=== PATIENT | female | born 1935 | race Caucasian/White ===

== ENCOUNTER 2021-07-26 14:15 | Outpatient (CLI) | payer MEDICARE, SELFPAY ==
--- NOTE | ~2021-07-26 | XR_ITS ---
XR chest 2V DATE: 07/26/2021 15:16 INDICATION: Dyspnea on exertion. History of atrial fibrillation. TECHNIQUE: AP and lateral views COMPARISON: 11/04/2019 AP and lateral chest FINDINGS: There is a moderately large right pneumothorax, the right lung apex down 4.6 cm. Bilateral hyperinflation suggests COPD. There is not obvious tension pneumothorax, but the examinatio n is limited due to some rotation of the patient. Chronic mild blunting of the costophrenic angles. Cardiomegaly. Aortic calcification and tortuosity. No apparent hilar or mediastinal enlargement. There is diffuse osteopenia. There is prominent anterior wedge fracture deformity of a thoracolumbar vertebra. Is a new finding since 11/04/2019. There is scoliosis and degenerative change of the thoracic spine. IMPRESSION: Moderately large right pneumothorax; right chest tube placement is recommended. I telephoned the patient's phone number provided by the registration desk in the late hours of 021 and and spoke with her daughter Sergo Bermudez at 2342 hours; I explained the presence of the critica l right pneumothorax and the need for urgent chest tube placement. I strongly advised her to have her mother brought to emergency room immediately. I assured her that I would notified the emergency room physician that her mother would be coming. I then called ER physician Dr. Berry at 2347 hours and appraised him of the situation; he stated that the emergency room would be expecting the patient. Reviewed, dictated and finalized at location A. IMPRESSION: Moderately large right pneumothorax; right chest tube placement is recommended. I telephoned the patient's phone number provided by the registration desk in e late hours of 07/26/2021 and and spoke with her daughter Sergo Bermudez at 2342 ho urs; I explained the presence of the critical right pneumothorax and the need f or urgent chest tube placement. I strongly advised her to have her mother broug ht to emergency room immediately. I assured her that I would notified the emerg ency room physician that her mother would be coming. I then called ER physician Dr. Berry at 2347 hours and appraised him of the situ ation; he stated that the emergency room would be expecting the patient.
[2021-07-26 15:48] LABS: Basophils Absolute Auto 0.1 K/mm3 (0.0-0.1); Basophils Percent Auto 0.7 % (0.2-1.2); Eosinophils Absolute Auto 0.2 K/mm3 (0-0.3); Eosinophils Percent Auto 1.7 % (0-4.4); Hematocrit 43.7 % (37.0-47.0); Immature Granulocyte Absolute 0.02 K/mm3 (0.00-0.031); Immature Granulocyte Percent A 0.2 % (0-0.5); Lymphocytes Absolute Auto 1.43 K/mm3 (0.9-3.2); Lymphocytes Percent Auto 15.9 % (18.3-44.2); Mean Corpuscular Hemoglobin 30.8 pg (26-34); Mean Platelet Volume 10.5 fl (7.4-10.4); Monocytes Percent Auto 11.1 % (2.6-8.5); Neutrophils Absolute Auto 6.4 K/mm3 (1.3-6.7); Neutrophils Percent Auto 70.4 % (45.5-73.1); Platelet Count Result 297 k/mm3 (150-375); Red Blood Count 4.55 M/mm3 (4.2-5.4); Red Cell Distribution Width 14.9 % (11.5-14.5)
[2021-07-26 16:19] LABS: Alanine Aminotransferase 19 U/L (4-35); Albumin Level 3.9 g/dL (3.5-5.1); Alkaline Phosphatase 121 U/L (38-126); Anion Gap 9 mmol/L (8-16); Aspartate Amino Transferase 41 U/L (14-36); Bilirubin,Total 0.5 mg/dL (0.2-1.3); Blood Urea Nitrogen 16 mg/dL (7-17); Calcium 9.8 mg/dL (8.4-10.2); Carbon Dioxide 25 mmol/L (22-30); Chloride 105 mmol/L (98-107); Estimated Glomerular Filt Rate > 60; Glucose 150 mg/dL (65-110); Magnesium 2.1 mg/dL (1.6-2.3); Potassium 4.2 mmol/L (3.4-5.0); Sodium 139 mmol/L (137-145)
[2021-07-26 16:25] LABS: NT Pro B Type Natriuretic Pept 2910 pg/mL (5-100)
== END 2021-07-26 14:16 | disposition home or self-care (01) ==
PROVIDERS: PCP Family Medicine Adolescent Medicine; Visit Provider Nurse Practitioner Adult Health
DX: R06.02 Shortness of breath (principal); J93.9 Pneumothorax, unspecified
CPT/HCPCS: 36415; 71046; 80053; 83735; 83880; 85025

== ENCOUNTER 2021-07-27 00:32 | Inpatient (IN) | payer MEDICARE, SELFPAY ==
[2021-07-27] VITALS (21 sets, daily range): BP systolic 101–124; BP diastolic 45–84; PULSE 89–127; RESP 12–29; TEMP 36.2–37.1; O2SAT 89–100; BMI 23.3
--- NOTE | ~2021-07-27 | XR_ITS ---
EXAMINATION: XR chest 1V portable INDICATION: Crepitus, right-sided chest tube TECHNIQUE: Portable AP chest at 1151 hours COMPARISON: 0536 hours FINDINGS: A right-sided chest tube is again seen which is not significantly changed in position accou nting for differences in technique. There is a small persistent right apical pneumothorax. Diffuse keys bcutaneous emphysema is again noted throughout the right chest wall which tracks into the right neck. There is an unchanged opacity of the right lower lobe. Mild atelectasis is noted in the left lung ba se. The heart size is normal. IMPRESSION: 1. Small right pneumothorax. No definite change in position of the right-sided chest tube. 2. Widespread subcutaneous emphysema of the right hemithorax tracking into the right neck. 3. Right lower lobe opacities, consistent with atelectasis versus pneumonia. Reviewed, dictated and finalized at location A.
--- NOTE | ~2021-07-27 | XR_ITS ---
EXAMINATION: XR chest 2V DATE: 07/29/2021 15:07 INDICATION: Chest tube removal TECHNIQUE: AP and lateral views of the chest are obtained. COMPARISON: 1151 hours FINDINGS: The right-sided chest tube has been removed. A small right apical pneumothorax persists wit hout significant change. There are stable airspace opacities of the right lung base. Subcutaneous emp hysema of the right chest wall extending into right neck, back, right breast, and right upper extremi ty is again noted. The cardiomediastinal silhouette is stable. There are small pleural effusions. The re is moderate thoracic spondylosis. IMPRESSION: 1. Small, stable right pneumothorax status post right chest tube removal. 2. Widespread emphysema of the right hemithorax. 3. Stable right lower lobe opacities, consistent with atelectasis versus pneumonia. Reviewed, dictated and finalized at location A. IMPRESSION: 1. Small, stable right pneumothorax status post right chest tube removal. 2. Widespread emphysema of the right hemithorax. 3. Stable right lower lobe opacities, consistent with atelectasis versus pneumo sherrell.
--- NOTE | ~2021-07-27 | XR_ITS ---
EXAMINATION: XR chest-chest tube insert/pos DATE: 07/30/2021 06:49 INDICATION: Shortness of breath and tachycardia TECHNIQUE: frontal view of the chest was obtained. COMPARISON: Chest radiograph dated 07/30/2021 at 5:12 AM FINDINGS: Interval placement of a apically directed right chest tube with significant decrease in size of a now small pneumothorax at the right apex where there is up to 1 cm separation of the pleural margins. Pe rsistent airspace opacity and architectural distortion at the right lower lung zone. Left lung remain s clear. No pleural effusion or left-sided pneumothorax. The cardiomediastinal silhouette is normal. Extensive subcutaneous emphysema at the right chest wall, neck and upper arm. IMPRESSION: 1. Decrease in size of a now small right apical pneumothorax post right chest tube placement. 2. Opacities and architectural distortion at the right lower lung zone which could represent atelecta sis and/or pneumonia. Reviewed, dictated and finalized at location A. IMPRESSION: 1. Decrease in size of a now small right apical pneumothorax post right chest t ube placement. 2. Opacities and architectural distortion at the right lower lung zone which co uld represent atelectasis and/or pneumonia.
--- NOTE | ~2021-07-27 | XR_ITS ---
EXAMINATION: XR chest 1V portable DATE: 07/28/2021 06:10 INDICATION: Right pneumothorax TECHNIQUE: frontal view of the chest was obtained. COMPARISON: Chest radiograph and CT dated 07/27/2021 FINDINGS: Again seen is a right sided chest tube which appears to been advanced slightly with the proximal side -port now projecting within the pleural margins. Small residual right pneumothorax at the apex. Again seen is extensive subcutaneous edema throughout the right hemithorax extending to the right neck and upper arm. The focal airspace opacity in the right lower lobe has decreased and appears new since th e radiograph performed prior to chest tube placement on 07/26/2021 which strongly argues against petra holland. Mild streaky atelectasis at the left lung base. Emphysema better appreciated on prior CT. No p leural effusion or left-sided pneumothorax. The cardiomediastinal silhouette is normal. Mild S-shaped thoracolumbar scoliosis. IMPRESSION: 1. Slight advancement of the right-sided chest tube with residual small right apical pneumothorax. Pe rsistent extensive body wall emphysema. 2. Improvement in prior right lower lobe opacity which could represent atelectasis, pneumonia or pulm onary hemorrhage related to chest tube placement. 3. Emphysema. Reviewed, dictated and finalized at location A. IMPRESSION: 1. Slight advancement of the right-sided chest tube with residual small right a pical pneumothorax. Persistent extensive body wall emphysema. 2. Improvement in prior right lower lobe opacity which could represent atelecta sis, pneumonia or pulmonary hemorrhage related to chest tube placement. 3. Emphysema.
--- NOTE | ~2021-07-27 | CT_ITS ---
EXAMINATION: CT chest high resolution wo ms EXAM DATE: 07/27/2021 10:38 INDICATION: mass vs pna . Pneumothorax, chest tube. TECHNIQUE: Spiral CT of the chest without contrast. HRCT. Axial, coronal and sagittal images of the c hest were reviewed. Coronal maximum intensity pixel images of chest reviewed. The dose-length produ ct (DLP) for this examination was 198.70 mGy-cm. The exposure was tailored according to patient size (auto mA exposure control), and iterative reconstruction (ASIR) was used as additional dose reductio n technique. Correlation is made to recent chest x-rays. FINDINGS: There is a right-sided chest tube. There is small right-sided pneumothorax. There is exten sive emphysema within the right thoracic, axillary sarcoma, supraclavicular soft tissues. Trace leonard cardial effusion. Tracheobronchial tree is patent. There is no mediastinal, hilar or axillary lymp hadenopathy. There is right lower lobe airspace disease, appearance is most consistent with pneumonia and atelectasis but follow-up to resolution is indicated to exclude any chronic underlying mass. The re is moderate to severe emphysema. Heart normal in size. No evidence of coronary arterial calcific ation. Upper abdomen is unremarkable. Chronic L1 burst fracture with about 5 mm retropulsion at th e superior endplate. Moderate loss of this vertebral body height anteriorly and mid aspect. IMPRESSION: 1. Small right pneumothorax. Chest tube in position. Extensive subcutaneous emphysema. 2. Patchy right lower lobe atelectasis and pneumonia. Underlying cancer not excludable. Follow-up CT in 3 months recommended. 3. Moderate to severe emphysema. Reviewed, dictated and finalized at location B. IMPRESSION: 1. Small right pneumothorax. Chest tube in position. Extensive subcutaneous em physema. 2. Patchy right lower lobe atelectasis and pneumonia. Underlying cancer not ex cludable. Follow-up CT in 3 months recommended. 3. Moderate to severe emphysema.
--- NOTE | ~2021-07-27 | XR_ITS ---
EXAMINATION: XR chest 1V portable INDICATION: Shortness of breath TECHNIQUE: Portable AP chest at 0512 hours COMPARISON: 07/29/2021 FINDINGS: There has been interval increase in size of the right-sided pneumothorax with near complete collapse of the right lung. The midline structures appear central. The cardiomediastinal silhouette is normal. Extensive subcutaneous emphysema is again seen on the right side. IMPRESSION: 1. Reaccumulation of right-sided pneumothorax with near complete collapse of the right lung. Chest tu be has been inserted at the time of interpretation. Reviewed, dictated and finalized at location A. IMPRESSION: 1. Reaccumulation of right-sided pneumothorax with near complete collapse of th e right lung. Chest tube has been inserted at the time of interpretation.
--- NOTE | ~2021-07-27 | XR_ITS ---
EXAMINATION: XR chest-chest tube insert/pos DATE: 07/27/2021 at 1:14 AM INDICATION: Chest tube placement for pneumothorax TECHNIQUE: frontal view of the chest was obtained. COMPARISON: Chest radiograph dated 07/26/2021 FINDINGS: Interval placement of a right-sided chest tube which projects over the lower lung zone. Slight decrea se in size of a still small to moderate right pneumothorax. Partial collapse of the right lung. This involves primarily the right middle and lower lobes with areas of focal increased opacity greater flaquito n expected for degree of collapse and cannot exclude underlying malignancy or pneumonia. Left lung re afshin clear but hyperexpanded consistent with possible underlying COPD. No pleural effusion or left p neumothorax. The cardiomediastinal silhouette is within normal limits conifer slight leftward rotatio n of the patient. Prominent subcutaneous emphysema at the lateral right chest wall. IMPRESSION: 1. Slight decrease in size with still small to moderate right pneumothorax post right chest tube plac ement. 2. Increased opacity in the partial collapse right middle or lower lobes which raises concern for und erlying pneumonia or malignancy. 3. Appearance suggestive but not diagnostic of underlying COPD. Reviewed, dictated and finalized at location A. IMPRESSION: 1. Slight decrease in size with still small to moderate right pneumothorax post right chest tube placement. 2. Increased opacity in the partial collapse right middle or lower lobes which raises concern for underlying pneumonia or malignancy. 3. Appearance suggestive but not diagnostic of underlying COPD.
--- NOTE | ~2021-07-27 | XR_ITS ---
XR chest 1V portable DATE: 07/27/2021 20:58 INDICATION: Check chest tube placement TECHNIQUE: Portable upright AP chest on 07/27/2021 at 2050 hours COMPARISON: 07/27/2021 portable AP chest at 0 to 48 hours FINDINGS: The chest tube has changed in position since 07/27/2021 at 0248 hours, partially dislodged, port situated at the lateral ribs, apparently within the chest wall, chest tube extending approximate ly 3 cm or less into the thorax. The right pneumothorax is difficult to optimally assess because of the extensive subcutaneous emphyse ma. There is patchy infiltrate in the right mid to upper and right basilar lung mendoza. There is suggesti on of COPD. No left pneumothorax. No pleural effusion is evident. Cardiomegaly. Aortic calcification, ectasia and tortuosity. Diffuse osteopenia. Levoscoliosis and degenerative change of the thoracic spine. IMPRESSION: Partially dislodged right chest tube with extensive right thoracic, abdominal, right uppe r extremity and right cervical subcutaneous emphysema, increased substantially since 0248 hours Right pneumothorax is difficult to assess due to the extensive subcutaneous emphysema. Reviewed, dictated and finalized at location A. IMPRESSION: Partially dislodged right chest tube with extensive right thoracic, abdominal, right upper extremity and right cervical subcutaneous emphysema, in creased substantially since 0248 hours Right pneumothorax is difficult to assess due to the extensive subcutaneous emp hysema.
--- NOTE | ~2021-07-27 | XR_ITS ---
EXAMINATION: XR chest 1V portable DATE: 07/27/2021 at 2:48 AM INDICATION: Pneumothorax TECHNIQUE: frontal view of the chest was obtained. COMPARISON: Chest radiograph dated 07/27/2021 at 2:23 AM FINDINGS: Unchanged right chest tube which projects over the mid lung zone. The small to moderate right pneumot horax appears to be increased in size now relatively equally distributed between the right upper and lower lung zones. Persistent focal airspace opacity in the partially collapsed right middle or lower lobe. Mild streaky atelectasis at the left lower lung zone. No pleural effusion or left-sided pneumot horax. The cardiomediastinal silhouette is normal. Unchanged subcutaneous emphysema at the lateral ri ght chest wall. IMPRESSION: 1. Mild interval increase in size of a small to moderate right pneumothorax with unchanged right ches t tube. 2. Focal masslike opacity in the partially collapsed right middle or lower lobe which could be due to atelectasis but raises concern for pneumonia or malignancy. Reviewed, dictated and finalized at location A. IMPRESSION: 1. Mild interval increase in size of a small to moderate right pneumothorax wit h unchanged right chest tube. 2. Focal masslike opacity in the partially collapsed right middle or lower lobe which could be due to atelectasis but raises concern for pneumonia or malignan cy.
--- NOTE | ~2021-07-27 | XR_ITS ---
EXAMINATION: XR chest-chest tube insert/pos DATE: 07/27/2021 at 2:23 AM INDICATION: Chest tube insertion for right pneumothorax TECHNIQUE: frontal view of the chest was obtained. COMPARISON: Chest radiograph dated 07/27/2021 at 1:34 AM FINDINGS: Interval exchange of a right chest tube with the new tube projecting over the mid right lung zone. Co ntinued decrease in size of a now small residual right pneumothorax accumulating primarily at the low er lung zone. Persistent opacity in the partially collapsed right lower lung which could be due to at electasis but which raises concern for underlying pneumonia or malignancy. Visualized left lung remai ns clear with no pleural effusion or pneumothorax. The lateral most left lung is excluded from the fi eld-of-view. The cardiomediastinal silhouette is normal. Persistent subcutaneous emphysema at the lat eral right chest wall. IMPRESSION: 1. Continued decrease in size of a now small right pneumothorax post right chest tube replacement. 2. Opacity in the partially collapsed right lower lung which could be due to atelectasis but raises c oncern for underlying pneumonia or malignancy. Reviewed, dictated and finalized at location A. IMPRESSION: 1. Continued decrease in size of a now small right pneumothorax post right ches t tube replacement. 2. Opacity in the partially collapsed right lower lung which could be due to at electasis but raises concern for underlying pneumonia or malignancy.
--- NOTE | ~2021-07-27 | XR_ITS ---
EXAMINATION: XR chest 1V portable INDICATION: Right pneumothorax TECHNIQUE: Portable AP chest at 0904 hours COMPARISON: 07/30/2021 FINDINGS: A right-sided chest tube is again seen. There is a small right pneumothorax with slight int erval increase in size. Airspace opacity of the right lung base is stable. The left lung is clear. Th ere is no pleural effusion. The cardiomediastinal silhouette is normal. Extensive right sided subcuta neous gas persists but is slightly improved. IMPRESSION: 1. Small right pneumothorax with slight worsening. Reviewed, dictated and finalized at location A.
--- NOTE | ~2021-07-27 | XR_ITS ---
EXAMINATION: XR chest 1V portable DATE: 07/27/2021 at 1:34 AM INDICATION: Pneumothorax post chest tube placement with residual shortness of breath. TECHNIQUE: frontal view of the chest was obtained. COMPARISON: Chest radiograph dated 07/27/2021 at 1:14 AM FINDINGS: Continued gradual decrease in size of a residual small to moderate-sized right pneumothorax. Right ch est tube projecting over the lower lung zone remains unchanged. Persistent focal opacity in the parti ally collapsed right middle or lower lobe suspicious for pneumonia or malignancy. Left lung remains c lear. No pleural effusion or left pneumothorax. The cardiomediastinal silhouette is normal. Prominent subcutaneous edema at the lateral right chest wall. IMPRESSION: 1. Unchanged right chest tube with gradual decrease in a small to moderate-sized residual right pneum othorax. 2. Opacities in the partially collapsed right middle or lower lobe raising concern for pneumonia or m alignancy. Reviewed, dictated and finalized at location A. IMPRESSION: 1. Unchanged right chest tube with gradual decrease in a small to moderate-size d residual right pneumothorax. 2. Opacities in the partially collapsed right middle or lower lobe raising conc adelita for pneumonia or malignancy.
--- NOTE | ~2021-07-27 | XR_ITS ---
EXAMINATION: XR chest 1V portable DATE: 07/29/2021 05:46 INDICATION: Right pneumothorax TECHNIQUE: frontal view of the chest was obtained. COMPARISON: Chest radiograph dated 07/28/[address] dated 07/27/2021 FINDINGS: Tiny residual right apical pneumothorax with unchanged chest tube projecting over the lateral right m idlung zone. Persistent subtle opacity right lower lung zone. No pleural effusion or left pneumothora x. The cardiomediastinal silhouette is normal. Unchanged extensive soft tissue gas at the right chest wall extending to the right neck and upper arm. IMPRESSION: 1. Residual tiny right apical pneumothorax with unchanged right chest tube. 2. Persistent opacity in the right lower lobe which could represent atelectasis and/or pneumonia. 3. Emphysema better appreciated on prior CT. Reviewed, dictated and finalized at location A.
--- NOTE | 2021-07-27 00:59 | ECG_ITS ---
Measurements Intervals [place] Rate: 101 P: AR: 0 QRS: 73 QRSD: 75 T: 20 QT: 370 QTc: 481 Interpretive Statements ATRIAL FIBRILLATION WITH RAPID VENTRICULAR RESPONSE VENTRICULAR PREMATURE COMPLEX BORDERLINE T WAVE ABNORMALITY- ANTERIOR LEADS BASELINE ARTIFACT- I, II, III, AVR, AVL, AVF, V1-V6 ABNORMAL ECG Electronically Signed On 07-27-2021 6:11:00 CDT by Stanton Mckeon D.O.
--- NOTE | 2021-07-27 01:01 | ED.GENADULT ---
HPI - General Adult General Chief complaint: Shortness of Breath/Dyspnea Stated complaint: sob Time Seen by Provider: 07/27/21 00:35 Source: patient and family History of Present Illness HPI narrative: Patient is a 86 y/o female complaining of mild SOB for last 3 days. She is SOB at rest, but her symptoms get worse with exertion. She has no chest pain. She has some mild cough. She was in Dr. Minaya's office and outpatient Xray was ordered. Xray showed pneumothorax and she was directed to ED for further evaluation. Related Data Allergies Allergy/AdvReac Type Severity Reaction Status Date / Time Penicillins Allergy Unknown Unknown Verified 07/27/21 01:18 Review of Systems Constitutional: Constitutional: Denies chills, Denies fever(s), Denies headache(s) and Denies weakness Eyes: Eyes: Denies blurry vision ENT: Denies headache(s) and Denies neck pain Cardiovascular: Cardiovascular: Denies chest pain and Denies dyspnea Respiratory: Respiratory: Reports cough and Reports dyspnea Gastrointestinal: Gastrointestinal: Denies abdominal pain, Denies diarrhea, Denies nausea and Denies vomiting Genitourinary: Genitourinary: Denies hematuria and Denies dysuria Musculoskeletal: Musculoskeletal: Denies back pain and Denies neck pain Neurologic: Denies headache(s) and Denies weakness [facility] Past Medical History Medical History (Updated 07/27/21 @ 16:15 by Katherine Berry MD) Afib Anemia Back pain Depression Left elbow fracture Leg fracture, right Shingles UTI (urinary tract infection) Surgical History Surgical History (Updated 07/27/21 @ 07:50 by Kayla James DO) History of appendectomy History of tonsillectomy Status post cataract extraction of both eyes with insertion of intraocular lens Family History Family History Father Acute myocardial infarction Mother Alcoholism Sibling Cirrhosis Social History Social History Social History: She is since 2017. Her oldest daughter Rose lives with her. She has had 3 daughters. 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 Lifelong nonsmoker, no alcohol or illicit drugs. Had heavy secondhand smoke exposure as a child and young adult. Code status: DNR/DNI per patient request. She states that she is lift a long full life and is not afraid of . Healthcare power of divorce attorney: Rose (daughter) Smoking status: Never smoker Alcohol intake: never Substance use: never Gender identity (if verbalized by the patient): Female Spiritual care concerns: No Agree to blood products: Yes Exam Const: General: no acute distress and well developed Orientation/consciousness: oriented to person, oriented to place, oriented to time and patient oriented x3 HENMT: Head: normocephalic Ears: external ears normal General nose exam: Normal external nose present Eyes: General: appearance normal, both eyes and all related structures Conjunctivae: conjunctivae normal Neck: Neck: normal visual inspection and full ROM Chest: Chest palpation & inspection: normal inspection of the chest and no tenderness Resp: Effort & Inspection: normal respiratory effort Auscultation: clear to auscultation bilaterally and diminished lung sounds on the right Cardio: Rate: regular rate Rhythm: abnormal rhythm irregularly irregular GI: GI Palp: No abdominal tenderness and Yes Soft to palpation Skin: General skin exam: normal color and turgor normal Neuro: General: oriented to person, oriented to place, oriented to time and patient oriented x3 Cognition (Neuro): normal cognition Extrem: General: normal to inspection, full ROM and no pedal edema Psych: Appearance: grossly normal Mental Status: mental status grossly normal Affect: normal affect Course Consultations Consultation #1: Discussed with Dr. Savage, who agr
[2021-07-27 01:17] LABS: Basophils Absolute Auto 0.1 K/mm3 (0.0-0.1); Basophils Percent Auto 0.8 % (0.2-1.2); Eosinophils Absolute Auto 0.2 K/mm3 (0-0.3); Eosinophils Percent Auto 1.7 % (0-4.4); Hematocrit 46.2 % (37.0-47.0); Hemoglobin 14.7 g/dL (12.0-15.0); Immature Granulocyte Absolute 0.04 K/mm3 (0.00-0.031); Immature Granulocyte Percent A 0.4 % (0-0.5); Lymphocytes Absolute Auto 2.01 K/mm3 (0.9-3.2); Lymphocytes Percent Auto 19.5 % (18.3-44.2); Mean Corpuscular HGB Conc 31.8 g/dl (32-36); Mean Corpuscular Hemoglobin 30.8 pg (26-34); Mean Corpuscular Volume 96.7 fl (80-100); Monocytes Absolute Auto 0.8 K/mm3 (0.1-0.6); Monocytes Percent Auto 7.3 % (2.6-8.5); Neutrophils Absolute Auto 7.2 K/mm3 (1.3-6.7); Neutrophils Percent Auto 70.3 % (45.5-73.1); Platelet Count Result 310 k/mm3 (150-375); Red Blood Count 4.78 M/mm3 (4.2-5.4); Red Cell Distribution Width 14.8 % (11.5-14.5); White Blood Count 10.3 K/mm3 (4.5-10.0)
[2021-07-27 01:29] LABS: Partial Thromboplastin Time 31.4 SECONDS (22.3-36.8); Prothrombin Time 12.6 Seconds (11.1-14.7)
[2021-07-27 01:31] LABS: Alanine Aminotransferase 20 U/L (4-35); Albumin Level 4.2 g/dL (3.5-5.1); Alkaline Phosphatase 131 U/L (38-126); Anion Gap 10 mmol/L (8-16); Aspartate Amino Transferase 34 U/L (14-36); Bilirubin,Total 0.8 mg/dL (0.2-1.3); Blood Urea Nitrogen 16 mg/dL (7-17); Calcium 9.6 mg/dL (8.4-10.2); Carbon Dioxide 23 mmol/L (22-30); Chloride 105 mmol/L (98-107); Estimated Glomerular Filt Rate 60; Glucose 152 mg/dL (65-110); Potassium 4.1 mmol/L (3.4-5.0); Sodium 138 mmol/L (137-145)
--- NOTE | 2021-07-27 05:26 | ADMGEN ---
This patient, Mónica Blum, was admitted to IMU Room 212-01 at 0520. Patient/family oriented to hospital policies and general routines including ID bracelet, bed and alarms, visiting hours, pain management, procedures, bathroom and other care routines, personal items, smoking policy, room service/diet, and visiting hours. Information on how to activate the Rapid Response Team has been discussed. Patient/Family are encouraged to report perceived risks to care and to ask questions if they do not understand what they are told or what they should do.
[2021-07-27] MEDS: MORPHINE SULFATE (*CRX) 2 MG/ML INJ IV PUSH (06:20)
--- NOTE | 2021-07-27 06:24 | PC.NURSE ---
chest tube to rt chest. dressing dry and intact. noted bubbling in box with any movement, deep breath, cough or blowing of her nose. patient is in extreme pain and called dr meza for pain medication. had shar housekeeper child care, coleen stiles and myself try to minimize the leak. decreased it but is not gone. when patient is relaxed and not moving no leak noted. no crepitus noted. bloody drainage in chamber and secured to patients leg and to the chest tube box secured to bed. surgeon will be in a few hours to see patient.
--- NOTE | 2021-07-27 06:30 | PM.IMHP ---
H&P: HPI History of Present Illness Date/Time: 07/27/21 06:30 Chief Complaint: Pneumothorax on outpatient imaging Narrative: 86-year-old female with a past medical history of chronic atrial fibrillation and x-ray evidence of emphysema who presented to the ER from home via private vehicle due to shortness of breath and pneumothorax noted on outpatient imaging. The patient had some mild shortness of breath for 3 days. Her symptoms were worse with exertion. She went for outpatient evaluation by Dr. Kevin Minaya and had an x-ray performed which demonstrated a large right-sided pneumothorax. She was directed to come to the ER. She states that Dr. Kevin Minaya did the chest x-ray because he was going down his check list and she must of set enough thinks that made him suspicious to check an x-ray. She was not having any chest pain. She denies lower extremity swelling or orthopnea. She has not had any recent trauma. She had prior x-rays in the past demonstrated emphysematous changes. The patient reports that she never smoked and does not have a known history of COPD. Review of Systems Review of Systems: 12 systems were reviewed with pertinent positives and negatives per HPI. Except as documented in the HPI, all other systems were reviewed and are negative. [facility] Past Medical History Medical History (Updated 07/27/21 @ 06:35 by Kayla James DO) Afib Anemia Back pain Depression Left elbow fracture Leg fracture, right Shingles UTI (urinary tract infection) Surgical History Surgical History (Updated 07/27/21 @ 07:50 by Kayla James DO) History of appendectomy History of tonsillectomy Status post cataract extraction of both eyes with insertion of intraocular lens Family History Family History (Updated 07/27/21 @ 07:48 by Kayla James DO) Father Acute myocardial infarction Mother Alcoholism Sibling Cirrhosis Social History Social History (Updated 07/27/21 @ 07:47 by Kayla James DO) Social History: She is since 2017. Her oldest daughter Rose lives with her. She has had 3 daughters. 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 Lifelong nonsmoker, no alcohol or illicit drugs. Had heavy secondhand smoke exposure as a child and young adult. Code status: DNR/DNI per patient request. She states that she is lift a long full life and is not afraid of . Healthcare power of claims attorney: Rose (daughter) Smoking status: Never smoker Alcohol intake: never Substance use: never Gender identity (if verbalized by the patient): Female Spiritual care concerns: No Agree to blood products: Yes Comments She has 1 brother in [place]. Her neck sister of cirrhosis. She has 3 much younger younger siblings at her still living and in good health. Meds Home Medications and Allergies Home Medications Medication Instructions Recorded Confirmed Type aspirin 325 mg PO DAILY #30 tablet 11/08/19 07/27/21 Rx metoprolol tartrate 37.5 mg PO Q12HR #60 tablet 11/08/19 07/27/21 Rx Allergies Allergy/AdvReac Type Severity Reaction Status Date / Time Penicillins Allergy Unknown Unknown Verified 07/27/21 01:18 Vital Signs Vital Signs - 24 hr 07/27/21 00:34 07/27/21 00:52 07/27/21 01:15 Temperature 97.8 F Pulse Rate 99 100 Respiratory Rate 16 16 Blood Pressure 119/84 124/48 L Pulse Oximetry 92 92 94 07/27/21 01:17 07/27/21 02:09 07/27/21 02:13 Temperature Pulse Rate 92 108 H Respiratory Rate 29 H 23 H Blood Pressure 114/81 111/67 Pulse Oximetry 93 95 93 07/27/21 03:03 07/27/21 03:24 07/27/21 04:22 Temperature Pulse Rate 107 H 102 H 104 H Respiratory Rate 18 20 26 H Blood Pressure 110/69 112/72 117/66 Pulse Oximetry 99 100 99 07/27/21 05:22 07/27/21 05:34 07/27/21 05:46 Temperature 98.4 F Pulse Rate 103 H 104 H 104 H Respiratory Rate 24 H 22 H 22 H Blood Pressure 117/69 111/82 Pulse O
[2021-07-27] MEDS: HYDROcodone/acetaminophen (*CRX) 5-325 MG TABLET 1 TAB PO ×3 (07:05→21:10)
[2021-07-27] MEDS: ASPIRIN 325 MG TABLET PO (08:27)
[2021-07-27] MEDS: METOPROLOL TARTRATE 12.5 MG TABLET PO ×2 (08:27→19:53)
[2021-07-27] MEDS: METOPROLOL TARTRATE 25 MG TABLET PO ×2 (08:27→19:52)
[2021-07-27] MEDS: MORPHINE SULFATE (*CRX) 4 MG/ML INJ IV PUSH (08:39)
[2021-07-27 08:43] LABS: Hemoglobin A1C 5.8 % (<5.7)
--- NOTE | 2021-07-27 12:05 | PM.CNGS ---
Assessment and Plan Assessment and plan (1) Spontaneous pneumothorax: Code(s): J93.83 - Other pneumothorax Status: Acute Assessment and Plan: Large right pneumothorax with chest tube placed in the ER and in good position. There is an air leak on exam. Keep chest tube to -20 cm wall suction and reassess chest x-ray tomorrow morning. Chest CT ordered by Hospitalist today due to opacity noted on x-ray in the partially collapsed right lower lung. Will add incentive spirometry. (2) Atrial fibrillation with rapid ventricular response: Code(s): I48.91 - Unspecified atrial fibrillation Status: Acute Assessment and Plan: Rate controlled on my exam. On telemetry in IMU with heart rate in 90-100's. Okay to transfer her out to a medical floor from our standpoint. Additional Plan I have discussed the patient's case and plan of care with Dr. Savage. History of Present Illness Consult details Consult date: 07/27/21 Reason for consult: chest tube (Right pneumothorax) Requesting physician: Katherine Berry MD Narrative: This is an 86-year-old female who was directed to the ER for evaluation after having findings of a large right pneumothorax on an outpatient chest x-ray. She is a poor historian when questioning her about recent history, therefore her history was obtained from her electronic medical record and after speaking with her daughter on the phone with the patient's permission. She reports the patient and herself had a cough with congestion about 2-3 weeks ago, which has since improved after receiving oral antibiotics. Over the past few days, she noticed worsening shortness of breath with exertion, and yesterday her mother was short of breath at rest with audible wheezing. Therefore, she scheduled an appointment with her Cardiology out of concern that it was related to her heart. She saw Cardiology yesterday as an outpatient and they ordered a chest x-ray. The patient was called through the night with the results and directed to go to the ER. Chest x-ray showed large right pneumothorax. No recent trauma. A chest tube was placed in the ER with only slight improvement of the pneumothorax, therefore a larger chest tube was placed. This resulted in more expansion of the lung, but still not full expansion. She was admitted to the Hospitalist. Our service was consulted for the chest tube. The patient denies any specific complaints when seen on the floor. Her chest tube is to -20 cm wall suction on my exam. Also, when speaking to her daughter on the phone, she does report that her confusion and memory loss is the patient's baseline. Review of Systems Review of Systems: ROS unobtainable: Yes other (limited d/t pt being a poor historian, likely dementia) [facility] Past Medical History Medical History (Updated 07/27/21 @ 06:35 by Kayla James DO) Afib Anemia Back pain Depression Left elbow fracture Leg fracture, right Shingles UTI (urinary tract infection) Surgical History Surgical History (Updated 07/27/21 @ 07:50 by Kayla James DO) History of appendectomy History of tonsillectomy Status post cataract extraction of both eyes with insertion of intraocular lens Family History Family History Father Acute myocardial infarction Mother Alcoholism Sibling Cirrhosis Social History Social History Social History: She is since 2017. Her oldest daughter Rose lives with her. She has had 3 daughters. 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 Lifelong nonsmoker, no alcohol or illicit drugs. Had heavy secondhand smoke exposure as a child and young adult. Code status: DNR/DNI per patient request. She states that she is lift a long full life and is not afraid of . Healthcare power of corporate associate attorney: Rose (daughter) Smoking status: Never smok
--- NOTE | 2021-07-27 14:33 | PM.IMPN ---
Progress Note: A&P Assessment and Plan (1) Spontaneous pneumothorax: Code(s): J93.83 - Other pneumothorax Status: Acute Assessment and Plan: Pneumothorax improved after chest tube placement ER. -currently on room air -chest CT shows atelectasis and pneumonia, start ceftriaxone and doxycycline (QTC slightly prolonged) -no signs of COVID at this time -Management per Surgical Service -Consider PT and OT when pt is more stable. (2) Atrial fibrillation with rapid ventricular response: Code(s): I48.91 - Unspecified atrial fibrillation Status: Acute Assessment and Plan: Patient has chronic atrial fibrillation and her heart rate waxes and wanes -continue home metoprolol -on daily aspirin (3) Pneumonia: Code(s): J18.9 - Pneumonia, unspecified organism Status: Acute Assessment and Plan: Patient CT shows right lower lobe pneumonia and atelectasis -plan to treat with ceftriaxone and doxycycline (QTC slightly elevated) -patient is currently off oxygen -no signs of sepsis (4) Impaired cognition: Code(s): R41.89 - Other symptoms and signs involving cognitive functions and awareness Status: Acute Assessment and Plan: Family states pt has a hx of repeating herself and some confusion -She is at [facility] -no official diagnosis of dementia per family but it is suspected -alert and oriented x 4 but is confused at times -monitor Time Spent With Patient Time with patient: 25 - 35 minutes Subjective Date/time seen: 07/27/21 14:33 Interval history: Pt is a 86-year-old female here for pneumothorax. Patient was seen today with no complaints. Although she is confused, she is able to answer questions appropriately. Pt denies nausea, vomiting, fevers, chills, constipation, diarrhea, chest pain, sob, or abdominal pain. Review of Systems Review of Systems: All systems reviewed & are unremarkable except as noted in HPI and below Exam Narrative: General: Well developed well nourished patient in NAD HEENT: normocephalic Neck: supple Neuro: Alert and oriented x4 technically but does have evidence confusion/dementia. She moves all her limbs spontaneously and does not appear to have any neurological deficits CV: Irregularly irregular Resp: Chest tube in place. Bilateral clear breath sounds throughout Abd: Soft, non distended. No pain to palpation. Positive bowel sounds Extremities: No swelling, erythema, or pain to palpation. Objective Data Vital Signs Vital Signs: Vital Signs - 24 hr 07/27/21 00:34 07/27/21 00:52 07/27/21 01:15 Temperature 97.8 F Pulse Rate 99 100 Respiratory Rate 16 16 Blood Pressure 119/84 124/48 L Pulse Oximetry 92 92 94 07/27/21 01:17 07/27/21 02:09 07/27/21 02:13 Temperature Pulse Rate 92 108 H Respiratory Rate 29 H 23 H Blood Pressure 114/81 111/67 Pulse Oximetry 93 95 93 07/27/21 03:03 07/27/21 03:24 07/27/21 04:22 Temperature Pulse Rate 107 H 102 H 104 H Respiratory Rate 18 20 26 H Blood Pressure 110/69 112/72 117/66 Pulse Oximetry 99 100 99 07/27/21 05:22 07/27/21 05:34 07/27/21 05:46 Temperature 98.4 F Pulse Rate 103 H 104 H 104 H Respiratory Rate 24 H 22 H 22 H Blood Pressure 117/69 111/82 Pulse Oximetry 98 89 L 89 L 07/27/21 06:00 07/27/21 08:00 07/27/21 08:27 Temperature 98.7 F Pulse Rate 108 H 108 H 89 Respiratory Rate 16 Blood Pressure 113/59 L Pulse Oximetry 100 07/27/21 10:00 07/27/21 12:00 Temperature 97.1 F L Pulse Rate 104 H 105 H Respiratory Rate 16 Blood Pressure 101/45 L Pulse Oximetry 99 Intake/Output Intake/Output: Intake & Output 07/24/21 07/25/21 07/26/21 07/27/21 23:59 23:59 23:59 23:59 Intake Total 240 Balance 240 Meds/Results Medications: Active Medications Generic Name Dose Route Start Last Admin Trade Name Freq PRN Reason Stop Dose Admin Hydrocodone Bitart/Acetaminophen 1 tab
[2021-07-27] MEDS: DOXYCYCLINE HYCLATE 100 MG TABLET PO (19:52)
[2021-07-27] MEDS: LORazepam INJ (*CRX) 2 MG/ML VIAL 1 MG IV PUSH (21:12)
[2021-07-28] VITALS (11 sets, daily range): BP systolic 98–121; BP diastolic 46–70; PULSE 64–109; RESP 17–21; TEMP 35.9–37.1; O2SAT 92–96
[2021-07-28] MEDS: ALBUTEROL SULFATE (*SP) AEROSOL 1 PUFF 2 PUFF INHALATION ×4 (00:15→20:33)
[2021-07-28] MEDS: MORPHINE SULFATE (*CRX) 4 MG/ML INJ IV PUSH ×3 (00:59→23:07)
[2021-07-28 05:36] LABS: Hematocrit 40.3 % (37.0-47.0); Hemoglobin 12.4 g/dL (12.0-15.0); Mean Corpuscular HGB Conc 30.8 g/dl (32-36); Mean Corpuscular Hemoglobin 30.9 pg (26-34); Mean Corpuscular Volume 100.5 fl (80-100); Mean Platelet Volume 10.3 fl (7.4-10.4); Platelet Count Result 257 k/mm3 (150-375); Red Blood Count 4.01 M/mm3 (4.2-5.4); Red Cell Distribution Width 14.7 % (11.5-14.5); White Blood Count 10.4 K/mm3 (4.5-10.0)
[2021-07-28] MEDS: ASPIRIN 325 MG TABLET PO (08:23)
[2021-07-28] MEDS: METOPROLOL TARTRATE 12.5 MG TABLET PO ×2 (08:23→20:51)
[2021-07-28] MEDS: DOXYCYCLINE HYCLATE 100 MG TABLET PO ×2 (08:24→20:51)
[2021-07-28] MEDS: METOPROLOL TARTRATE 25 MG TABLET PO ×2 (08:24→20:53)
[2021-07-28 10:18] LABS: Anion Gap 6 mmol/L (8-16); Blood Urea Nitrogen 17 mg/dL (7-17); Calcium 8.4 mg/dL (8.4-10.2); Carbon Dioxide 24 mmol/L (22-30); Chloride 104 mmol/L (98-107); Estimated CRCL calculation 47 ml/min; Estimated Glomerular Filt Rate > 60; Glucose 86 mg/dL (65-110); Potassium 4.2 mmol/L (3.4-5.0); Sodium 134 mmol/L (137-145)
[2021-07-28] MEDS: HYDROcodone/acetaminophen (*CRX) 5-325 MG TABLET 1 TAB PO (10:34)
--- NOTE | 2021-07-28 11:23 | PM.PNGS ---
Progress Note: A&P Assessment and Plan (1) Pneumothorax on right: Code(s): J93.9 - Pneumothorax, unspecified Status: Acute Assessment and Plan: stable, will place CT to H2O seal, recheck CXR in am Subjective Subjective Date/Time Seen: 07/28/21 11:23 pt seen and examined, events overnight noted, now c sitter Review of Systems Review of Systems: ROS unobtainable: Yes unobtainable due to medical condition and unobtainable due to mental status Exam Const: General: ill appearing Nutritional Appearance: average body habitus Orientation/consciousness: confusion, patient obtunded and lethargic Limitations: altered mental status Chest: Chest palpation & inspection: normal inspection of the chest Resp: Effort & Inspection: normal respiratory effort Auscultation: diminished lung sounds Other: R CT - C/D/I, no air leak Cardio: Rate: tachycardic Rhythm: regular rhythm GI: Inspection: normal to inspection and non-distended GI Palp: Yes Soft to palpation and No Tenderness to palpation present (GI) Objective Data Vital Signs Vital Signs: Vital Signs - 24 hr 07/27/21 12:00 07/27/21 16:00 07/27/21 19:52 Temperature 36.2 C L 37.1 C Pulse Rate 105 H 116 H 126 H Respiratory Rate 16 12 Blood Pressure 101/45 L 111/54 L Pulse Oximetry 99 93 07/27/21 19:53 07/27/21 21:59 07/28/21 00:00 Temperature 36.5 C Pulse Rate 127 H 100 Respiratory Rate 18 20 Blood Pressure 108/70 Pulse Oximetry 91 92 07/28/21 05:00 07/28/21 08:52 Temperature 36.6 C 36.1 C L Pulse Rate 106 H 103 H Respiratory Rate 20 21 H Blood Pressure 109/61 109/54 L Pulse Oximetry 96 95 Intake/Output Intake/Output: Intake & Output 07/25/21 07/26/21 07/27/21 07/28/21 23:59 23:59 23:59 23:59 Intake Total 530 0 Output Total 160 150 Balance 370 -150 Meds/Results Medications: Active Medications Generic Name Dose Route Start Last Admin Trade Name Freq PRN Reason Stop Dose Admin Hydrocodone Bitart/Acetaminophen 1 tab 07/27/21 06:05 07/28/21 10:34 Hydrocodone/Acetaminophen (*Crx) 5-325 Mg Tablet PO 1 tab Q6H PRN Administration Pain Rated 4-6 Albuterol 2 puff 07/27/21 21:15 07/28/21 06:15 Albuterol Sulfate (*Sp) Aerosol 1 Puff INHALATION Not Given Q4HRT [facility] Aspirin 325 mg 07/27/21 08:00 07/28/21 08:23 Aspirin 325 Mg Tablet PO 325 mg DAILY@0800 DAYANARA Administration Doxycycline Hyclate 100 mg 07/27/21 21:00 07/28/21 08:24 Doxycycline Hyclate 100 Mg Tablet PO 100 mg Q12HR DAYANARA Administration Ceftriaxone Sodium/Dextrose 1 gm in 50 mls @ 100 mls/hr 07/27/21 14:40 07/28/21 08:23 Rocephin 1 Gm/D5w 50 Ml IVPB 100 mls/hr QAM DAYANARA Administration Metoprolol Tartrate 25 mg 07/27/21 09:00 07/28/21 08:24 Metoprolol Tartrate 25 Mg Tablet PO 25 mg Q12HR DAYANARA Administration Metoprolol Tartrate 12.5 mg 07/27/21 09:00 07/28/21 08:23 Metoprolol Tartrate 12.5 Mg Tablet PO 12.5 mg Q12HR DAYANARA Administration Morphine Sulfate 4 mg 07/27/21 07:00 07/28/21 00:59 Morphine Sulfate (*Crx) 4 Mg/Ml Inj IV PUSH 4 mg Q3H PRN Administration Pain Rated 7-10 Radiology Results: ITS Impressions High Resolution CT 07/27/21 12:12 IMPRESSION: 1. Small right pneumothorax. Chest tube in position. Extensive subcutaneous emphysema. 2. Patchy right lower lobe atelectasis and pneumonia. Underlying cancer not excludable. Follow-up CT in 3 months recommended. 3. Moderate to severe emphysema. Chest X-Ray 07/28/21 08:01 IMPRESSION: 1. Slight advancement of the right-sided chest tube with residual small right apical pneumothorax. Persistent extensive body wall emphysema. 2. Improvement in prior right lower lobe opacity which could represent atelectasis, pneumonia or pulmonary hemorrhage related to chest tube placement. 3. Emphysema. Labs Labs: Laboratory Results - last 24 hr 07/28/21 07/28/21 04:26 08:22 WBC 10.4 H RBC 4.0
--- NOTE | 2021-07-28 14:29 | PM.IMPN ---
Progress Note: A&P Assessment and Plan (1) Spontaneous pneumothorax: Code(s): J93.83 - Other pneumothorax Status: Acute Assessment and Plan: Pneumothorax improved after chest tube placement ER. -currently on room air - patient apparently tried to pull out her chest tube while she was confused last night. Chest x-ray this morning shows that it is in place and there is a slight residual small apical pneumothorax. - repeat chest x-ray tomorrow morning -chest CT earlier in the stay shows atelectasis and pneumonia, continue ceftriaxone and doxycycline (QTC slightly prolonged). differential could be pulmonary hemorrhage -no signs of COVID at this time -Management per Surgical Service -Consider PT and OT when pt is more stable. (2) Atrial fibrillation with rapid ventricular response: Code(s): I48.91 - Unspecified atrial fibrillation Status: Acute Assessment and Plan: Patient has chronic atrial fibrillation and her heart rate waxes and wanes -continue home metoprolol -on daily aspirin (3) Pneumonia: Code(s): J18.9 - Pneumonia, unspecified organism Status: Acute Assessment and Plan: Patient CT shows right lower lobe pneumonia and atelectasis. differential could be pulmonary hemorrhage - continue ceftriaxone and doxycycline (QTC slightly elevated) -patient is currently off oxygen -no signs of sepsis (4) Impaired cognition: Code(s): R41.89 - Other symptoms and signs involving cognitive functions and awareness Status: Acute Assessment and Plan: Family states pt has a hx of repeating herself and some confusion - she had some confusion overnight, likely sundowning and hospital delirium -no official diagnosis of dementia per family but it is suspected -monitor Subjective Date/time seen: 07/28/21 14:29 Interval history: Pt is a 86-year-old female here for pneumothorax. Patient was seen today And stated her pain was a 6/10 to her right chest. She would not like any pain medications but I let her know if she changes her mind to let us now. Although she is confused, she is able to answer questions appropriately. Pt denies nausea, vomiting, fevers, chills, constipation, diarrhea, chest pain, sob, or abdominal pain. She does not usually have a Leger catheter at home. Exam Narrative: General: Well developed well nourished patient in NAD HEENT: normocephalic Neck: supple Neuro: Alert and oriented to herself coming year and president but did not know where she was. evidence of confusion/dementia. She moves all her limbs spontaneously and does not appear to have any neurological deficits CV: regular rate and rhythm on exam today. subcutaneous emphysema noted on her chest and arms Resp: Chest tube in place. Bilateral clear breath sounds throughout with crackles Abd: Soft, non distended. No pain to palpation. Positive bowel sounds Extremities: No swelling, erythema, or pain to palpation. crepitus to the right arm Objective Data Vital Signs Vital Signs: Vital Signs - 24 hr 07/27/21 16:00 07/27/21 19:52 07/27/21 19:53 Temperature 98.8 F Pulse Rate 116 H 126 H 127 H Respiratory Rate 12 Blood Pressure 111/54 L Pulse Oximetry 93 07/27/21 21:59 07/28/21 00:00 07/28/21 05:00 Temperature 97.7 F 97.8 F Pulse Rate 100 106 H Respiratory Rate 18 20 20 Blood Pressure 108/70 109/61 Pulse Oximetry 91 92 96 07/28/21 08:52 Temperature 96.9 F L Pulse Rate 103 H Respiratory Rate 21 H Blood Pressure 109/54 L Pulse Oximetry 95 Intake/Output Intake/Output: Intake & Output 07/25/21 07/26/21 07/27/21 07/28/21 23:59 23:59 23:59 23:59 Intake Total 530 0 Output Total 160 150 Balance 370 -150 Meds/Results Medications: Active Medications Generic Name Dose Route Start Last Admin Trade Name Freq PRN Reason Stop Dose Admin Hydrocodone Bitart/Acetaminophen 1 tab 07/27/21 06:05 07/28/21 10:34 [place]
--- NOTE | 2021-07-28 14:56 | PC.NURSE ---
On 07/28/21, the student, Martha Hampton [facility] student, provided care and completed [facility] documentation on this patient. I have reviewed the student's documentation and agree with the findings.
--- NOTE | 2021-07-28 21:17 | PC.NURSE ---
This patient, Mónica Blum, was transferred to [ [facility]] on 07/28/21 at 2105. Personal belongings sent with patient. Chest tube to water seal. Report given to [ Afia]. Appropriate documentation and medications sent with patient.
[2021-07-29] VITALS (9 sets, daily range): BP systolic 101–118; BP diastolic 55–67; PULSE 71–118; RESP 16–17; TEMP 36.6–36.7; O2SAT 90–95
[2021-07-29] MEDS: ALBUTEROL SULFATE (*SP) AEROSOL 1 PUFF 2 PUFF INHALATION ×5 (00:47→20:13)
[2021-07-29 05:51] LABS: Hematocrit 40.5 % (37.0-47.0); Hemoglobin 13.1 g/dL (12.0-15.0); Mean Corpuscular HGB Conc 32.3 g/dl (32-36); Mean Corpuscular Hemoglobin 31.1 pg (26-34); Mean Corpuscular Volume 96.2 fl (80-100); Mean Platelet Volume 10.4 fl (7.4-10.4); Platelet Count Result 290 k/mm3 (150-375); Red Blood Count 4.21 M/mm3 (4.2-5.4); Red Cell Distribution Width 14.6 % (11.5-14.5)
[2021-07-29 06:09] LABS: Anion Gap 9 mmol/L (8-16); Blood Urea Nitrogen 20 mg/dL (7-17); Calcium 8.4 mg/dL (8.4-10.2); Carbon Dioxide 22 mmol/L (22-30); Chloride 103 mmol/L (98-107); Estimated CRCL calculation 42 ml/min; Estimated Glomerular Filt Rate > 60; Glucose 111 mg/dL (65-110); Potassium 4.1 mmol/L (3.4-5.0); Sodium 134 mmol/L (137-145)
[2021-07-29] MEDS: ASPIRIN 325 MG TABLET PO (08:12)
[2021-07-29] MEDS: DOXYCYCLINE HYCLATE 100 MG TABLET PO ×2 (08:13→20:06)
--- NOTE | 2021-07-29 09:44 | ECG_ITS ---
Measurements Intervals [place] Rate: 125 P: IN: 0 QRS: 75 QRSD: 76 T: -43 QT: 302 QTc: 436 Interpretive Statements ATRIAL FIBRILLATION WITH RAPID VENTRICULAR RESPONSE LOW QRS VOLTAGE IN PRECORDIAL LEADS BORDERLINE ST-T WAVE ABNORMALITY- ANTEROLAT/INF LEADS BASELINE ARTIFACT- III, V1-V2, V4-V6 ABNORMAL ECG Electronically Signed On 07-29-2021 10:15:01 CDT by Stanton Mckeon D.O.
[2021-07-29] MEDS: METOPROLOL TARTRATE TAB 25 MG, METOPROLOL TARTRATE TAB 12.5 MG 37.5 MG PO (11:14)
--- NOTE | 2021-07-29 13:49 | PM.PNGS ---
Progress Note: A&P Assessment and Plan (1) Pneumothorax on right: Code(s): J93.9 - Pneumothorax, unspecified Status: Acute Assessment and Plan: s/p removal of R CT, will recheck CXR in a few hours Subjective Subjective Date/Time Seen: 07/29/21 13:49 pt seen and examined, much more alert today, denies SOB Review of Systems Review of Systems: All systems reviewed & are unremarkable except as noted in HPI and below Exam Const: General: cooperative, comfortable, no acute distress and ill appearing Orientation/consciousness: oriented to person Limitations: altered mental status Neck: Other: R neck c some SQ emphysema Chest: Other: R chest c mod SQ emphysema Resp: Effort & Inspection: normal respiratory effort Auscultation: diminished lung sounds Other: R CT C/D/I - on H2O seal, no leak, removed at bedside Cardio: Rate: tachycardic Rhythm: regular rhythm Objective Data Vital Signs Vital Signs: Vital Signs - 24 hr 07/28/21 17:17 07/28/21 20:09 07/28/21 20:33 Temperature 35.9 C L Pulse Rate 64 Respiratory Rate 20 Blood Pressure 98/46 L Pulse Oximetry 96 94 95 07/28/21 20:44 07/28/21 20:51 07/28/21 20:53 Temperature Pulse Rate 103 H 103 H Respiratory Rate Blood Pressure 121/50 L Pulse Oximetry 94 07/28/21 23:20 07/29/21 03:46 07/29/21 09:27 Temperature 37.1 C 36.7 C Pulse Rate 109 H 110 H 71 Respiratory Rate 17 17 Blood Pressure 98/58 L 110/66 118/55 L Pulse Oximetry 93 95 94 07/29/21 11:14 Temperature Pulse Rate 118 H Respiratory Rate Blood Pressure Pulse Oximetry Intake/Output Intake/Output: Intake & Output 07/26/21 07/27/21 07/28/21 07/29/21 23:59 23:59 23:59 23:59 Intake Total 530 290 150 Output Total 160 615 Balance 370 -325 150 Meds/Results Medications: Active Medications Generic Name Dose Route Start Last Admin Trade Name Freq PRN Reason Stop Dose Admin Acetaminophen 650 mg 07/28/21 14:35 Acetaminophen 325 Mg Tablet PO Q6H PRN Pain 1-3 or Fever Hydrocodone Bitart/Acetaminophen 1 tab 07/27/21 06:05 09/15/21 10:34 Hydrocodone/Acetaminophen (*Crx) 5-325 Mg Tablet PO 1 tab Q6H PRN Administration Pain Rated 4-6 Albuterol 2 puff 07/27/21 21:15 07/29/21 09:55 Albuterol Sulfate (*Sp) Aerosol 1 Puff INHALATION 2 puff Q4HRT DAYANARA Administration Aspirin 325 mg 07/27/21 08:00 07/29/21 08:12 Aspirin 325 Mg Tablet PO 325 mg DAILY@0800 DAYANARA Administration Doxycycline Hyclate 100 mg 07/27/21 21:00 07/29/21 08:13 Doxycycline Hyclate 100 Mg Tablet PO 100 mg Q12HR DAYANARA Administration Ceftriaxone Sodium/Dextrose 1 gm in 50 mls @ 100 mls/hr 07/27/21 14:40 07/29/21 08:46 Rocephin 1 Gm/D5w 50 Ml IVPB Infused QAM DAYANARA Infusion Metoprolol Tartrate 25 mg/ 37.5 mg 07/29/21 10:45 07/29/21 11:14 Metoprolol Tartrate 12.5 mg PO 37.5 mg Q12HR DAYANARA Administration Morphine Sulfate 4 mg 07/27/21 07:00 07/28/21 23:07 Morphine Sulfate (*Crx) 4 Mg/Ml Inj IV PUSH 4 mg Q3H PRN Administration Pain Rated 7-10 Polyethylene Glycol 17 gm 07/28/21 14:35 Polyethylene Glycol 3350 17 Gm Powd.Pack PO QAM PRN Constipation Radiology Results: ITS Impressions High Resolution CT 07/27/21 12:12 IMPRESSION: 1. Small right pneumothorax. Chest tube in position. Extensive subcutaneous emphysema. 2. Patchy right lower lobe atelectasis and pneumonia. Underlying cancer not excludable. Follow-up CT in 3 months recommended. 3. Moderate to severe emphysema. Chest X-Ray 07/29/21 12:03 IMPRESSION: 1. Small right pneumothorax. No definite change in position of the right-sided chest tube. 2. Widespread subcutaneous emphysema of the right hemithorax tracking into the right neck. 3. Right lower lobe opacities, consistent with atelectasis versus pneumonia. Labs Labs: Laboratory Results - last 24 hr 07/29/21 07/29/21 05:13 05:
--- NOTE | 2021-07-29 15:32 | PM.IMPN ---
Progress Note: A&P Assessment and Plan (1) Spontaneous pneumothorax: Code(s): J93.83 - Other pneumothorax Status: Acute Assessment and Plan: Pneumothorax improved after chest tube placement ER and this has been removed -back on o2, wean as tolerated -chest CT earlier in the stay shows atelectasis and pneumonia, continue ceftriaxone and doxycycline (QTC slightly prolonged). differential could be pulmonary hemorrhage -no signs of COVID at this time -Management per Surgical Service -PT and OT ordered (2) Atrial fibrillation with rapid ventricular response: Code(s): I48.91 - Unspecified atrial fibrillation Status: Acute Assessment and Plan: Patient has chronic atrial fibrillation and her heart rate waxes and wanes -She had a reported episode of bradycardia while she was SOB. This went right back up when she sat down and by the time an ekg was done she was back in RVR -spoke to cardiology briefly, recommended to place on tele and continue metoprolol tartrate. -on daily aspirin (3) Pneumonia: Code(s): J18.9 - Pneumonia, unspecified organism Status: Acute Assessment and Plan: Patient CT shows right lower lobe pneumonia and atelectasis. differential could be pulmonary hemorrhage -continue ceftriaxone and doxycycline (QTC slightly elevated) -no signs of sepsis (4) Impaired cognition: Code(s): R41.89 - Other symptoms and signs involving cognitive functions and awareness Status: Acute Assessment and Plan: Family states pt has a hx of repeating herself and some confusion - she had some confusion overnight, likely sundowning and hospital delirium -no official diagnosis of dementia per family but it is suspected -monitor (5) Acute respiratory failure with hypoxia: Code(s): J96.01 - Acute respiratory failure with hypoxia Status: Acute Assessment and Plan: As above -wean o2 Subjective Date/time seen: 07/29/21 15:32 Interval history: Pt is a 86-year-old female here for pneumothorax. patient was seen today and states she is doing well. The nursing staff stated that she was up and walking earlier and her oxygen saturations dropped as well as her heart rate. The patient does not remember this occurrence. A repeat chest x-ray was performed which did not show much change. The patient is now resting comfortably with no complaints. She specifically denies chest pain, heart fluttering, nausea, vomiting, fevers, chills or abdominal pain. Exam Narrative: General: Well developed well nourished patient in NAD HEENT: normocephalic Neck: supple Neuro: Alert and oriented to herself, location and president but not the year. She moves all her limbs spontaneously and does not appear to have any neurological deficits CV: regular rate and rhythm on exam today. subcutaneous crepitus noted on her chest and arms Resp: Chest tube removed. Bilateral clear breath sounds throughout Abd: Soft, non distended. No pain to palpation. Positive bowel sounds Extremities: No swelling, erythema, or pain to palpation. crepitus to the right arm Objective Data Vital Signs Vital Signs: Vital Signs - 24 hr 07/28/21 17:17 07/28/21 20:09 07/28/21 20:33 Temperature 96.7 F L Pulse Rate 64 Respiratory Rate 20 Blood Pressure 98/46 L Pulse Oximetry 96 94 95 07/28/21 20:44 07/28/21 20:51 07/28/21 20:53 Temperature Pulse Rate 103 H 103 H Respiratory Rate Blood Pressure 121/50 L Pulse Oximetry 94 07/28/21 23:20 07/29/21 03:46 07/29/21 09:27 Temperature 98.7 F 98.1 F Pulse Rate 109 H 110 H 71 Respiratory Rate 17 17 Blood Pressure 98/58 L 110/66 118/55 L Pulse Oximetry 93 95 94 07/29/21 11:14 07/29/21 12:00 Temperature Pulse Rate 118 H 108 H Respiratory Rate Blood Pressure Pulse Oximetry Intake/Output Intake/Output: Intake & Output 07/26/21 07/27/21 07/28/21 07/29/21 23:59 23:59 23:5
[2021-07-29] MEDS: polyethylene glycoL 3350 17 GM POWD.PACK PO (16:48)
[2021-07-29] MEDS: SENNOSIDES 8.6 MG TABLET PO (20:06)
[2021-07-29] MEDS: METOPROLOL TARTRATE 50 MG TAB PO (20:07)
[2021-07-30] VITALS (22 sets, daily range): BP systolic 101–118; BP diastolic 60–74; PULSE 51–132; RESP 16–18; TEMP 36.3–36.9; O2SAT 91–100
[2021-07-30] MEDS: ALBUTEROL SULFATE (*SP) AEROSOL 1 PUFF 2 PUFF INHALATION ×2 (01:17→05:17)
--- NOTE | 2021-07-30 01:20 | PC.NURSE ---
0100 INFORMED BY THREAD TWISTER THE PT HAD NOT URINATED ALL NIGHT. WAS INFORMED 07/29 ON TRANSFER THE PT HAS HAD DECREASED URINE OUTPUT SINCE STOLL WAS REMOVED. DAY SHIFT DID NOT MENTION IF THE PT HAD DECREASED URINE OUTPUT DURING THIER SHIFT. BLADDER SCANNED PT AND GOT 460. DR LAWTON DID A TELEPHONE ORDER TO STRAIGHT CATH PT. WHEN I TOLD THE PT I WAS GOING TO STRAIGHT CATH HER SHE SAID SHE WANTED TO TRY TO USE THE RESTROOM BEFORE. PT WAS ABLE TO URINATE BUT MISSED THE HAT SO I WAS UNABLE TO MEASURE. BLADDER SCANNED THE PT AFTER USING THE RESTROOM AND IT SHOWED 0. DID NOT STRAIGHT CATH PT. IT APPEARS THE PT DOES NOT LIKE TO GET UP BECAUSE SHE GETS SOB. WILL CONTINUE TO ENCOURAGE PT TO GET UP TO USE RESTROOM.
[2021-07-30] MEDS: MORPHINE SULFATE (*CRX) 2 MG/ML INJ IV PUSH (05:29)
[2021-07-30] MEDS: MORPHINE SULFATE (*CRX) 4 MG/ML INJ IV PUSH (06:35)
[2021-07-30 07:04] LABS: Basophils Percent Auto 0.3 % (0.2-1.2); Eosinophils Absolute Auto 0.2 K/mm3 (0-0.3); Eosinophils Percent Auto 1.2 % (0-4.4); Hematocrit 42.3 % (37.0-47.0); Hemoglobin 13.9 g/dL (12.0-15.0); Immature Granulocyte Absolute 0.07 K/mm3 (0.00-0.031); Immature Granulocyte Percent A 0.5 % (0-0.5); Lymphocytes Absolute Auto 1.23 K/mm3 (0.9-3.2); Lymphocytes Percent Auto 8.3 % (18.3-44.2); Mean Corpuscular HGB Conc 32.9 g/dl (32-36); Mean Corpuscular Hemoglobin 31.7 pg (26-34); Mean Corpuscular Volume 96.6 fl (80-100); Mean Platelet Volume 9.9 fl (7.4-10.4); Monocytes Absolute Auto 1.3 K/mm3 (0.1-0.6); Monocytes Percent Auto 8.8 % (2.6-8.5); Neutrophils Absolute Auto 12.1 K/mm3 (1.3-6.7); Neutrophils Percent Auto 80.9 % (45.5-73.1); Platelet Count Result 324 k/mm3 (150-375); Red Blood Count 4.38 M/mm3 (4.2-5.4); Red Cell Distribution Width 14.9 % (11.5-14.5); White Blood Count 14.9 K/mm3 (4.5-10.0)
--- NOTE | 2021-07-30 07:26 | PC.NURSE ---
0500 ENTERED PT ROOM AFTER NOTICING HR ON MONITOR JUMP INTO THE 150'S. PT STATED SHE WAS SOB. EARLIER IN THE NIGHT THE SECURITY ALARM TECHNICIAN AND I WALKED THE PT TO THE RESTROOM AFTER SHE WAS SOB AND NEVER RECOVERED. WE OBTAINED A SET OF VITALS AND THE HR WAS JUMPING AROUND AND O2 SAT WAS NOT GETTING ABOVE 88-89 ON 1L. PLACED PT ON 2L NO IMPROVEMENT. THEN 3L NO IMPROVEMENT ON O2 SAT. I CALLED DR LAWTON TO OBTAIN CONSENT FOR STAT CHEST XRAY I ALSO CALLED RESPIRATORY TO DO A PRN TREATMENT FOR THE PT. DR LAWTON AND RESPIRATORY ARRIVED ABOUT 5 MIN LATER. XRAY FOLLOWED SHORTLY AFTER TO DO A CHEST XRAY. THE CHEST XRAY SHOWED A RIGHT PNEUMOTHORAX AND DR LAWTON STATED THE CHEST TUBE NEEDED TO BE PLACED STAT. I CALLED THE EXCHANGE TO NOTIFY DR. TROTTER. HE RETURNED MY CALL SHORTLY AFTER AND SPOKE WITH MYSELF AND DR. LAWTON. HE STATED THAT HE WOULD BE IN TO PLACE THE CHEST TUBE. I ALSO CALLED COIL ASSEM[employer]ER PALMIR[employer] TO INFORM HER OF WHAT WAS GOING ON AND TO REQUEST THE EQUIPMENT FOR CHEST TUBE PLACEMENT. DR LAWTON VERBALLY ORDERED THE PT TO BE PLACED ON A NON REBREATHER MASK ON HIGH FLOW OXYGEN. PT O2 SATS FINALLY INCREASED GETTING UP TO 100. DR TROTTER ARRIVED AND PERFORMED THE PLACEMENT OF THE CHEST TUBE. PROCEDURE WAS COMPLETE AROUND 0700 AND ANOTHER CHEST XRAY WAS TAKEN TO CONFIRM PLACEMENT OF CHEST TUBE. PT COMPLAINS OF PAIN BUT IS NOW RESTING COMFORTABLY. 0740 SPOKE WITH PT FAMILY AND UPDATED THEM ON PT STATUS. ENCOURAGED DAUGHTER TO COME IN AND SIT WITH PT.
--- NOTE | 2021-07-30 08:11 | PM.PNGS ---
Progress Note: A&P Assessment and Plan (1) Pneumothorax on right: Code(s): J93.9 - Pneumothorax, unspecified Status: Acute Assessment and Plan: R chest tube replaced, will likely need transfer to thoracic surgery for thoracoscopy, cont CT to sxn Subjective Subjective Date/Time Seen: 07/30/21 08:11 pt seen and examined, events overnight noted. pt reports she is doing well this am, denies any further CP, SOB. Review of Systems Review of Systems: All systems reviewed & are unremarkable except as noted in HPI and below Exam Const: General: cooperative and no acute distress Orientation/consciousness: oriented to person Chest: Other: still c sq crepitus, R sided CT - small air leak Resp: Effort & Inspection: normal respiratory effort Auscultation: diminished lung sounds Cardio: Rate: tachycardic Rhythm: regular rhythm Objective Data Vital Signs Vital Signs: Vital Signs - 24 hr 07/29/21 09:27 07/29/21 11:14 07/29/21 12:00 Temperature Pulse Rate 71 118 H 108 H Respiratory Rate Blood Pressure 118/55 L Pulse Oximetry 94 07/29/21 16:00 07/29/21 19:47 07/29/21 20:00 Temperature 36.7 C 36.6 C Pulse Rate 113 H 98 109 H Respiratory Rate 16 16 16 Blood Pressure 115/57 L 101/67 Pulse Oximetry 95 90 91 07/29/21 20:07 07/29/21 20:22 07/30/21 00:00 Temperature Pulse Rate 98 108 H Respiratory Rate Blood Pressure Pulse Oximetry 91 07/30/21 01:29 07/30/21 03:30 07/30/21 04:00 Temperature 36.3 C L Pulse Rate 108 H 109 H 118 H Respiratory Rate 16 16 Blood Pressure 101/60 Pulse Oximetry 91 93 Intake/Output Intake/Output: Intake & Output 07/27/21 07/28/21 07/29/21 07/30/21 23:59 23:59 23:59 23:59 Intake Total 657 700 2011 50 Output Total 160 615 460 Balance 370 -325 1030 -410 Meds/Results Medications: Active Medications Generic Name Dose Route Start Last Admin Trade Name Freq PRN Reason Stop Dose Admin Acetaminophen 650 mg 07/28/21 14:35 Acetaminophen 325 Mg Tablet PO Q6H PRN Pain 1-3 or Fever Hydrocodone Bitart/Acetaminophen 1 tab 07/27/21 06:05 07/28/21 10:34 Hydrocodone/Acetaminophen (*Crx) 5-325 Mg Tablet PO 1 tab Q6H PRN Administration Pain Rated 4-6 Albuterol 5 mg 07/30/21 08:00 Albuterol Sulfate Neb 2.5 Mg/0.5 Ml Inh INHALATION Q4HRT DAYANARA Aspirin 325 mg 07/27/21 08:00 07/29/21 08:12 Aspirin 325 Mg Tablet PO 325 mg DAILY@0800 DAYANARA Administration Doxycycline Hyclate 100 mg 07/27/21 21:00 07/29/21 20:06 Doxycycline Hyclate 100 Mg Tablet PO 100 mg Q12HR DAYANARA Administration Ceftriaxone Sodium/Dextrose 1 gm in 50 mls @ 100 mls/hr 07/27/21 14:40 07/29/21 08:46 Rocephin 1 Gm/D5w 50 Ml IVPB Infused QAM DAYANARA Infusion Metoprolol Tartrate 50 mg 07/29/21 21:00 07/29/21 20:07 Metoprolol Tartrate 50 Mg Tab PO 50 mg Q12HR DAYANARA Administration Morphine Sulfate 4 mg 07/27/21 07:00 07/30/21 06:35 Morphine Sulfate (*Crx) 4 Mg/Ml Inj IV PUSH 4 mg Q3H PRN Administration Pain Rated 7-10 Polyethylene Glycol 17 gm 07/28/21 14:35 07/29/21 16:48 Polyethylene Glycol 3350 17 Gm Powd.Pack PO 17 gm QAM PRN Administration Constipation Senna 8.6 mg 07/29/21 21:00 07/29/21 20:06 Sennosides 8.6 Mg Tablet PO 8.6 mg HS DAYANARA Administration Radiology Results: ITS Impressions High Resolution CT 07/27/21 12:12 IMPRESSION: 1. Small right pneumothorax. Chest tube in position. Extensive subcutaneous emphysema. 2. Patchy right lower lobe atelectasis and pneumonia. Underlying cancer not excludable. Follow-up CT in 3 months recommended. 3. Moderate to severe emphysema. Chest X-Ray 07/30/21 06:55 IMPRESSION: 1. Decrease in size of a now small right apical pneumothorax post right chest tube placement. 2. Opacities and architectural distortion at the right lower lung zone which could represent atelectasis and/or pneumonia.
[2021-07-30] MEDS: ALBUTEROL SULFATE NEB 2.5 MG/0.5 ML INH 5 MG INHALATION ×5 (08:32→23:58)
--- NOTE | 2021-07-30 08:54 | P.OP_ITS ---
Procedure Note - Detailed Date of Procedure 07/30/21 Pre-op Diagnosis Recurrent Right Pneumothorax Post-op Diagnosis same Procedure Performed Right Chest tube Placement (tube thoracostomy) Surgeon Carlos Stone MD Animal Science Professor Floor nurses Anesthesia other (Local with % Xylocaine) Indications Patient had a chest tube removed yesterday which had been partially dislodged but last will still in the chest days prior. Apparently patient was helped up to the bathroom early this morning and then began developing shortness of breath and decreased oxygen saturation when checked. The hospitalist was called to check patient because of increase labored breathing and drop in oxygen satura tion. Follow-up chest x-ray revealed a fairly large pneumothorax on the right. Due to the urgency of the situation patient apparently had not signed a permit for placement of the chest tube this help her will be done after the fact. Findings normal chest wall anatomy on the side of tube placement. Description of Procedure Standard full size tube thoracostomy: after instructing the patient of the technique I carefully prepped the entire left chest wall with the patient lying slightly head up and supine. The arm on the side of chest tube placement was up above the head. I also had the patient's nurse stand on her left side and retract her right breast medially as I placed the tube. Following this using sterile technique we carefully prepped the lateral right chest wall in the axillary area and this was draped off sterilely. Time-out was performed with the team helping me. All equipment was available. First I carefully removed all the old dressing from the previous chest tube site. Upon doing this it was noted that the Xeroform gauze was not specifically right on the previous incision and that the tape at the upper end of the completely sealed dressing was loose. The old dressing was carefully completely removed. I then prepped the area with Betadine. Following this local anesthetic was infiltrated over approximately the 6th rib and in the old incision from the previous chest tube was made larger by extending it posteriorly using a 15 blade knife and I then tunneled up over the 5th rib and then using a hemostat penetrated the intercostal space and the parietal pleura. I believe since I could put my finger and I did feel the space between the ribs were the old tube had been in and I simply spread this more. The hemostat was spread and a gush of air was noted. A Peon was then inserted and spread more. Following this the 36 Khmer size chest tube was carefully inserted after placing a finger into the chest cavity and sweeping it around the inside of the nearby chest cavity. The chest tube was inserted posteriorly and cephalad. It was inserted into about the 10 cm kody and then sutured into place with a U shape stitch using 0 silk which was tied with just 1 throw and then wrapped around the tube and then tied with 3 knots. Vaseline gauze was applied around the tube as dressing followed by a 3 x 3 split dressing and then 4 pieces of nylon tape that were cut with 3 arms using the center arm of each piece of tape to wrap around the tube to hold it in place. The tube was then connected to Pleur-Evac and the Pleur-Evac to 20 cm of suction. The patient tolerated the procedure well. Implants A 36 Khmer chest tube Estimated Blood Loss 2 Drains Yes (one size 36 Fr. chest tube) Packing No Pathology none sent Complications No immediate complications Condition stable Disposition floor
[2021-07-30] MEDS: ASPIRIN 325 MG TABLET PO (08:59)
[2021-07-30] MEDS: DOXYCYCLINE HYCLATE 100 MG TABLET PO ×2 (09:00→20:05)
[2021-07-30] MEDS: METOPROLOL TARTRATE 50 MG TAB PO ×2 (09:01→20:06)
[2021-07-30] MEDS: ACETAMINOPHEN 325 MG TABLET 650 MG PO (10:24)
--- NOTE | 2021-07-30 10:30 | PM.IMPN ---
Progress Note: A&P Assessment and Plan (1) Spontaneous pneumothorax: Code(s): J93.83 - Other pneumothorax Status: Acute Assessment and Plan: Spontaneous pneumothorax has reoccurred 1 day after taking the chest tube out. Chest tube is back in -back on o2, wean as tolerated -chest x-ray shows improvement status post tube insertion -surgery may transfer to outside hospital, will defer that decision to them. -chest CT earlier in the stay shows atelectasis and pneumonia, continue ceftriaxone and doxycycline (QTC slightly prolonged). differential could be pulmonary hemorrhage -no signs of COVID at this time -Management per Surgical Service (2) Atrial fibrillation with rapid ventricular response: Code(s): I48.91 - Unspecified atrial fibrillation Status: Acute Assessment and Plan: Patient has chronic atrial fibrillation and her heart rate waxes and wanes -She had a reported episode of bradycardia 07/29/21 while she was SOB. This went right back up when she sat down and by the time an ekg was done she was back in RVR -spoke to cardiology briefly, recommended to place on tele and continue metoprolol tartrate increased from 37.5 to 50mg. -on daily aspirin (3) Pneumonia: Code(s): J18.9 - Pneumonia, unspecified organism Status: Acute Assessment and Plan: Patient CT shows right lower lobe pneumonia and atelectasis. differential could be pulmonary hemorrhage -continue ceftriaxone and doxycycline (QTC slightly elevated) -no signs of sepsis (4) Impaired cognition: Code(s): R41.89 - Other symptoms and signs involving cognitive functions and awareness Status: Acute Assessment and Plan: Family states pt has a hx of repeating herself and some confusion - she had some confusion overnight, likely sundowning and hospital delirium -no official diagnosis of dementia per family but it is suspected -monitor (5) Acute respiratory failure with hypoxia: Code(s): J96.01 - Acute respiratory failure with hypoxia Status: Acute Assessment and Plan: As above -wean o2 Subjective Date/time seen: 07/30/21 10:30 Interval history: Pt is a 86-year-old female here for pneumothorax. Patient was seen today and states she is in a lot of pain. I asked her she wants any pain medication and she states that she does not like taking pain pills. I expressed the importance of pain control if she is miserable she should at least try the Tylenol in that it is safe. She has agreed to the Tylenol at this time. She says she does not feel short of breath but she is on oxygen. She has no chest pain but she does have right rib pain from the chest tube insertion. Exam Narrative: General: Well developed well nourished patient in NAD HEENT: normocephalic Neck: supple Neuro: Alert but was too tired and in pain to answer my orientation questions. She did tell me her name. She moves all her limbs spontaneously and does not appear to have any neurological deficits CV: Irregularly irregular with a normal rate on exam. Subcutaneous crepitus noted on her chest and arms Resp: Chest tube in place. Bilateral breath sounds throughout Abd: Soft, non distended. No pain to palpation. Positive bowel sounds Extremities: No swelling, erythema, or pain to palpation. crepitus to the right arm Objective Data Vital Signs Vital Signs: Vital Signs - 24 hr 07/29/21 11:14 07/29/21 12:00 07/29/21 16:00 Temperature 98.1 F Pulse Rate 118 H 108 H 113 H Respiratory Rate 16 Blood Pressure 115/57 L Pulse Oximetry 95 07/29/21 19:47 07/29/21 20:00 07/29/21 20:07 Temperature 97.9 F Pulse Rate 98 109 H 98 Respiratory Rate 16 16 Blood Pressure 101/67 Pulse Oximetry 90 91 07/29/21 20:22 07/30/21 00:00 07/30/21 01:29 Temperature Pulse Rate 108 H 108 H Respiratory Rate 16 Blood Pressure Pulse Oximetry 91 91 07/30/21 03:30 07/30/21 04:0
--- NOTE | 2021-07-30 16:55 | PCOTNOTE ---
Per [facility] report, Hospitalist mentioned possibly wanting to put pt. on hold for therapy, due to chest tube precautions. Called Dr. Moss's office to follow up on surgeon's orders. Awaiting to here back regarding continuation of therapy.
--- NOTE | 2021-07-30 18:41 | PC.NURSE ---
pt doing well, sitting up in chair knitting, is confused at times, other times is answering appropriately, daughter states that is baseline, pt remains on high flow cannula due to episode overnight
[2021-07-30] MEDS: SENNOSIDES 8.6 MG TABLET PO (20:05)
[2021-07-31] VITALS (11 sets, daily range): BP systolic 108; BP diastolic 62; PULSE 76–119; RESP 16–18; TEMP 37; O2SAT 95–99
[2021-07-31] MEDS: ALBUTEROL SULFATE NEB 2.5 MG/0.5 ML INH 5 MG INHALATION ×3 (05:08→13:01)
[2021-07-31 06:18] LABS: Basophils Absolute Auto 0.1 K/mm3 (0.0-0.1); Basophils Percent Auto 0.5 % (0.2-1.2); Eosinophils Absolute Auto 0.6 K/mm3 (0-0.3); Hemoglobin 12.9 g/dL (12.0-15.0); Immature Granulocyte Absolute 0.06 K/mm3 (0.00-0.031); Immature Granulocyte Percent A 0.5 % (0-0.5); Lymphocytes Absolute Auto 1.43 K/mm3 (0.9-3.2); Lymphocytes Percent Auto 12.1 % (18.3-44.2); Mean Corpuscular HGB Conc 32.3 g/dl (32-36); Mean Corpuscular Hemoglobin 31.3 pg (26-34); Mean Corpuscular Volume 97.1 fl (80-100); Mean Platelet Volume 10.1 fl (7.4-10.4); Monocytes Absolute Auto 1.1 K/mm3 (0.1-0.6); Monocytes Percent Auto 9.5 % (2.6-8.5); Neutrophils Absolute Auto 8.6 K/mm3 (1.3-6.7); Neutrophils Percent Auto 72.4 % (45.5-73.1); Platelet Count Result 326 k/mm3 (150-375); Red Blood Count 4.12 M/mm3 (4.2-5.4); White Blood Count 11.9 K/mm3 (4.5-10.0)
[2021-07-31 06:28] LABS: Alanine Aminotransferase 15 U/L (4-35); Alkaline Phosphatase 96 U/L (38-126); Anion Gap 6 mmol/L (8-16); Aspartate Amino Transferase 30 U/L (14-36); Bilirubin,Total 0.9 mg/dL (0.2-1.3); Blood Urea Nitrogen 24 mg/dL (7-17); Calcium 8.7 mg/dL (8.4-10.2); Carbon Dioxide 26 mmol/L (22-30); Chloride 102 mmol/L (98-107); Estimated CRCL calculation 42 ml/min; Estimated Glomerular Filt Rate > 60; Glucose 112 mg/dL (65-110); Potassium 3.7 mmol/L (3.4-5.0); Sodium 134 mmol/L (137-145)
--- NOTE | 2021-07-31 08:26 | PCOTNOTE ---
Checked in with nurse regarding any pt. order status change per surgeon's office, currently still unknown, will continue follow up until resolved.
[2021-07-31] MEDS: ASPIRIN 325 MG TABLET PO (08:54)
[2021-07-31] MEDS: METOPROLOL TARTRATE 50 MG TAB PO (08:54)
[2021-07-31] MEDS: DOXYCYCLINE HYCLATE 100 MG TABLET PO (08:54)
--- NOTE | 2021-07-31 11:03 | PM.PNGS ---
Progress Note: A&P Assessment and Plan (1) Pneumothorax on right: Code(s): J93.9 - Pneumothorax, unspecified Status: Acute Assessment and Plan: still c persistent air leak and sl worsening of PTX on CXR, clinically stable, d/w hospitalist and will need transfer to thoracic surgery Subjective Subjective Date/Time Seen: 07/31/21 11:03 pt denies any acute issues, reports no further SOB although still requiring oxygen, pt is depressed Review of Systems Review of Systems: All systems reviewed & are unremarkable except as noted in HPI and below Exam Const: General: cooperative, no acute distress and ill appearing Orientation/consciousness: oriented to person and oriented to place Chest: Other: R CT - C/D/I, air leak Resp: Effort & Inspection: normal respiratory effort and able to speak in complete sentences Auscultation: diminished lung sounds Cardio: Rate: tachycardic Rhythm: regular rhythm Objective Data Vital Signs Vital Signs: Vital Signs - 24 hr 07/30/21 11:40 07/30/21 12:00 07/30/21 12:50 Temperature Pulse Rate 111 H 70 Respiratory Rate 18 Blood Pressure Pulse Oximetry 94 07/30/21 12:59 07/30/21 16:00 07/30/21 16:28 Temperature 36.9 C Pulse Rate 75 107 H 100 Respiratory Rate 18 16 18 Blood Pressure 112/70 Pulse Oximetry 100 07/30/21 16:39 07/30/21 19:37 07/30/21 19:50 Temperature Pulse Rate 119 H 91 117 H Respiratory Rate 18 18 18 Blood Pressure Pulse Oximetry 92 92 07/30/21 20:00 07/30/21 20:06 07/30/21 21:28 Temperature 36.4 C L Pulse Rate 125 H 132 H 51 L Respiratory Rate 16 Blood Pressure 118/63 Pulse Oximetry 91 07/31/21 00:00 07/31/21 00:10 07/31/21 04:00 Temperature Pulse Rate 105 H 90 119 H Respiratory Rate 18 18 Blood Pressure Pulse Oximetry 96 96 07/31/21 05:09 07/31/21 06:32 07/31/21 09:57 Temperature 37.0 C Pulse Rate 76 98 82 Respiratory Rate 16 16 16 Blood Pressure 108/62 Pulse Oximetry 99 07/31/21 09:58 Temperature Pulse Rate Respiratory Rate Blood Pressure Pulse Oximetry 95 Intake/Output Intake/Output: Intake & Output 09/15/21 09/16/21 09/17/21 09/18/21 23:59 23:59 23:59 23:59 Intake Total 290 1030 980 250 Output Total 615 460 Balance -325 1030 520 250 Meds/Results Medications: Active Medications Generic Name Dose Route Start Last Admin Trade Name Freq PRN Reason Stop Dose Admin Acetaminophen 650 mg 07/28/21 14:35 07/30/21 10:24 Acetaminophen 325 Mg Tablet PO 650 mg Q6H PRN Administration Pain 1-3 or Fever Hydrocodone Bitart/Acetaminophen 1 tab 07/27/21 06:05 07/28/21 10:34 Hydrocodone/Acetaminophen (*Crx) 5-325 Mg Tablet PO 1 tab Q6H PRN Administration Pain Rated 4-6 Albuterol 5 mg 07/30/21 08:00 07/31/21 09:56 Albuterol Sulfate Neb 2.5 Mg/0.5 Ml Inh INHALATION 5 mg Q4HRT DAYANARA Administration Aspirin 325 mg 07/27/21 08:00 07/31/21 08:54 Aspirin 325 Mg Tablet PO 325 mg DAILY@0800 DAYANARA Administration Doxycycline Hyclate 100 mg 07/27/21 21:00 07/31/21 08:54 Doxycycline Hyclate 100 Mg Tablet PO 100 mg Q12HR DAYANARA Administration Ceftriaxone Sodium/Dextrose 1 gm in 50 mls @ 100 mls/hr 07/27/21 14:40 07/31/21 08:54 Rocephin 1 Gm/D5w 50 Ml IVPB 100 mls/hr QAM DAYANARA Administration Metoprolol Tartrate 50 mg 07/29/21 21:00 07/31/21 08:54 Metoprolol Tartrate 50 Mg Tab PO 50 mg Q12HR DAYANARA Administration Morphine Sulfate 4 mg 07/27/21 07:00 07/30/21 06:35 Morphine Sulfate (*Crx) 4 Mg/Ml Inj IV PUSH 4 mg Q3H PRN Administration Pain Rated 7-10 Polyethylene Glycol 17 gm 07/28/21 14:35 07/29/21 16:48 Polyethylene Glycol 3350 17 Gm Powd.Pack PO 17 gm QAM PRN Administration Constipation Senna 8.6 mg 07/29/21 21:00 07/30/21 20:05 Sennosides 8.6 Mg Tablet PO 8.6 mg HS DAYANARA Administration Radiology Results: ITS Impressions High Resolution C
--- NOTE | 2021-07-31 11:25 | PCPTNOTE ---
Per OT's notes wasn't sure if patient can be seen for therapy today. Checked with nursing, per nursing patient is being transferred and to just hold therapy for now.
--- NOTE | 2021-07-31 11:45 | PM.IMPN ---
Subjective Date/time seen: 07/31/21 11:45 Objective Data Vital Signs Vital Signs: Vital Signs - 24 hr 07/30/21 12:00 07/30/21 12:50 07/30/21 12:59 Temperature Pulse Rate 111 H 70 75 Respiratory Rate 18 18 Blood Pressure Pulse Oximetry 07/30/21 16:00 07/30/21 16:28 07/30/21 16:39 Temperature 98.5 F Pulse Rate 107 H 100 119 H Respiratory Rate 16 18 18 Blood Pressure 112/70 Pulse Oximetry 100 07/30/21 19:37 07/30/21 19:50 07/30/21 20:00 Temperature Pulse Rate 91 117 H 125 H Respiratory Rate 18 18 Blood Pressure Pulse Oximetry 92 92 07/30/21 20:06 07/30/21 21:28 07/31/21 00:00 Temperature 97.5 F L Pulse Rate 132 H 51 L 105 H Respiratory Rate 16 18 Blood Pressure 118/63 Pulse Oximetry 91 96 07/31/21 00:10 07/31/21 04:00 07/31/21 05:09 Temperature Pulse Rate 90 119 H 76 Respiratory Rate 18 16 Blood Pressure Pulse Oximetry 96 07/31/21 06:32 07/31/21 08:00 07/31/21 09:57 Temperature 98.6 F Pulse Rate 98 110 H 82 Respiratory Rate 16 16 Blood Pressure 108/62 Pulse Oximetry 99 07/31/21 09:58 Temperature Pulse Rate Respiratory Rate Blood Pressure Pulse Oximetry 95 Intake/Output Intake/Output: Intake & Output 07/28/21 07/29/21 07/30/21 07/31/21 23:59 23:59 23:59 23:59 Intake Total 290 1030 980 370 Output Total 615 460 Balance -325 1030 520 370 Meds/Results Medications: Active Medications Generic Name Dose Route Start Last Admin Trade Name Freq PRN Reason Stop Dose Admin Acetaminophen 650 mg 07/28/21 14:35 07/30/21 10:24 Acetaminophen 325 Mg Tablet PO 650 mg Q6H PRN Administration Pain 1-3 or Fever Hydrocodone Bitart/Acetaminophen 1 tab 07/27/21 06:05 07/28/21 10:34 Hydrocodone/Acetaminophen (*Crx) 5-325 Mg Tablet PO 1 tab Q6H PRN Administration Pain Rated 4-6 Albuterol 5 mg 07/30/21 08:00 07/31/21 09:56 Albuterol Sulfate Neb 2.5 Mg/0.5 Ml Inh INHALATION 5 mg Q4HRT DAYANARA Administration Aspirin 325 mg 07/27/21 08:00 07/31/21 08:54 Aspirin 325 Mg Tablet PO 325 mg DAILY@0800 DAYANARA Administration Doxycycline Hyclate 100 mg 07/27/21 21:00 07/31/21 08:54 Doxycycline Hyclate 100 Mg Tablet PO 100 mg Q12HR DAYANARA Administration Ceftriaxone Sodium/Dextrose 1 gm in 50 mls @ 100 mls/hr 07/27/21 14:40 07/31/21 08:54 Rocephin 1 Gm/D5w 50 Ml IVPB 100 mls/hr QAM DAYANARA Administration Metoprolol Tartrate 50 mg 07/29/21 21:00 07/31/21 08:54 Metoprolol Tartrate 50 Mg Tab PO 50 mg Q12HR DAYANARA Administration Morphine Sulfate 4 mg 07/27/21 07:00 07/30/21 06:35 Morphine Sulfate (*Crx) 4 Mg/Ml Inj IV PUSH 4 mg Q3H PRN Administration Pain Rated 7-10 Polyethylene Glycol 17 gm 07/28/21 14:35 07/29/21 16:48 Polyethylene Glycol 3350 17 Gm Powd.Pack PO 17 gm QAM PRN Administration Constipation Senna 8.6 mg 07/29/21 21:00 07/30/21 20:05 Sennosides 8.6 Mg Tablet PO 8.6 mg HS DAYANARA Administration Radiology Results: ITS Impressions High Resolution CT 07/27/21 12:12 IMPRESSION: 1. Small right pneumothorax. Chest tube in position. Extensive subcutaneous emphysema. 2. Patchy right lower lobe atelectasis and pneumonia. Underlying cancer not excludable. Follow-up CT in 3 months recommended. 3. Moderate to severe emphysema. Chest X-Ray 07/31/21 09:09 IMPRESSION: 1. Small right pneumothorax with slight worsening. Labs Labs: Laboratory Results - last 24 hr 07/31/21 07/31/21 05:10 05:10 WBC 11.9 H RBC 4.12 L Hgb 12.9 Hct 40.0 MCV 97.1 MCH 31.3 MCHC 32.3 RDW 15.0 H Plt Count 326 MPV 10.1 Immature Gran % (Auto) 0.5 Neut % (Auto) 72.4 Lymph % (Auto) 12.1 L Prentiss % (Auto) 9.5 H Eos % (Auto) 5.0 H Baso % (Auto) 0.5 Lymph # (Auto) 1.43 Prentiss # (Auto) 1.1 H Eos # (Auto) 0.6 H Baso # (Auto) 0.1 Abs Immat Gran (auto) 0.06 H Absolute Neuts (auto) 8.6
--- NOTE | 2021-07-31 12:17 | PM.TDS ---
Transfer Discharge Sum: Prov Provider Date of admission: 07/27/21 03:27 Primary care physician: Florentino Hollins MD Admitting clinician: Denis Savage MD Consults: 07/27/21 03:29 Consult to Physician Routine Comment: Consulting Provider: Kayla James Reason for consultation: medical management Has provider been notified: Yes DS: Admitting Diagnosis Discharge Date July 31, 2021 Admitting Diagnosis Spontaneous pneumothorax DS: Discharge Diagnosis Discharge Diagnosis (1) Spontaneous pneumothorax: Code(s): J93.83 - Other pneumothorax Status: Acute Assessment and Plan: Spontaneous pneumothorax has reoccurred 1 day after taking the chest tube out. Chest tube is back in -back on o2, wean as tolerated -chest x-ray shows improvement status post tube insertion -surgery may transfer to outside hospital, will defer that decision to them. -chest CT earlier in the stay shows atelectasis vs pneumonia, continue ceftriaxone and doxycycline (QTC slightly prolonged) DAY 5 -no signs of COVID at this time -due to spontaneous pneumothorax with continued air leak likely due to underlying chronic obstructive pulmonary disease she was transferred to [facility] for evaluation and management with CT surgery (2) Atrial fibrillation with rapid ventricular response: Code(s): I48.91 - Unspecified atrial fibrillation Status: Acute Assessment and Plan: Patient has chronic atrial fibrillation and her heart rate waxes and wanes -She had a reported episode of bradycardia 07/29/21 while she was SOB. This went right back up when she sat down and by the time an ekg was done she was back in RVR -continued metoprolol tartrate increased from 37.5 to 50mg. -on daily aspirin (3) Impaired cognition: Code(s): R41.89 - Other symptoms and signs involving cognitive functions and awareness Status: Acute Assessment and Plan: Family states pt has a hx of repeating herself and some confusion - she had some confusion overnight, likely sundowning and hospital delirium -no official diagnosis of dementia per family but it is suspected -monitor (4) Acute respiratory failure with hypoxia: Code(s): J96.01 - Acute respiratory failure with hypoxia Status: Acute Assessment and Plan: As above -wean o2 Transfer Discharge Sum: Med Medications Active and Home Medications: Home Medications aspirin 325 mg PO DAILY #30 tablet 11/08/19 [Rx Confirmed 07/27/21] metoprolol tartrate 37.5 mg PO Q12HR #60 tablet 11/08/19 [Rx Confirmed 07/27/21] Active Medications Acetaminophen (Acetaminophen 325 Mg Tablet) 650 mg PO Q6H PRN PRN Reason: Pain 1-3 or Fever Last Admin: 07/30/21 10:24 Dose: 650 mg Documented by: Hydrocodone Bitart/Acetaminophen (Hydrocodone/Acetaminophen (*Crx) 5-325 Mg Tablet) 1 tab PO Q6H PRN PRN Reason: Pain Rated 4-6 Last Admin: 07/28/21 10:34 Dose: 1 tab Documented by: Albuterol (Albuterol Sulfate Neb 2.5 Mg/0.5 Ml Inh) 5 mg INHALATION Q4HRT [facility] Last Admin: 07/31/21 09:56 Dose: 5 mg Documented by: Aspirin (Aspirin 325 Mg Tablet) 325 mg PO DAILY@0800 [facility] Last Admin: 07/31/21 08:54 Dose: 325 mg Documented by: Doxycycline Hyclate (Doxycycline Hyclate 100 Mg Tablet) 100 mg PO Q12HR [facility] Last Admin: 07/31/21 08:54 Dose: 100 mg Documented by: Ceftriaxone Sodium/Dextrose (Rocephin 1 Gm/D5w 50 Ml) 1 gm in 50 mls @ 100 mls/hr IVPB QAM [facility] Last Admin: 07/31/21 08:54 Dose: 100 mls/hr Documented by: Metoprolol Tartrate (Metoprolol Tartrate 50 Mg Tab) 50 mg PO Q12HR [facility] Last Admin: 07/31/21 08:54 Dose: 50 mg Documented by: Morphine Sulfate (Morphine Sulfate (*Crx) 4 Mg/Ml Inj) 4 mg IV PUSH Q3H PRN PRN Reason: Pain Rated 7-10 Last Admin: 07/30/21 06:35 Dose: 4 mg Documented by: Polyethylene Glycol (Polyethylene Glycol 3350 17 Gm Powd.Pack) 17 gm PO QAM PRN PRN Reason: Constipation Last Admin:
== END 2021-07-31 14:46 | disposition short-term general hospital (02) | DRG 199 ==
LOC: ANHED 01:33 → ANHIMU 07:12 → ANH2MED 08-03 16:45 → ANHIMU 08-03 16:45
PROVIDERS: Physician Assistant; Admitting Provider Surgery; Emergency Provider Emergency Medicine; PCP Family Medicine Adolescent Medicine; Visit Provider Internal Medicine
DX: J93.83 Other pneumothorax (principal); J18.9 Pneumonia, unspecified organism; J96.01 Acute respiratory failure with hypoxia; I48.20 Chronic atrial fibrillation, unspecified; J93.82 Other air leak; T81.82XA Emphysema (subcutaneous) resulting from a procedure, initial encounter; R41.89 Other symptoms and signs involving cognitive functions and awareness; J44.9 Chronic obstructive pulmonary disease, unspecified; Z66 Do not resuscitate; Z88.0 Allergy status to penicillin; Z79.82 Long term (current) use of aspirin; Z79.899 Other long term (current) drug therapy; Z98.42 Cataract extraction status, left eye; Z98.41 Cataract extraction status, right eye; Z96.1 Presence of intraocular lens
CPT/HCPCS: 32551; 36415; 71045; 71046; 71250; 80048; 80053; 83036; 85025; 85027; 85610; 85730; 93005; 94640; 97110; 97161; 97165; 97535; 99285; A9270; C1729; J0696; J2060; J2270

== ENCOUNTER → 2021-08-13 14:50 | Outpatient (CLI) | payer MEDICARE, SELFPAY ==
--- NOTE | ~2021-08-13 | XR_ITS ---
XR chest 2V DATE: 08/13/2021 15:17 INDICATION: Right pneumothorax follow-up TECHNIQUE: 2 views COMPARISON: 07/31/2021 portable AP chest FINDINGS: The previous extensive right subcutaneous emphysema of 07/31/2021 is nearly completely resol jose. No residual pneumothorax is evident. There is emphysema. There is chronic right mid to lower lung discoid scarring. There is mild infiltra te or atelectasis at the right lung base and minimal residual infiltrate in the right upper lung. The left lung appears clear. Mild blunting of the costophrenic angles; small pleural effusions are not excluded. There is aortic ectasia and tortuosity. Borderline heart size. Diffuse osteopenia. There is prominent anterior wedge compression fracture deformity of approximately L1, new since 11/04/2019, but present on 07/26/2021. IMPRESSION: Resolution of right pneumothorax; minimal residual right chest wall subcutaneous emphysem a Mild right upper lobe and basilar infiltrate or atelectasis; cannot exclude small pleural effusions Reviewed, dictated and finalized at location B. IMPRESSION: Resolution of right pneumothorax; minimal residual right chest wall subcutaneous emphysema Mild right upper lobe and basilar infiltrate or atelectasis; cannot exclude sma ll pleural effusions
== END ==
PROVIDERS: PCP Family Medicine Adolescent Medicine; Visit Provider Physician Assistant
DX: J93.9 Pneumothorax, unspecified (principal); R91.8 Other nonspecific abnormal finding of lung field
CPT/HCPCS: 71046

== ENCOUNTER 2021-10-29 14:02 | Inpatient (IN) | payer MEDICARE, SELFPAY ==
[2021-10-29] VITALS (7 sets, daily range): BP systolic 107–137; BP diastolic 68–87; PULSE 88–109; RESP 14–21; TEMP 36.8; O2SAT 87–95
--- NOTE | ~2021-10-29 | XR_ITS ---
XR chest 1V portable DATE: 10/29/2021 22:30 INDICATION: Dyspnea. History of atrial fibrillation, COPD TECHNIQUE: Portable upright AP chest on 10/29/2021 at 2219 COMPARISON: 08/13/2021 2 view chest. FINDINGS: Cardiomegaly. There are small pleural effusions, right greater than left. There is pulmonary vascular congestion. There are bilateral pulmonary infiltrates involving particularly the left upper lobe and right lower lobe. Differential diagnosis includes bilateral pneumonia and/or pulmonary edema associated with trell estive heart failure. Diffuse osteopenia. There is dextroscoliosis of the thoracic spine. IMPRESSION: Cardiomegaly, pulmonary vascular congestion, mild bilateral pleural effusions, consistent with congestive heart failure Bilateral infiltrates involving particularly left upper and right lower lobes; differential diagnosis includes bilateral pneumonia and/or pulmonary edema Osteopenia Reviewed, dictated and finalized at location A. DEVELOPER ANALYST
--- NOTE | ~2021-10-29 | CT_ITS ---
EXAMINATION: CTA chest PE protocol DATE: 10/30/2021 00:27 INDICATION: Dyspnea. TECHNIQUE: Computed tomography angiography (CTA) of the chest was performed with 100 mL Omnipaque-350 intravenous contrast timed to evaluate the pulmonary arteries. Coronal maximum intensity projection 3D-reconstructions were created by the technologist. Automated exposure control and iterative reconst ruction technique were employed. The dose-length product was 313.39 mGy-cm. COMPARISON: Chest CT 07/27/2021 FINDINGS: There is severe emphysema with a lower lung predominance. There is smooth septal thickening in the lungs with hazy groundglass opacities, consistent with pulmonary edema. There are airspace op acities and volume loss involving left upper lobe and right lower lobe. There are small pleural effus ions. There is biatrial enlargement of the heart. No pericardial effusion. The central pulmonary davion yessenia are enlarged, consistent with pulmonary arterial hypertension. There is a chronic compression fr acture of T7. There is a chronic burst fracture of L1. There is moderate thoracic spondylosis. IMPRESSION: 1. No pulmonary embolus. 2. Moderate pulmonary edema. 3. Pneumonia involving left upper lobe and atelectasis versus pneumonia involving right lower lobe. 4. Severe emphysema. Reviewed, dictated and finalized at location A. S MGR IMPRESSION: 1. No pulmonary embolus. 2. Moderate pulmonary edema. 3. Pneumonia involving left upper lobe and atelectasis versus pneumonia involvi ng right lower lobe. 4. Severe emphysema.
--- NOTE | 2021-10-29 19:56 | PC.NURSE ---
pt. family called asking for update. RN informed pt. family pt. is stable.
--- NOTE | 2021-10-29 21:13 | PC.NURSE ---
Pt walked back to a room and became very SOB. Pt was labored and 87% on RA> Pt placed on 2L of O2. Pt seems slightly confused. Knows name and where she is but thought it was June and doesn't know the president.
--- NOTE | 2021-10-29 21:19 | ECG_ITS ---
Measurements Intervals [place] Rate: 96 P: MT: 0 QRS: 68 QRSD: 75 T: 0 QT: 373 QTc: 472 Interpretive Statements ATRIAL FIBRILLATION BORDERLINE ST-T WAVE ABNORMALITY- DIFFUSE LEADS BASELINE ARTIFACT- I, II, III, AVR, AVF, V3-V6 ABNORMAL ECG Electronically Signed On 10-30-2021 6:47:07 RESPIRATORY THERAPIST ASSISTANT by Stanton Mckeon D.O.
--- NOTE | 2021-10-29 21:31 | ED.GENADULT ---
HPI - General Adult General Chief complaint: Upper Respiratory Infection Stated complaint: SOB- Since July Time Seen by Provider: 10/29/21 21:02 Limitations: altered mental status History of Present Illness HPI narrative: Patient 86-year-old female that presents the emergency department with chief complaint of I do not know. Patient reports she was dropped off at the hospital and is unsure why she is here per triage report the patient had no complaint but family had reported that she was short of breath. This was reported to been going on since July and the patient was found to have a room air saturation of 87%. The patient is apparently not on home oxygen and per records has history of A. fib and is on an anticoagulant. The patient currently has no complaint but history is limited due to altered mental status. Related Data Home Medications Medication Instructions Recorded Confirmed escitalopram oxalate 10 mg PO DAILY 10/29/21 rivaroxaban [Xarelto] 20 mg PO DAILY 10/29/21 Allergies Allergy/AdvReac Type Severity Reaction Status Date / Time Penicillins Allergy Unknown Unknown Verified 10/29/21 21:10 Review of Systems Review of Systems: A 10 system review of systems was completed on the patient and is negative except for what is stated in the HPI. Nursing and ancillary documentation was reviewed. [facility] Past Medical History Medical History Afib Anemia Back pain Depression Left elbow fracture Leg fracture, right Shingles UTI (urinary tract infection) Surgical History Surgical History History of appendectomy History of tonsillectomy Status post cataract extraction of both eyes with insertion of intraocular lens Family History Family History Father Acute myocardial infarction Mother Alcoholism Sibling Cirrhosis Social History Social History Social History: She is since 2017. Her oldest daughter Rose lives with her. She has had 3 daughters. 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 Lifelong nonsmoker, no alcohol or illicit drugs. Had heavy secondhand smoke exposure as a child and young adult. Code status: DNR/DNI per patient request. She states that she is lift a long full life and is not afraid of . Healthcare power of conciliator: Rose (daughter) Smoking status: Never smoker Alcohol intake: never Substance use: never Gender identity (if verbalized by the patient): Female Spiritual care concerns: No Agree to blood products: Yes Exam Narrative: GENERAL: Well-appearing, well-nourished, and in no acute distress. HEAD: Normocephalic, atraumatic. EYES: PERRLA and EOMI. ENT: Nares clear, no rhinorrhea or epistaxis. Mucous membranes moist. NECK: Supple. CHEST: Clear to auscultation. No respiratory distress. HEART: Regular rate and rhythm. No murmur heard. Normal peripheral pulses. ABDOMEN: Soft, nontender, nondistended, normal active bowel sounds. EXTREMITIES: Normal range of motion. No edema. SKIN: Warm, dry, no rash. NEURO: No focal deficits. Alert and oriented x1. PSYCH: Normal mood and affect. Course Course Emergency Course: EKG: Atrial fibrillation rate of [address] elevation or ST depression Vital Signs Vital signs: Vital Signs Temperature 36.8 C 10/29/21 15:04 Pulse Rate 99 10/29/21 15:04 Respiratory Rate 16 10/29/21 15:04 Blood Pressure 107/68 10/29/21 15:04 Pulse Oximetry 95 10/29/21 15:04 Temperature 36.8 C 10/29/21 15:04 Pulse Rate 109 H 10/29/21 23:14 Respiratory Rate 21 H 10/29/21 23:14 Blood Pressure 126/80 10/29/21 23:14 Pulse Oximetry 94 10/29/21 23:14 Medical Decision Making Vital Signs Vital Signs: V
[2021-10-29] MEDS: ALBUTEROL SULFATE NEB 2.5 MG/0.5 ML INH 5 MG INHALATION (21:40)
[2021-10-29] MEDS: IPRATROPIUM BR 0.02% INH SOLN 0.5 MG/2.5 ML VIAL INHALATION (21:40)
[2021-10-29 21:45] LABS: Basophils Absolute Auto 0.1 K/mm3 (0.0-0.1); Basophils Percent Auto 0.8 % (0.2-1.2); Eosinophils Absolute Auto 0.2 K/mm3 (0-0.3); Eosinophils Percent Auto 2.7 % (0-4.4); Immature Granulocyte Absolute 0.02 K/mm3 (0.00-0.031); Immature Granulocyte Percent A 0.2 % (0-0.5); Lymphocytes Absolute Auto 2.27 K/mm3 (0.9-3.2); Lymphocytes Percent Auto 26.6 % (18.3-44.2); Mean Corpuscular HGB Conc 30.3 g/dl (32-36); Mean Corpuscular Hemoglobin 28.8 pg (26-34); Mean Corpuscular Volume 95.1 fl (80-100); Mean Platelet Volume 9.8 fl (7.4-10.4); Monocytes Absolute Auto 0.9 K/mm3 (0.1-0.6); Neutrophils Absolute Auto 5.1 K/mm3 (1.3-6.7); Neutrophils Percent Auto 59.7 % (45.5-73.1); Platelet Count Result 440 k/mm3 (150-375); Red Blood Count 3.47 M/mm3 (4.2-5.4); Red Cell Distribution Width 15.3 % (11.5-14.5); White Blood Count 8.5 K/mm3 (4.5-10.0)
--- NOTE | 2021-10-29 21:53 | PC.NURSE ---
Pt getting breathing treatment at this time. will attempt to get urine when finished
[2021-10-29 21:54] LABS: INR 1.7; Prothrombin Time 19.8 Seconds (11.1-14.7)
[2021-10-29 21:55] LABS: Alanine Aminotransferase 16 U/L (4-35); Albumin Level 3.7 g/dL (3.5-5.1); Alkaline Phosphatase 143 U/L (38-126); Anion Gap 6 mmol/L (8-16); Aspartate Amino Transferase 26 U/L (14-36); Bilirubin,Total 0.8 mg/dL (0.2-1.3); Blood Urea Nitrogen 16 mg/dL (7-17); Calcium 8.9 mg/dL (8.4-10.2); Carbon Dioxide 25 mmol/L (22-30); Chloride 102 mmol/L (98-107); Estimated CRCL calculation 35 ml/min; Estimated Glomerular Filt Rate 53; Glucose 119 mg/dL (65-110); Magnesium 2.2 mg/dL (1.6-2.3); Potassium 3.8 mmol/L (3.4-5.0); Sodium 133 mmol/L (137-145)
[2021-10-29 21:58] LABS: Base Excess ABG -1.8 mEq/l (+/-2.0); Fractional Inspired Oxygen 28 %; HCO3 ABG 20.6 mEq/l (22.0-26.0); Oxygen Content ABG 14.7 %vol (16.0-22.0); Oxygen Saturation ABG 99.4 % (95.0-100.0); Oxyhemoglobin 97.9 % THb (90.0-100.0); PCO2 ABG 27.4 mmHg (35.0-45.0); PO2 ABG 188.3 mmHg (80.0-100.0); PO2 FiO2 Ratio Arterial Blood 6.72 %; Total Hemoglobin 10.4 g/dL (12.0-18.0); pH ABG 7.494 (7.350-7.450)
[2021-10-29 22:01] LABS: Device NASAL CANNULA; Modified Allen's Test Pass; Site Drawn LEFT RADIAL
[2021-10-29 22:09] LABS: Troponin I < 0.012 ng/mL (0.000-0.034)
[2021-10-29 22:32] LABS: NT Pro B Type Natriuretic Pept 7260 pg/mL (5-100)
--- NOTE | 2021-10-29 23:15 | PC.NURSE ---
Pt walked from room 19 to bathroom next door without oxygen. Pt became very weak and SOB. Pt unable to ambulate back to room. used Anjali steady to get pt back to room
[2021-10-29 23:24] LABS: Add Urine Microscopic? YES; Appearance Urine Cloudy (Clear); Bilirubin Urine Negative (Negative); Blood Urine 1+ (Negative); Color Urine Yellow (Yellow); Glucose Urine UA Negative (Negative); Ketones Urine Negative (Negative); Leukocyte Esterase Ur 2+ LEU/UL (Negative); Mucus Urine Rare /lpf; Nitrate Urine Negative (Negative); Protein Urine Negative (Negative); Squamous Epithelial Cell Urine Few /hpf (Few); Urobilinogen Urine Negative mg/dL (<2.0); WBC Urine 31-50 /hpf
[2021-10-29] MEDS: FUROSEMIDE INJ 40 MG/4 ML VIAL IV PUSH (23:47)
--- NOTE | 2021-10-29 23:53 | PC.NURSE ---
Assumed care of pt at this time. Pt upright on stretcher, A&Ox2, disoriented to time. Family at bedside.
[2021-10-30] VITALS (22 sets, daily range): BP systolic 82–115; BP diastolic 40–77; PULSE 86–120; RESP 16–23; TEMP 36.3–36.6; O2SAT 94–99; BMI 26.6
[2021-10-30] MEDS: IPRATROPIUM BR 0.02% INH SOLN 0.5 MG/2.5 ML VIAL INHALATION ×3 (02:10→20:41)
[2021-10-30] MEDS: ALBUTEROL SULFATE NEB 2.5 MG/0.5 ML INH 5 MG INHALATION ×3 (02:10→20:41)
[2021-10-30 03:12] LABS: Troponin I < 0.012 ng/mL (0.000-0.034)
--- NOTE | 2021-10-30 03:44 | PC.NURSE ---
EDP and hospitalist notified of pt low BP. Pt awake and upright on stretcher, watching TV.
--- NOTE | 2021-10-30 03:55 | PC.NURSE ---
Report given to Radha HART at this time.
--- NOTE | 2021-10-30 04:04 | PM.IMHP ---
H&P: HPI History of Present Illness Date/Time: 10/30/21 04:04 Chief Complaint: Shortness of breath Narrative: Patient is a 86-year-old female who presents to the ED today with shortness of breath. She has been feeling unwell since past week or so. Denies any chest pain. She also has history of atrial fibrillation and COPD/emphysema. Not on home oxygen at home. She had a history of right pneumothorax recurrent last admission. She denies any fever or chills or cough however her daughter does report that she has been coughing for past few days. She has been fully vaccinated for COVID. She also reports swelling in her legs particularly on the left side. She has history of atrial fibrillation and is on anticoagulant. Review of Systems Review of Systems: - CONSTITUTIONAL: Denies weight loss, fever and chills. - HEENT: Denies changes in vision and hearing - RESPIRATORY: Reports SOB and cough. - CV: Denies palpitations and CP. - GI: Denies abdominal pain, nausea, vomiting and diarrhea. - : Denies dysuria and urinary frequency. - MSK: Denies myalgia and joint pain. - SKIN: Denies rash and pruritus. - NEUROLOGICAL: Denies headache and syncope. - PSYCHIATRIC: Denies recent changes in mood. Denies anxiety and depression. All systems reviewed & are unremarkable except as noted in HPI and below Constitutional: Constitutional: Reports fatigue and Reports weakness Neurologic: Reports weakness Endocrine: Endocrine: Reports fatigue PMFSH Past Medical History Medical History Afib Anemia Back pain Depression Left elbow fracture Leg fracture, right Shingles UTI (urinary tract infection) Surgical History Surgical History History of appendectomy History of tonsillectomy Status post cataract extraction of both eyes with insertion of intraocular lens Family History Family History Father Acute myocardial infarction Mother Alcoholism Sibling Cirrhosis Social History Social History Social History: She is since 2017. Her oldest daughter Rose lives with her. She has had 3 daughters. 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 Lifelong nonsmoker, no alcohol or illicit drugs. Had heavy secondhand smoke exposure as a child and young adult. Code status: DNR/DNI per patient request. She states that she is lift a long full life and is not afraid of . Healthcare power of document review attorney: Rose (daughter) Smoking status: Never smoker Alcohol intake: never Substance use: never Gender identity (if verbalized by the patient): Female Spiritual care concerns: No Agree to blood products: Yes Meds Home Medications and Allergies Home Medications Medication Instructions Recorded Confirmed Type metoprolol tartrate 37.5 mg PO Q12HR #60 tablet 11/08/19 07/27/21 Rx escitalopram oxalate 10 mg PO DAILY 10/29/21 History rivaroxaban [Xarelto] 20 mg PO DAILY 10/29/21 History Allergies Allergy/AdvReac Type Severity Reaction Status Date / Time Penicillins Allergy Unknown Unknown Verified 10/29/21 21:10 Vital Signs Vital Signs - 24 hr 10/29/21 15:04 10/29/21 19:00 10/29/21 21:08 Temperature 98.3 F Pulse Rate 99 108 H 99 Respiratory Rate 16 14 15 Blood Pressure 107/68 122/84 137/87 Pulse Oximetry 95 94 87 L 10/29/21 22:28 10/29/21 23:14 10/29/21 23:44 Temperature Pulse Rate 88 109 H 97 Respiratory Rate 21 H 19 Blood Pressure 126/80 113/87 Pulse Oximetry 94 93 10/30/21 01:13 10/30/21 02:14 10/30/21 02:59 Temperature Pulse Rate 115 H 120 H 107 H Respiratory Rate 22 H 22 H 20 Blood Pressure 115/69 109/77 Pulse Oximetry 95 94 94 10/30/21 03:36 10/30/21 03:45 Temperatur
--- NOTE | 2021-10-30 04:20 | PC.NURSE ---
Assuming care of pt.
[2021-10-30 08:41] LABS: EDCOVIDSCREEN Negative (Negative)
[2021-10-30] MEDS: METOPROLOL TARTRATE 12.5 MG TABLET PO ×2 (09:24→20:53)
[2021-10-30] MEDS: FUROSEMIDE INJ 40 MG/4 ML VIAL IV PUSH ×2 (09:24→22:03)
[2021-10-30] MEDS: METOPROLOL TARTRATE 25 MG TABLET PO ×2 (09:25→22:03)
[2021-10-30] MEDS: ESCITALOPRAM OXALATE 10 MG TABLET PO (09:25)
--- NOTE | 2021-10-30 11:41 | PC.NURSE ---
pt has comer cath initiated by table games shift manager staff. patent/intact and draining yellow urine to bag. stat lock in place
--- NOTE | 2021-10-30 14:13 | PC.NURSE ---
This patient, Mónica Blum, was admitted to [facility] Surg Room 322-02. Patient/family oriented to hospital policies and general routines including ID bracelet, bed and alarms, visiting hours, pain management, procedures, bathroom and other care routines, personal items, smoking policy, room service/diet, and visiting hours. Information on how to activate the Rapid Response Team has been discussed. Patient/Family are encouraged to report perceived risks to care and to ask questions if they do not understand what they are told or what they should do.
[2021-10-30 16:46] LABS: SARS-CoV-2 RNA PCR Negative (Negative)
[2021-10-30] MEDS: RIVAROXABAN 20 MG TABLET PO (18:27)
[2021-10-31] VITALS (15 sets, daily range): BP systolic 86–101; BP diastolic 43–58; PULSE 91–108; RESP 16–20; TEMP 36.3–36.7; O2SAT 93–99
[2021-10-31] MEDS: IPRATROPIUM BR 0.02% INH SOLN 0.5 MG/2.5 ML VIAL INHALATION ×2 (02:29→08:09)
[2021-10-31] MEDS: ALBUTEROL SULFATE NEB 2.5 MG/0.5 ML INH 5 MG INHALATION ×2 (02:29→08:09)
[2021-10-31] MEDS: METOPROLOL TARTRATE 12.5 MG TABLET PO ×2 (09:39→20:13)
[2021-10-31] MEDS: METOPROLOL TARTRATE 25 MG TABLET PO ×2 (09:39→20:13)
[2021-10-31] MEDS: FUROSEMIDE INJ 40 MG/4 ML VIAL IV PUSH ×2 (09:41→20:12)
--- NOTE | 2021-10-31 10:36 | PM.IMPN ---
Progress Note: A&P Assessment and Plan (1) Acute dyspnea: Code(s): R06.00 - Dyspnea, unspecified Status: Acute (2) Pneumonia: Qualifiers: Laterality: unspecified laterality Lung location: unspecified part of lung Pneumonia type: due to unspecified organism Qualified Code(s): J18.9 - Pneumonia, unspecified organism Code(s): J18.9 - Pneumonia, unspecified organism Status: Acute (3) Acute respiratory failure with hypoxia: Code(s): J96.01 - Acute respiratory failure with hypoxia Status: Acute (4) CHF (congestive heart failure): Qualifiers: Heart failure chronicity: unspecified Heart failure type: unspecified Qualified Code(s): I50.9 - Heart failure, unspecified Code(s): I50.9 - Heart failure, unspecified Status: Acute (5) Atrial fibrillation: Qualifiers: Atrial fibrillation type: unspecified chronic Qualified Code(s): I48.20 - Chronic atrial fibrillation, unspecified Code(s): I48.91 - Unspecified atrial fibrillation Status: Acute Additional Plan # Acute hypoxic respiratory failure oxygen supplementation CTA negative for PE D-dimer was elevated. Continue treatment for pneumonia and oxygen supplementation. # Bilateral pneumonia: Patient is improving on azithromycin ceftriaxone as ordered bronchodilators, COVID swab negative. Fully vaccinated # Congestive heart failure acute on chronic Lasix IV b.i.d. as ordered echocardiogram in a.m.. Elevated BNP at 7260. Currently patient relatively euvolemic. Continue IV Lasix. Switch to p.o. at the time of discharge. # Atrial fibrillation chronic with mild RVR resume home medication # Severe emphysema/COPD # UTI ring cultures positive for Klebsiella sensitive to Rocephin. # Mild anemia: Mild decrease of hemoglobin from 10-9. Continue to monitor. Send I run B12 folate with morning labs. # respiratory alkalosis CTA negative for PE # Recent history of spontaneous pneumothorax July 2021 # Dementia # DVT prophylaxis on Xarelto which will be resumed # Full code status Subjective Date/time seen: 10/31/21 10:36 Patient is a 86-year-old female who presents to the ED today with shortness of breath. She has been feeling unwell since past week or so. Denies any chest pain. She also has history of atrial fibrillation and COPD/emphysema. Not on home oxygen at home. She had a history of right pneumothorax recurrent last admission. She denies any fever or chills or cough however her daughter does report that she has been coughing for past few days. She has been fully vaccinated for COVID. She also reports swelling in her legs particularly on the left side. She has history of atrial fibrillation and is on anticoagulant. S: Patient examined at the bedside. She is feeling better. No active complaints. Review of Systems Review of Systems: All systems reviewed & are unremarkable except as noted in HPI and below Constitutional: Constitutional: Reports fatigue and Reports weakness Neurologic: Reports weakness Endocrine: Endocrine: Reports fatigue Exam Narrative: GENERAL: Ill-looking, and in no acute distress. Temperature 97.3? F, pulse 1 100-108, pulse ox 94 and on oxygen 1.5 L., respiration 20. HEAD: Normocephalic, atraumatic. EYES: PERRLA and EOMI. ENT: Nares clear, no rhinorrhea or epistaxis. Mucous membranes moist. NECK: Supple. CHEST: Coarse breath sounds bilaterally to auscultation. In mild respiratory distress. HEART: Mildly tachycardic irregular irregular. No murmur heard. Normal peripheral pulses. ABDOMEN: Soft, nontender, nondistended, normal active bowel sounds. EXTREMITIES: Normal range of motion. Left lower extremity edema noted SKIN: Warm, dry, no rash. NEURO: No focal deficits. Alert and oriented x 3 but has underlying dementia PSYCH: Normal mood and affect. Objective Data Vital Signs Vital Signs: Vital Signs - 24 hr 10/30/21 11:37 10/30/21 14:07 10/30/21 14:3
[2021-10-31 11:03] LABS: Hematocrit 29.3 % (37.0-47.0); Hemoglobin 8.9 g/dL (12.0-15.0); Mean Corpuscular HGB Conc 30.4 g/dl (32-36); Mean Corpuscular Hemoglobin 28.2 pg (26-34); Mean Corpuscular Volume 92.7 fl (80-100); Mean Platelet Volume 10.2 fl (7.4-10.4); Platelet Count Result 395 k/mm3 (150-375); Red Blood Count 3.16 M/mm3 (4.2-5.4); Red Cell Distribution Width 15.3 % (11.5-14.5); White Blood Count 7.2 K/mm3 (4.5-10.0)
[2021-10-31 11:10] LABS: Anion Gap 6 mmol/L (8-16); Blood Urea Nitrogen 16 mg/dL (7-17); Calcium 8.4 mg/dL (8.4-10.2); Carbon Dioxide 31 mmol/L (22-30); Chloride 96 mmol/L (98-107); Estimated CRCL calculation 32 ml/min; Estimated Glomerular Filt Rate 47; Glucose 156 mg/dL (65-110); Potassium 3.1 mmol/L (3.4-5.0); Sodium 133 mmol/L (137-145)
[2021-10-31] MEDS: ESCITALOPRAM OXALATE 10 MG TABLET PO (12:42)
[2021-10-31] MEDS: RIVAROXABAN 20 MG TABLET PO (17:27)
--- NOTE | 2021-10-31 22:16 | PCRCNOTE ---
pt stated she did not want to be woken up this evening for treatment. pt stated she would rather keep sleeping.
[2021-11-01] VITALS (20 sets, daily range): BP systolic 93–100; BP diastolic 51–57; PULSE 88–123; RESP 17–20; TEMP 36.2–37; O2SAT 91–96
--- NOTE | 2021-11-01 | ECHO_ITS ---
Patient Info Name: Mónica Blum Age: 86 years : 1935 Gender: Female Ht: 67 in Wt: 169 lbs BSA: 1.92 m2 HR: 123 bpm BP: 100 / 51 mmHg Heart Rhythm: Atrial Fibrillation Technical Quality: Fair Exam Date: 11/01/2021 3:08 PM Exam Location: [facility] Card Pulmonary Patient Status: Inpatient Admit Date: 10/31/2021 Staff Ordering Physician: Kae Trotter MD Cardiovascular Tech: Martha Novoa RDCS Attending Provider: Yinka Bravo MD Exam Type: CA echo doppler color flow Study Info Indications - CHF Complete two-dimensional, color flow and Doppler transthoracic echocardiogram is performed. Summary 1. Complete two-dimensional, color flow and Doppler transthoracic echocardiogram is performed. 2. Normal left ventricular size with mild concentric hypertrophy. There is good systolic function of all segments with ejection fraction 65-70%. No wall motion abnormalities are present. Normal diastolic function. 3. Left atrial chamber dimension is mildly enlarged. 4. There is mild mitral valve regurgitation. 5. There is mild tricuspid valve regurgitation. 6. No pulmonary hypertension, estimated pulmonary arterial systolic pressure is 34 mmHg. 7. The rhythm appears to be atrial fibrillation. Left Ventricle Left ventricular chamber dimension is normal. Left ventricular systolic function is normal, estimated at 60-65%. There is mildly increased left ventricular wall thickness. Left ventricular septal wall motion is normal. The left ventricular diastolic function is normal. Right Ventricle Right ventricular chamber dimension is normal. Right ventricular systolic function is normal. Left Atria Left atrial chamber dimension is mildly enlarged. Right Atria Right atrial chamber dimension is normal. Aortic Valve The aortic valve is trileaflet. There is no aortic valve sclerosis. There is no aortic valve stenosis. There is no aortic valve regurgitation. Pulmonic Valve The pulmonic valve is normal. There is no pulmonic valve stenosis. There is no pulmonic regurgitation. Mitral Valve The mitral valve has normal leaflets. There is no mitral valve stenosis. There is mild mitral valve regurgitation. Tricuspid Valve The tricuspid valve leaflets are normal. There is no significant tricuspid valve stenosis. There is mild tricuspid valve regurgitation. No pulmonary hypertension, estimated pulmonary arterial systolic pressure is 34 mmHg. Pericardium/Pleural The pericardium appears normal. There is no pericardial effusion. Inferior Vena Cava Normal inferior vena cava with >50% collapse upon inspiration consistent with Empty right atrial pressure, 10 mmHg. Aorta The aortic root size at the sinus of Valsalva is normal. The prox ascending aorta size is normal. Left Ventricular Outflow Tract Name Value Normal LVOT 2D LVOT Diameter 2.1 cm LVOT Doppler LVOT Peak Gradient 2 mmHg LVOT Mean Gradient 1 mmHg LVOT VTI 11 cm LVOT VTI/AV VTI Ratio 1.1 LVOT Stroke
[2021-11-01] MEDS: ALBUTEROL SULFATE NEB 2.5 MG/0.5 ML INH 5 MG INHALATION ×3 (03:02→14:40)
[2021-11-01] MEDS: IPRATROPIUM BR 0.02% INH SOLN 0.5 MG/2.5 ML VIAL INHALATION ×3 (03:03→14:40)
[2021-11-01 06:13] LABS: Anion Gap 6 mmol/L (8-16); Blood Urea Nitrogen 17 mg/dL (7-17); Calcium 8.3 mg/dL (8.4-10.2); Carbon Dioxide 30 mmol/L (22-30); Chloride 96 mmol/L (98-107); Estimated CRCL calculation 32 ml/min; Estimated Glomerular Filt Rate 47; Glucose 105 mg/dL (65-110); Potassium 3.2 mmol/L (3.4-5.0); Sodium 132 mmol/L (137-145)
[2021-11-01 06:19] LABS: Hematocrit 28.3 % (37.0-47.0); Hemoglobin 8.8 g/dL (12.0-15.0); Mean Corpuscular HGB Conc 31.1 g/dl (32-36); Mean Corpuscular Volume 93.4 fl (80-100); Mean Platelet Volume 10.3 fl (7.4-10.4); Platelet Count Result 365 k/mm3 (150-375); Red Blood Count 3.03 M/mm3 (4.2-5.4); Red Cell Distribution Width 15.1 % (11.5-14.5); White Blood Count 6.8 K/mm3 (4.5-10.0)
[2021-11-01 06:39] LABS: Iron 20 ug/dL (37-170)
[2021-11-01 06:48] LABS: Percent Iron Saturation 6 % (20-50)
[2021-11-01 07:16] LABS: Folic Acid 4.3 ng/mL (2.76->20)
[2021-11-01] MEDS: ESCITALOPRAM OXALATE 10 MG TABLET PO (09:43)
[2021-11-01] MEDS: FUROSEMIDE INJ 40 MG/4 ML VIAL IV PUSH (09:43)
[2021-11-01] MEDS: METOPROLOL TARTRATE 25 MG TABLET PO ×2 (09:43→20:46)
[2021-11-01] MEDS: METOPROLOL TARTRATE 12.5 MG TABLET PO ×2 (09:44→20:46)
[2021-11-01 10:05] LABS: Magnesium 2.1 mg/dL (1.6-2.3)
--- NOTE | 2021-11-01 10:39 | PM.IMPN ---
Progress Note: A&P Assessment and Plan (1) Acute dyspnea: Code(s): R06.00 - Dyspnea, unspecified Status: Acute Assessment and Plan: .Acute hypoxic respiratory failure oxygen supplementation CTA negative for PE D-dimer was elevated.Resolving with antibiotic treatment of pneumonia Continue treatment for pneumonia and oxygen supplementation. (2) Pneumonia: Qualifiers: Laterality: unspecified laterality Lung location: unspecified part of lung Pneumonia type: due to unspecified organism Qualified Code(s): J18.9 - Pneumonia, unspecified organism Code(s): J18.9 - Pneumonia, unspecified organism Status: Acute Assessment and Plan: Bilateral pneumonia: Patient is improving on azithromycin ceftriaxone as ordered bronchodilators, COVID swab negative. Fully vaccinated. Continue IV antibiotics. (3) Acute respiratory failure with hypoxia: Code(s): J96.01 - Acute respiratory failure with hypoxia Status: Acute Assessment and Plan: Currently with mild oxygen requirement 1.5 L. Perform home O2 evaluation within the next 48 hours. (4) CHF (congestive heart failure): Qualifiers: Heart failure chronicity: unspecified Heart failure type: unspecified Qualified Code(s): I50.9 - Heart failure, unspecified Code(s): I50.9 - Heart failure, unspecified Status: Acute Assessment and Plan: Congestive heart failure, acute on chronic, started on Lasix 40 mg IV b.i.d. follow-up echocardiogram in a.m.. Elevated BNP at 7260. Currently patient relatively euvolemic.. IV Lasix. Switch to p.o. Lasix 20 mg daily today.Currently comfortable on room air and tolerating decubitus position. (5) Atrial fibrillation: Qualifiers: Atrial fibrillation type: unspecified chronic Qualified Code(s): I48.20 - Chronic atrial fibrillation, unspecified Code(s): I48.91 - Unspecified atrial fibrillation Status: Acute Assessment and Plan: Continue metoprolol for rate control and Xarelto. Mild transient tachycardia this morning, improved after administration of regular metoprolol. (6) COPD (chronic obstructive pulmonary disease): Code(s): J44.9 - Chronic obstructive pulmonary disease, unspecified Status: Acute Assessment and Plan: Severe emphysema/COPD. Home O2 evaluation a the time of discharge. (7) Impaired cognition: Code(s): R41.89 - Other symptoms and signs involving cognitive functions and awareness Status: Acute Assessment and Plan: Physical therapy and occupational therapy evaluation. Maintain fall precautions. (8) Anemia: Code(s): D64.9 - Anemia, unspecified Status: Acute Assessment and Plan: Iron stores on the low side. Started ferrous sulfate a tablet p.o. b.i.d.. Additional Plan # UTI ring cultures positive for Klebsiella sensitive to Rocephin. # Mild anemia: Mild decrease of hemoglobin from 10-9. Continue to monitor. Send Iron, B12 folate with morning labs. # respiratory alkalosis CTA negative for PE # Recent history of spontaneous pneumothorax July 2021 # DVT prophylaxis on Xarelto which will be resumed # Full code status Subjective Date/time seen: 11/01/21 10:39 S: Patient examined at the bedside. She denies any history artery complaints. She is feeling fine. There is no cough or fever. Appetite is okay. Review of Systems Review of Systems: All systems reviewed & are unremarkable except as noted in HPI and below Constitutional: Constitutional: Reports fatigue and Reports weakness Respiratory: Respiratory: Denies cough, Denies dyspnea and Denies dyspnea on exertion Neurologic: Reports weakness Endocrine: Endocrine: Reports fatigue Exam Narrative: GENERAL: Ill-looking, and in no acute distress. Temperature 98.1? F, pulse 92-123, pulse ox 95 and on oxygen 1.5 L., respiration 20. HEAD: Normocephalic, atraumatic. EYES: PERRLA and EOMI. ENT: Laila crescencio
--- NOTE | 2021-11-01 14:44 | P.CDI_ITS ---
CDI Query Clarification Request Patient presented with SOB and upper respiratory infection, admitted with pneumonia acute respiratory failure and CHF. Acute on Chronic CHF has been documented, 40mg IV Lasix q12hr started on 10/30/21. Please clarify type of CHF if known: * Diastolic * Systolic * Combined (both) * Unknown Thank you! <Ciara Javier [employer]ERCIAL DOOR INSTALLER - Last Filed: 11/01/21 14:47> Clarified Diagnosis (1) CHF (congestive heart failure): Qualifiers: Heart failure chronicity: unspecified Heart failure type: unspecified Qualified Code(s): I50.9 - Heart failure, unspecified <Ciara Javier COMMERCIAL DOOR INSTALLER - Last Filed: 11/01/21 14:47> Code(s): I50.9 - Heart failure, unspecified <Ciara Javier [employer]ER[employer]OR INSTALLER - Last Filed: 11/01/21 14:47> Status: Acute <Ciara Javier COMMERCIAL DOOR INSTALLER - Last Filed: 11/01/21 14:47> Assessment and Plan: Possible fluid overload on admission. On echocardiogram there is good systolic function of all segments with ejection fraction 65-70%. The left ventricular diastolic function is normal. There is no pulmonary hypertension. Echocardiogram 11/01/2021. Summary 1. Complete two-dimensional, color flow and Doppler transthoracic echocardiogram is performed. 2. Normal left ventricular size with mild concentric hypertrophy. There is good systolic function of all segments with ejection fraction 65-70%. No wall motion abnormalities are present. Normal diastolic function. 3. Left atrial chamber dimension is mildly enlarged. 4. There is mild mitral valve regurgitation. 5. There is mild tricuspid valve regurgitation. 6. No pulmonary hypertension, estimated pulmonary arterial systolic pressure is 34 mmHg. 7. The rhythm appears to be atrial fibrillation. Left Ventricle Left ventricular chamber dimension is normal. Left ventricular systolic function is normal, estimated at 60-65%. There is mildly increased left ventricular wall thickness. Left ventricular septal wall motion is normal. The left ventricular diastolic function is normal. Right Ventricle Right ventricular chamber dimension is normal. Right ventricular systolic function is normal. Left Atria Left atrial chamber dimension is mildly enlarged. Right Atria Right atrial chamber dimension is normal. Aortic Valve The aortic valve is trileaflet. There is no aortic valve sclerosis. There is no aortic valve stenosis. There is no aortic valve regurgitation. Pulmonic Valve The pulmonic valve is normal. There is no pulmonic valve stenosis. There is no pulmonic regurgitation. Mitral Valve The mitral valve has normal leaflets. There is no mitral valve stenosis. There is mild mitral valve regurgitation. Tricuspid Valve The tricuspid valve leaflets are normal. There is no significant tricuspid valve stenosis. There is mild tricuspid valve regurgitation. No pulmonary hypertension, estimated pulmonary arterial systolic pressure is 34 mmHg. Pericardium/Pleural The pericardium appears normal. There is no pericardial effusion. Inferior Vena Cava Normal inferior vena cava with >50% collapse upon inspiration consistent with Empty right atrial pressure, 10 mmHg. Aorta The aortic root size at the sinus of Valsalva is normal. The prox ascending aorta size is normal. <Kae Trotter MD - Last Filed: 11/04/21 20:44>
[2021-11-01] MEDS: FERROUS SULFATE 324 MG TABLET PO ×2 (17:10→17:11)
[2021-11-01] MEDS: POTASSIUM CHLORIDE 20 MEQ PACKET (FOR LIQUID) 40 MEQ PO (17:11)
[2021-11-01] MEDS: RIVAROXABAN 20 MG TABLET PO (17:11)
[2021-11-01 18:52] LABS: Influenza Control Positive
[2021-11-02] VITALS (18 sets, daily range): BP systolic 86–98; BP diastolic 41–66; PULSE 83–106; RESP 16; TEMP 36.7–36.9; O2SAT 92–96
[2021-11-02] MEDS: IPRATROPIUM BR 0.02% INH SOLN 0.5 MG/2.5 ML VIAL INHALATION ×4 (01:48→21:52)
[2021-11-02] MEDS: ALBUTEROL SULFATE NEB 2.5 MG/0.5 ML INH 5 MG INHALATION ×4 (01:48→20:00)
[2021-11-02] MEDS: METOPROLOL TARTRATE 25 MG TABLET PO ×2 (08:56→20:56)
[2021-11-02] MEDS: FUROSEMIDE 20 MG TABLET PO (08:56)
[2021-11-02] MEDS: ESCITALOPRAM OXALATE 10 MG TABLET PO (08:56)
[2021-11-02] MEDS: FERROUS SULFATE 324 MG TABLET PO ×2 (08:56→17:01)
[2021-11-02] MEDS: METOPROLOL TARTRATE 12.5 MG TABLET PO ×2 (08:59→20:55)
--- NOTE | 2021-11-02 09:46 | PCRCNOTE ---
Window of time for administration has passed. See next scheduled administration.
--- NOTE | 2021-11-02 16:36 | PM.IMPN ---
Progress Note: A&P Assessment and Plan (1) Acute dyspnea: Code(s): R06.00 - Dyspnea, unspecified Status: Acute Assessment and Plan: .Acute hypoxic respiratory failure oxygen supplementation CTA negative for PE D-dimer was elevated.Resolving with antibiotic treatment of pneumonia Continue treatment for pneumonia and oxygen supplementation. Home O2 evaluation. Plan for discharge today. (2) Pneumonia: Qualifiers: Laterality: unspecified laterality Lung location: unspecified part of lung Pneumonia type: due to unspecified organism Qualified Code(s): J18.9 - Pneumonia, unspecified organism Code(s): J18.9 - Pneumonia, unspecified organism Status: Acute Assessment and Plan: Bilateral pneumonia: Patient is improving on azithromycin ceftriaxone as ordered bronchodilators, COVID swab negative. Fully vaccinated. Continue IV antibiotics. (3) Acute respiratory failure with hypoxia: Code(s): J96.01 - Acute respiratory failure with hypoxia Status: Acute Assessment and Plan: Currently with mild oxygen requirement 1.5 L. Perform home O2 evaluation within the next 48 hours. (4) CHF (congestive heart failure): Qualifiers: Heart failure chronicity: unspecified Heart failure type: unspecified Qualified Code(s): I50.9 - Heart failure, unspecified Code(s): I50.9 - Heart failure, unspecified Status: Acute Assessment and Plan: Congestive heart failure, acute on chronic, started on Lasix 40 mg IV b.i.d. follow-up echocardiogram in a.m.. Elevated BNP at 7260. Currently patient relatively euvolemic. Stop IV Lasix. Switch to p.o. Lasix 20 mg daily today.Currently comfortable on room air and tolerating decubitus position. (5) Atrial fibrillation: Qualifiers: Atrial fibrillation type: unspecified chronic Qualified Code(s): I48.20 - Chronic atrial fibrillation, unspecified Code(s): I48.91 - Unspecified atrial fibrillation Status: Acute Assessment and Plan: Continue metoprolol for rate control and Xarelto. Mild transient tachycardia this morning, improved after administration of regular metoprolol. (6) COPD (chronic obstructive pulmonary disease): Code(s): J44.9 - Chronic obstructive pulmonary disease, unspecified Status: Acute Assessment and Plan: Severe emphysema/COPD. Home O2 evaluation a the time of discharge. (7) Impaired cognition: Code(s): R41.89 - Other symptoms and signs involving cognitive functions and awareness Status: Acute Assessment and Plan: Physical therapy and occupational therapy evaluation. Maintain fall precautions. (8) Anemia: Code(s): D64.9 - Anemia, unspecified Status: Acute Assessment and Plan: Iron stores on the low side. Continue ferrous sulfate a tablet p.o. b.i.d.. Additional Plan # UTI ring cultures positive for Klebsiella sensitive to Rocephin. # Mild anemia: Mild decrease of hemoglobin from 10-9. Continue to monitor. Send Iron, B12 folate with morning labs. # respiratory alkalosis CTA negative for PE # Recent history of spontaneous pneumothorax July 2021 # DVT prophylaxis on Xarelto which will be resumed # Full code status Subjective Date/time seen: 11/02/21 16:36 S: Patient is examined at the bedside. She is in very good spirit. She denies any symptoms. Review of Systems Review of Systems: All systems reviewed & are unremarkable except as noted in HPI and below Constitutional: Constitutional: Reports as per HPI, Reports no additional constitutional complaints, Reports fatigue and Reports weakness Eyes: Eyes: Reports as per HPI and Reports no additional eye complaints ENT: Reports system reviewed and no additional complaints, except as documented and Reports as per HPI Cardiovascular: Cardiovascular: Reports as per HPI, Reports no additional cardiovascular complaints, Denies dyspnea and Denies dyspnea on e
--- NOTE | 2021-11-02 16:42 | PM.DS ---
DS: Summary Time Spent with Patient Time attestation: Total time spent providing and/or coordinating discharge services: DS: Data Data Completed and Pending Labs on day of discharge: Labs from last 24 hours 11/02/21 11/02/21 11/01/21 16:29 16:29 17:13 WBC Pending RBC Pending Hgb Pending Hct Pending MCV Pending MCH Pending MCHC Pending RDW Pending Plt Count Pending MPV Pending Immature Gran % (Auto) Pending Neut % (Auto) Pending Lymph % (Auto) Pending [place] % (Auto) Pending Eos % (Auto) Pending Baso % (Auto) Pending Lymph # (Auto) Pending [place] # (Auto) Pending Eos # (Auto) Pending Baso # (Auto) Pending Abs Immat Gran (auto) Pending Absolute Neuts (auto) Pending Absolute Nucleated RBC Pending Nucleated RBC % Pending Sodium Pending Potassium Pending Chloride Pending Carbon Dioxide Pending Anion Gap Pending BUN Pending Creatinine Pending Estim Creat Clear Calc Pending Estimated GFR Pending Glucose Pending Calcium Pending Influenza Types A,B Ag Negative Preliminary micro results at discharge 10/30/21 02:36 Blood Culture - Preliminary Blood 10/30/21 02:36 Blood Culture - Preliminary Blood Discharge Plan Discharge Attending physician on discharge: Kae Trotter Discharging Clinician: Kae Trotter Anticipated Discharge Date/Time: 11/02/21 17:00 Patient Disposition: Home, Self-Care Activity: may shower Diet: regular Patient Instructions: Antibiotic Form, Rivaroxaban (By mouth), A-fib (Atrial Fibrillation) (DC) Patient Language: Irish Stand Alone Forms: General Discharge Information Follow-up/Referrals: Florentino Hollins MD [Primary Care Provider] - 1 Week Discharge Medications: New ferrous sulfate 325 mg (65 mg iron) Tablet 324 mg PO BIDWM Qty: 60 RF: 0 amoxicillin-pot clavulanate [Augmentin] 875-125 mg tablet 1 tablet PO Q12H Qty: 10 RF: 0 furosemide 20 mg Tablet 20 mg PO DAILY Qty: 30 RF: 0 Continued metoprolol tartrate 37.5 mg Tablet 37.5 mg PO Q12HR Qty: 60 RF: 3 escitalopram oxalate 10 mg tablet 10 mg PO DAILY RF: 0 Xarelto 20 mg tablet 20 mg PO DAILY RF: 0 Date of admission: 10/31/21 09:53 Primary Care Provider: Florentino Hollins Admitting Provider: Yinka Bravo Attending physician on admission: Yinka Bravo Condition: Stable
[2021-11-02 16:43] LABS: Basophils Absolute Auto 0.1 K/mm3 (0.0-0.1); Basophils Percent Auto 1.2 % (0.2-1.2); Eosinophils Absolute Auto 0.4 K/mm3 (0-0.3); Eosinophils Percent Auto 4.8 % (0-4.4); Hematocrit 33.2 % (37.0-47.0); Hemoglobin 9.9 g/dL (12.0-15.0); Immature Granulocyte Absolute 0.02 K/mm3 (0.00-0.031); Immature Granulocyte Percent A 0.3 % (0-0.5); Lymphocytes Absolute Auto 1.49 K/mm3 (0.9-3.2); Lymphocytes Percent Auto 19.8 % (18.3-44.2); Mean Corpuscular HGB Conc 29.8 g/dl (32-36); Mean Corpuscular Hemoglobin 28.2 pg (26-34); Mean Corpuscular Volume 94.6 fl (80-100); Mean Platelet Volume 9.9 fl (7.4-10.4); Monocytes Percent Auto 13.4 % (2.6-8.5); Neutrophils Absolute Auto 4.6 K/mm3 (1.3-6.7); Neutrophils Percent Auto 60.5 % (45.5-73.1); Platelet Count Result 431 k/mm3 (150-375); Red Blood Count 3.51 M/mm3 (4.2-5.4); Red Cell Distribution Width 15.1 % (11.5-14.5); White Blood Count 7.5 K/mm3 (4.5-10.0)
[2021-11-02 16:54] LABS: Anion Gap 7 mmol/L (8-16); Blood Urea Nitrogen 17 mg/dL (7-17); Calcium 8.8 mg/dL (8.4-10.2); Carbon Dioxide 29 mmol/L (22-30); Chloride 96 mmol/L (98-107); Estimated CRCL calculation 30 ml/min; Estimated Glomerular Filt Rate 43; Glucose 105 mg/dL (65-110); Potassium 4.3 mmol/L (3.4-5.0); Sodium 132 mmol/L (137-145)
[2021-11-02] MEDS: RIVAROXABAN 20 MG TABLET PO (17:01)
[2021-11-02] MEDS: POTASSIUM CHLORIDE 20 MEQ PACKET (FOR LIQUID) PO (17:01)
--- NOTE | 2021-11-02 18:09 | PC.NURSE ---
Respiratory department unable to perform walking o2 evaluation tonight. Contacted August CoffeyRibbon Winder and informed her of delay in discharge. Informed patient and patient's daughter of delay in discharge and both are agreeable to discharge home tomorrow 11.03.2021.
[2021-11-02] MEDS: IRON SUCROSE COMPLEX 100 MG in SODIUM CHLORIDE 0.9% IV 50 ML 220 MG IVPB (21:31)
[2021-11-03] VITALS (20 sets, daily range): BP systolic 82–111; BP diastolic 46–55; PULSE 84–113; RESP 16–18; TEMP 36.7–37.5; O2SAT 86–92
[2021-11-03] MEDS: ALBUTEROL SULFATE NEB 2.5 MG/0.5 ML INH 5 MG INHALATION ×3 (03:01→21:37)
[2021-11-03] MEDS: IPRATROPIUM BR 0.02% INH SOLN 0.5 MG/2.5 ML VIAL INHALATION ×3 (03:01→21:37)
--- NOTE | 2021-11-03 09:00 | PM.IMPN ---
Progress Note: A&P Assessment and Plan (1) Acute dyspnea: Code(s): R06.00 - Dyspnea, unspecified Status: Acute Assessment and Plan: .Acute hypoxic respiratory failure oxygen supplementation CTA negative for PE D-dimer was elevated.Resolving with antibiotic treatment of pneumonia Continue treatment for pneumonia and oxygen supplementation. Home O2 evaluation. Plan for discharge today. Patient does not require oxygen at rest. She requires 2 L of oxygen with activity. (2) Pneumonia: Qualifiers: Laterality: unspecified laterality Lung location: unspecified part of lung Pneumonia type: due to unspecified organism Qualified Code(s): J18.9 - Pneumonia, unspecified organism Code(s): J18.9 - Pneumonia, unspecified organism Status: Acute Assessment and Plan: Bilateral pneumonia: Patient is improving on azithromycin ceftriaxone as ordered bronchodilators, COVID swab negative. Fully vaccinated. Continue IV antibiotics. Patient can be discharged on a 5 day course of augmentin. (3) Acute respiratory failure with hypoxia: Code(s): J96.01 - Acute respiratory failure with hypoxia Status: Acute Assessment and Plan: Currently with mild oxygen requirement 1.5 L. Perform home O2 evaluation within the next 48 hours. (4) CHF (congestive heart failure): Qualifiers: Heart failure chronicity: unspecified Heart failure type: unspecified Qualified Code(s): I50.9 - Heart failure, unspecified Code(s): I50.9 - Heart failure, unspecified Status: Acute Assessment and Plan: Congestive heart failure, acute on chronic, started on Lasix 40 mg IV b.i.d. follow-up echocardiogram in a.m.. Elevated BNP at 7260. Currently patient relatively euvolemic. Stop IV Lasix. Switch to p.o. Lasix 20 mg daily today.Currently comfortable on room air and tolerating decubitus position. (5) Atrial fibrillation: Qualifiers: Atrial fibrillation type: unspecified chronic Qualified Code(s): I48.20 - Chronic atrial fibrillation, unspecified Code(s): I48.91 - Unspecified atrial fibrillation Status: Acute Assessment and Plan: Continue metoprolol for rate control and Xarelto. Mild transient tachycardia this morning, improved after administration of regular metoprolol. (6) COPD (chronic obstructive pulmonary disease): Code(s): J44.9 - Chronic obstructive pulmonary disease, unspecified Status: Acute Assessment and Plan: Severe emphysema/COPD. Home O2 evaluation a the time of discharge; patient does not need oxygen at rest; patient is 2 L with activity.. (7) Impaired cognition: Code(s): R41.89 - Other symptoms and signs involving cognitive functions and awareness Status: Acute Assessment and Plan: Physical therapy and occupational therapy evaluation. Maintain fall precautions. (8) Anemia: Code(s): D64.9 - Anemia, unspecified Status: Acute Assessment and Plan: Iron stores on the low side. Continue ferrous sulfate a tablet p.o. b.i.d.. Patient given Venofer 100 mg IV x2 doses. Additional Plan # UTI ring cultures positive for Klebsiella sensitive to Rocephin. # Mild anemia: Mild decrease of hemoglobin from 10-9. Continue to monitor. Iron level was on the low side. Patient was not administered IV iron. # respiratory alkalosis CTA negative for PE # Recent history of spontaneous pneumothorax July 2021 # DVT prophylaxis on Xarelto which will be resumed # Full code status Subjective Date/time seen: 11/03/21 11:09 S: Patient was seen and examined at the bedside. She denies any complaints. Home O2 evaluation done. He needs 2 L of oxygen supplementation with activity. Review of Systems Review of Systems: All systems reviewed & are unremarkable except as noted in HPI and below Constitutional: Constitutional: Reports as per HPI, Reports no additional constitutional complaints, Reports fa
[2021-11-03] MEDS: IRON SUCROSE COMPLEX 100 MG in SODIUM CHLORIDE 0.9% IV 50 ML 220 MG IVPB (09:32)
[2021-11-03] MEDS: ESCITALOPRAM OXALATE 10 MG TABLET PO (09:33)
[2021-11-03] MEDS: FERROUS SULFATE 324 MG TABLET PO ×2 (09:33→17:20)
--- NOTE | 2021-11-03 11:46 | HOMEO2EVAL ---
Evaluation was performed at [facility] Home Oxygen Evaluation RC: Home Oxygen (O2) Evaluation Start: 11/02/21 16:04 Freq: ONCE Status: Active Protocol: RPE Activity Type Activity Date Activity User E-Sign Co-Sign Detail Recorded Client Recorded Date Recorded By Document 11/03/21 10:10 DJO [email or web address] 11/03/21 11:46 DJO Document 11/03/21 10:15 [email or web address] [email or web address] 11/03/21 11:46 DJO Document 11/03/21 10:20 [email or web address] [email or web address] 11/03/21 11:46 DJO Document 11/03/21 10:25 [email or web address] [email or web address] 11/03/21 11:46 DJO Document 11/03/21 10:35 [email or web address] [email or web address] 11/03/21 11:46 DJO 11/03/21 11/03/21 11/03/21 10:10 10:15 10:20 Home O2 Evaluation Test Phase Resting Exercise Exercise Oxygen Delivery Room Air Room Air Nasal Cannula Oxygen Flow Rate (L/min) 1 Pulse Oximetry (90-100 %) 91 86 L 88 L Pulse Rate (60-100 beats/min) 88 90 95 11/03/21 11/03/21 10:25 10:35 Home O2 Evaluation Test Phase Exercise Resting Oxygen Delivery Nasal Cannula Room Air Oxygen Flow Rate (L/min) 2 Pulse Oximetry (90-100 %) 90 90 Pulse Rate (60-100 beats/min) 96 87
[2021-11-03] MEDS: SODIUM CHLORIDE 0.9% IV 500 ML IV CONT ×2 (12:11→15:15)
--- NOTE | 2021-11-03 16:04 | PCRCNOTE ---
Window of time for administration has passed. See next scheduled administration.
[2021-11-03] MEDS: RIVAROXABAN 20 MG TABLET PO (17:20)
[2021-11-04] VITALS (16 sets, daily range): BP systolic 95–103; BP diastolic 39–63; PULSE 83–110; RESP 16–18; TEMP 36.8–37.6; O2SAT 92–97
[2021-11-04] MEDS: ALBUTEROL SULFATE NEB 2.5 MG/0.5 ML INH 5 MG INHALATION ×2 (02:26→12:40)
[2021-11-04] MEDS: IPRATROPIUM BR 0.02% INH SOLN 0.5 MG/2.5 ML VIAL INHALATION ×2 (02:27→12:40)
--- NOTE | 2021-11-04 09:49 | PCPTNOTE ---
Attempted to see patient for PT at this time, however unable due to patient eating her breakfast and asked if therapy can check back later. Will check back later if time allows.
[2021-11-04] MEDS: ESCITALOPRAM OXALATE 10 MG TABLET PO (09:57)
[2021-11-04] MEDS: IRON SUCROSE COMPLEX 100 MG in SODIUM CHLORIDE 0.9% IV 50 ML 220 MG IVPB (09:57)
[2021-11-04] MEDS: FERROUS SULFATE 324 MG TABLET PO ×2 (09:58→17:05)
--- NOTE | 2021-11-04 10:23 | PM.CNCAR ---
Assessment and Plan Additional Plan -chronic atrial fibrillation on Xarelto -hypotension -shortness of breath on admission multifactorial related to acute COPD exacerbation and evidence of some pulmonary edema on imaging. This is a 86-year-old lady with history of atrial fibrillation was admitted to the hospital shortness of breath. On CT scan of the thorax evidence of pulmonary edema and severe COPD. Consult was called because of low blood pressure. Both Lasix and metoprolol were held. On physical examination she appears to be euvolemic. No elevated JVP and no lower limb edema. Recommend to reduce metoprolol from 37.5 mg b.i.d. to 25 mg p.o. b.i.d. and hold it only if systolic blood pressure less than 85. Currently receiving IV iron because of anemia. At this time she is receiving Xarelto 20 mg daily however she is 86 with the creatinine clearance of 30 and in setting of anemia I recommend that we reduce it to 15 mg daily. In regards to Lasix recommend that we discontinue it at this time. Suspect that the major issue here his COPD. Echocardiogram shows normal LV systolic function. History of Present Illness History of Present Illness Consult date/time: 11/04/21 10:23 Requesting physician: Kae Trotter MD Consult reason: atrial fibrillation Reason For Visit: Dyspnea, Hypoxia, CHF, pneumonia Narrative: This is a 86-year-old female with past history of paroxysmal atrial fibrillation, severe COPD not on home oxygen, recent pneumothorax who presents to the hospital on October 31, 2021 complaining of shortness of breath. She is being treated for bilateral pneumonia . Currently lying in bed comfortably. She is not oriented to time or person. She is pleasant. Proximal vertebral without shortness of breath or lower limb edema. She denies chest pain. Heart rate in telemetry between 90-110 and in AFib. Apparently the metoprolol 37.5 mg b.i.d. was held on multiple occasions due to low blood pressure. There is an order to receive Lasix 20 mg daily however it has been held today and yesterday. CTA thorax ruled out pulmonary embolism it shows moderate pulmonary edema possible pneumonia. EKG reviewed and as myself shows atrial fibrillation at heart rate 96 beats per minute, nonspecific ST changes. Potassium on admission was 3.1, creatinine on admission 1.1 and today 1.2. COVID negative Echo done during this admission showed ejection fraction 65-70% and mild left atrial enlargement, mild tricuspid and mitral regurgitation. Review of Systems Constitutional: Constitutional: Denies chills, Denies fever(s), Denies poor appetite and Reports weakness Eyes: Eyes: Denies eye discharge, Denies loss of vision, Denies eye pain and Denies photophobia ENT: Denies dizziness, Denies epistaxis, Denies nasal congestion and Denies sore throat Cardiovascular: Cardiovascular: Denies chest pain, Denies syncope, Denies pedal edema, Denies leg edema, Denies palpitations, Denies dyspnea, Denies dyspnea on exertion and Denies orthopnea Respiratory: Respiratory: Denies cough, Denies dyspnea, Denies dyspnea on exertion and Denies wheezing Gastrointestinal: Gastrointestinal: Denies abdominal pain, Denies diarrhea, Denies nausea and Denies vomiting Genitourinary: Genitourinary: Denies hematuria, Denies genital lesions and Denies dysuria Musculoskeletal: Musculoskeletal: Denies arthralgias, Denies joint swelling and Denies numbness Integumentary/Breasts: Skin/Breast: Denies pruritus and Denies rash Neurologic: Denies dizziness, Denies syncope, Denies loss of vision and Denies numbness Psychiatric: Psychiatric: Denies anxiety and Denies depression Endocrine: Endocrine: Denies cold intolerance, Denies heat intolerance and Denies palpitations Hematologic/Lymphatic: Hematologic/Lymphatic: Denies easy bleeding and Denies easy bruising Allergic/Immunologic: Allergic/Immunologic: Denies urticaria and Denies wheezing PMFSH Past Medical History Medical History (Rev
--- NOTE | 2021-11-04 10:59 | PCRCNOTE ---
Window of time for administration has passed. See next scheduled administration.
[2021-11-04] MEDS: METOPROLOL TARTRATE 25 MG TABLET PO ×2 (13:27→21:32)
[2021-11-04] MEDS: RIVAROXABAN 15 MG TABLET PO (17:05)
--- NOTE | 2021-11-04 17:28 | PM.IMPN ---
Progress Note: A&P Assessment and Plan (1) Acute dyspnea: Code(s): R06.00 - Dyspnea, unspecified Status: Acute Assessment and Plan: .Acute hypoxic respiratory failure oxygen supplementation CTA negative for PE. D-dimer was elevated.Resolving with antibiotic treatment of pneumonia Continue treatment for pneumonia and oxygen supplementation. Home O2 evaluation. Plan for discharge today. Patient does not require oxygen at rest. She requires 2 L of oxygen with activity. (2) Pneumonia: Qualifiers: Laterality: unspecified laterality Lung location: unspecified part of lung Pneumonia type: due to unspecified organism Qualified Code(s): J18.9 - Pneumonia, unspecified organism Code(s): J18.9 - Pneumonia, unspecified organism Status: Acute Assessment and Plan: Bilateral pneumonia: Patient is improving on azithromycin ceftriaxone as ordered bronchodilators, COVID swab negative. Fully vaccinated. Continue IV antibiotics. Patient can be discharged on a 5 day course of augmentin. (3) Acute respiratory failure with hypoxia: Code(s): J96.01 - Acute respiratory failure with hypoxia Status: Acute Assessment and Plan: Currently with mild oxygen requirement 1.5 L. Perform home O2 evaluation within the next 48 hours. (4) CHF (congestive heart failure): Qualifiers: Heart failure chronicity: unspecified Heart failure type: unspecified Qualified Code(s): I50.9 - Heart failure, unspecified Code(s): I50.9 - Heart failure, unspecified Status: Acute Assessment and Plan: Congestive heart failure, acute on chronic, started on Lasix 40 mg IV b.i.d. follow-up echocardiogram in a.m.. Elevated BNP at 7260. Currently patient relatively euvolemic. Stop IV Lasix.. P.o. Lasix 20 mg daily today.Currently comfortable on room air and tolerating decubitus position. (5) Atrial fibrillation: Qualifiers: Atrial fibrillation type: unspecified chronic Qualified Code(s): I48.20 - Chronic atrial fibrillation, unspecified Code(s): I48.91 - Unspecified atrial fibrillation Status: Acute Assessment and Plan: Relatively hypotensive and intermittently tachycardic. Reduce metoprolol to 25 mg p.o. b.i.d.. Continue Xarelto. Blood pressure slightly better today, retro systolic remain in the 90s. (6) COPD (chronic obstructive pulmonary disease): Code(s): J44.9 - Chronic obstructive pulmonary disease, unspecified Status: Acute Assessment and Plan: Severe emphysema/COPD. Home O2 evaluation a the time of discharge; patient does not need oxygen at rest; patient is 2 L with activity.. (7) Impaired cognition: Code(s): R41.89 - Other symptoms and signs involving cognitive functions and awareness Status: Acute Assessment and Plan: Physical therapy and occupational therapy evaluation. Maintain fall precautions. (8) Anemia: Code(s): D64.9 - Anemia, unspecified Status: Acute Assessment and Plan: Iron stores on the low side. Continue ferrous sulfate a tablet p.o. b.i.d.. Patient given Venofer 100 mg IV x2 doses. Continue daily IV Venofer as tolerated. Additional Plan # UTI ring cultures positive for Klebsiella sensitive to Rocephin. # Mild anemia: Mild decrease of hemoglobin from 10-9. Continue to monitor. Iron level was on the low side. Patient was administered IV iron. # respiratory alkalosis CTA negative for PE # Recent history of spontaneous pneumothorax July 2021 # DVT prophylaxis on Xarelto which will be resumed # Full code status Subjective Date/time seen: 11/04/21 15:28 S: Patient was examined at the bedside. She denies any complaints. She looks comfortable. Blood pressure remains soft. Review of Systems Review of Systems: All systems reviewed & are unremarkable except as noted in HPI and below Constitutional: Constitutional: Reports as per HPI, Reports no additional c
[2021-11-05] VITALS (10 sets, daily range): BP systolic 90–95; BP diastolic 63; PULSE 77–101; RESP 14–18; TEMP 37.1; O2SAT 90–97
[2021-11-05] MEDS: ALBUTEROL SULFATE NEB 2.5 MG/0.5 ML INH 5 MG INHALATION ×2 (02:33→09:16)
[2021-11-05] MEDS: IPRATROPIUM BR 0.02% INH SOLN 0.5 MG/2.5 ML VIAL INHALATION ×2 (02:33→09:16)
[2021-11-05] MEDS: ESCITALOPRAM OXALATE 10 MG TABLET PO (08:00)
[2021-11-05] MEDS: FERROUS SULFATE 324 MG TABLET PO (08:00)
[2021-11-05] MEDS: IRON SUCROSE COMPLEX 100 MG in SODIUM CHLORIDE 0.9% IV 50 ML 220 MG IVPB (08:07)
--- NOTE | 2021-11-05 10:16 | PM.DS ---
DS: Admitting Diagnosis Discharge Date Acute respiratory failure with hypoxia Atrial fibrillation Pneumonia UTI Admitting Diagnosis Acute respiratory failure With hypoxia Atrial fibrillation Pneumonia UTI DS: Discharge Diagnosis Discharge Diagnosis (1) CHF (congestive heart failure): Qualifiers: Heart failure chronicity: unspecified Heart failure type: unspecified Qualified Code(s): I50.9 - Heart failure, unspecified Code(s): I50.9 - Heart failure, unspecified Status: Acute Assessment and Plan: Possible fluid overload on admission. On echocardiogram there is good systolic function of all segments with ejection fraction 65-70%. The left ventricular diastolic function is normal. There is no pulmonary hypertension. Echocardiogram 11/01/2021. Summary 1. Complete two-dimensional, color flow and Doppler transthoracic echocardiogram is performed. 2. Normal left ventricular size with mild concentric hypertrophy. There is good systolic function of all segments with ejection fraction 65-70%. No wall motion abnormalities are present. Normal diastolic function. 3. Left atrial chamber dimension is mildly enlarged. 4. There is mild mitral valve regurgitation. 5. There is mild tricuspid valve regurgitation. 6. No pulmonary hypertension, estimated pulmonary arterial systolic pressure is 34 mmHg. 7. The rhythm appears to be atrial fibrillation. Left Ventricle Left ventricular chamber dimension is normal. Left ventricular systolic function is normal, estimated at 60-65%. There is mildly increased left ventricular wall thickness. Left ventricular septal wall motion is normal. The left ventricular diastolic function is normal. Right Ventricle Right ventricular chamber dimension is normal. Right ventricular systolic function is normal. Left Atria Left atrial chamber dimension is mildly enlarged. Right Atria Right atrial chamber dimension is normal. Aortic Valve The aortic valve is trileaflet. There is no aortic valve sclerosis. There is no aortic valve stenosis. There is no aortic valve regurgitation. Pulmonic Valve The pulmonic valve is normal. There is no pulmonic valve stenosis. There is no pulmonic regurgitation. Mitral Valve The mitral valve has normal leaflets. There is no mitral valve stenosis. There is mild mitral valve regurgitation. Tricuspid Valve The tricuspid valve leaflets are normal. There is no significant tricuspid valve stenosis. There is mild tricuspid valve regurgitation. No pulmonary hypertension, estimated pulmonary arterial systolic pressure is 34 mmHg. Pericardium/Pleural The pericardium appears normal. There is no pericardial effusion. Inferior Vena Cava Normal inferior vena cava with >50% collapse upon inspiration consistent with Empty right atrial pressure, 10 mmHg. Aorta The aortic root size at the sinus of Valsalva is normal. The prox ascending aorta size is normal. DS: Summary Hospital Course Reason for hospitalization: Acute respiratory failure with hypoxia Pneumonia UTi Atrial fibrillation Hospital Course: Elderly patient 86 years old female was admitted complains shortness of breath. Patient was found to have acute respiratory failure with hypoxia. Possible pneumonia and UTI patient also have atrial fibrillation. Patient was given antibiotics and culture were done urine culture shows patient has Klebsiella infection. Sensitive to Augmentin. Patient was also given oxygen in the stay in the hospital. With atrial fibrillation patient was given Xarelto. Today patient is stable patient discharged home in stable condition follow-up scheduled with primary care physician outpatient next week heart rate was controlled with med flow Time spent discussing smoking cessation with patient: 3 to 10 minutes Status at Discharge Cognitive/behavioral status at discharge: Stable Functional st
--- NOTE | 2021-11-05 11:25 | PM.PNCARD ---
Progress Note: A&P Assessment and Plan (1) Atrial fibrillation: Qualifiers: Atrial fibrillation type: unspecified chronic Qualified Code(s): I48.20 - Chronic atrial fibrillation, unspecified Code(s): I48.91 - Unspecified atrial fibrillation Status: Acute Assessment and Plan: Continue metoprolol (2) CHF (congestive heart failure): Qualifiers: Heart failure chronicity: unspecified Heart failure type: unspecified Qualified Code(s): I50.9 - Heart failure, unspecified Code(s): I50.9 - Heart failure, unspecified Status: Acute Assessment and Plan: continue metoprolol. This is diastolic in etiology. Will resume her low-dose furosemide which she was stable on home 20 mg daily. (3) COPD (chronic obstructive pulmonary disease): Code(s): J44.9 - Chronic obstructive pulmonary disease, unspecified Status: Acute (4) Anemia: Code(s): D64.9 - Anemia, unspecified Status: Acute Assessment and Plan: Received IV iron Subjective Date/time seen: 11/05/21 11:25 Interval history: 86-year-old admitted for shortness of breath Date of service 11/05/2021: Feels okay. Not on home oxygen at rest. No chest pain or shortness of breath. Review of Systems Constitutional: Constitutional: Denies chills, Denies fever(s), Denies poor appetite and Reports weakness Eyes: Eyes: Denies eye discharge, Denies loss of vision, Denies eye pain and Denies photophobia ENT: Denies dizziness, Denies epistaxis, Denies nasal congestion and Denies sore throat Cardiovascular: Cardiovascular: Denies chest pain, Denies syncope, Denies pedal edema, Denies leg edema, Denies palpitations, Denies dyspnea, Denies dyspnea on exertion and Denies orthopnea Respiratory: Respiratory: Denies cough, Denies dyspnea, Denies dyspnea on exertion and Denies wheezing Gastrointestinal: Gastrointestinal: Denies abdominal pain, Denies diarrhea, Denies nausea and Denies vomiting Genitourinary: Genitourinary: Denies hematuria, Denies genital lesions and Denies dysuria Musculoskeletal: Musculoskeletal: Denies arthralgias, Denies joint swelling and Denies numbness Integumentary/Breasts: Skin/Breast: Denies pruritus and Denies rash Neurologic: Denies dizziness, Denies syncope, Denies loss of vision, Denies numbness and Reports weakness Psychiatric: Psychiatric: Denies anxiety and Denies depression Endocrine: Endocrine: Denies cold intolerance, Denies heat intolerance and Denies palpitations Hematologic/Lymphatic: Hematologic/Lymphatic: Denies easy bleeding and Denies easy bruising Allergic/Immunologic: Allergic/Immunologic: Denies urticaria and Denies wheezing Exam Const: General: cooperative, comfortable, no acute distress, alert and awake Nutritional Appearance: well nourished Orientation/consciousness: patient oriented x3 HENMT: Head: normal to inspection, normocephalic and atraumatic Ears: hearing grossly normal bilaterally General nose exam: Normal external nose present, Normal nares present and no nasal discharge noted Face and sinus: normal facial exam and no erythema Mouth: No drooling and No restricted motion Eyes: General: appearance normal, both eyes and all related structures Alignment and Position: position normal Conjunctivae: conjunctivae normal Sclera: sclerae normal Direct Ophthalmoscopy: No photophobia Neck: Neck: normal visual inspection and no JVD Thyroid: thyroid normal Carotids: no bruits Lymphatic: lymphedema not noted Chest: Chest palpation & inspection: normal inspection of the chest and no tenderness Resp: Effort & Inspection: normal respiratory effort and no nasal flaring Auscultation: clear to auscultation bilaterally, no crackles, no rales and no wheezes Cardio: Jugular venous distension: no JVD Rate: regular rate Rhythm: regular rhythm Heart sounds: S1 normal heart sound present, S2 normal heart sound present, no gallops, no murmurs and n
== END 2021-11-05 11:40 | disposition home or self-care (01) | DRG 193 ==
LOC: ANHED 23:42 → ANH3MEDSUR 10-30 11:25
PROVIDERS: Internal Medicine; Admitting Provider Internal Medicine; Emergency Provider Emergency Medicine; PCP Family Medicine Adolescent Medicine; Visit Provider Internal Medicine
DX: J18.9 Pneumonia, unspecified organism (principal); J96.01 Acute respiratory failure with hypoxia; I50.33 Acute on chronic diastolic (congestive) heart failure; E87.3 Alkalosis; I48.20 Chronic atrial fibrillation, unspecified; N39.0 Urinary tract infection, site not specified; B96.1 Klebsiella pneumoniae [K. pneumoniae] as the cause of diseases classified elsewhere; Z20.822 Contact with and (suspected) exposure to COVID-19; J43.9 Emphysema, unspecified; F03.90 Unspecified dementia, unspecified severity, without behavioral disturbance, psychotic disturbance, mood disturbance, and anxiety; D64.9 Anemia, unspecified; Z66 Do not resuscitate; Z79.01 Long term (current) use of anticoagulants; Z79.899 Other long term (current) drug therapy; Z88.0 Allergy status to penicillin; Z98.42 Cataract extraction status, left eye; Z98.41 Cataract extraction status, right eye; Z96.1 Presence of intraocular lens
CPT/HCPCS: 36415; 36600; 71045; 71275; 80048; 80053; 81001; 82607; 82746; 82805; 83540; 83550; 83605; 83735; 83880; 84484; 85025; 85027; 85610; 85730; 87040; 87077; 87086; 87088; 87186; 87426; 87804; 93005; 93306; 94640; 96365; 96366; 96367; 96375; 96376; 97110; 97116; 97161; 97165; 97530; 97535; 99285; A9270; C9803; G0378; J0456; J0696; J1756; J1940; J7040; Q9967; U0003; U0005

== ENCOUNTER 2021-11-24 12:14 | Emergency (ER) | payer MEDICARE, SELFPAY ==
--- NOTE | ~2021-11-24 | XR_ITS ---
EXAMINATION: XR chest 2V DATE: 11/24/2021 12:38 INDICATION: Shortness of breath. Weakness. Fatigue. TECHNIQUE: Frontal and lateral views of the chest were obtained. COMPARISON: Chest single view 10/29/2021, chest CT 10/30/2021 FINDINGS: The lungs are hyperexpanded with lucencies, consistent with emphysema. There is multifocal scarring in the lungs. There are airspace opacities in all left lung zones and right lower lung zone. There are small right and moderate-sized left pleural effusions. No pneumothorax. The heart size is normal. There is a chronic burst fracture of L1. There is a chronic compression fracture of T7. IMPRESSION: 1. Severe emphysema with multifocal scarring. 2. Airspace opacities in left lung and right lower lung zone with improvement from 10/29/2021, consis tent with atelectasis/scarring versus pneumonia. 3. Small right and moderate-sized left pleural effusions with worsening on the left from 10/29/2021. Reviewed, dictated and finalized at location B. MACHINE OPERATOR IMPRESSION: 1. Severe emphysema with multifocal scarring. 2. Airspace opacities in left lung and right lower lung zone with improvement f rom 10/29/2021, consistent with atelectasis/scarring versus pneumonia. 3. Small right and moderate-sized left pleural effusions with worsening on the left from 10/29/2021.
[2021-11-24 12:20] VITALS: BP 111/90; PULSE 136; RESP 18; TEMP 36.6; O2SAT 95
--- NOTE | 2021-11-24 12:25 | ECG_ITS ---
Measurements Intervals [place] Rate: 120 P: MN: 0 QRS: 50 QRSD: 73 T: -34 QT: 287 QTc: 406 Interpretive Statements ATRIAL FIBRILLATION WITH RAPID VENTRICULAR RESPONSE LOW QRS VOLTAGE IN LIMB LEADS BORDERLINE ST-T WAVE ABNORMALITY- DIFFUSE LEADS BASELINE ARTIFACT- II, III, AVR, AVF, V1 ABNORMAL ECG Electronically Signed On 11-24-2021 14:25:02 [employer] by Stanton Mckeon D.O.
--- NOTE | 2021-11-24 13:16 | ED.FALL ---
HPI - Fall General Chief Complaint: Fall Stated Complaint: WEAKNESS Time Seen by Provider: 11/24/21 12:44 History of Present Illness HPI Narrative: 86-year-old female presenting to the emergency department from home after calling for lift assist after a ground-level fall. Patient denied any complaints or injury from the fall. Patient's blood pressure was 80/50 on scene by EMS. Upon arrival to the emergency room patient's blood pressure is 111/90 but patient's heart rate is tachycardic. Patient does have a history of atrial fibrillation. Patient is on metoprolol and had not taken her morning medication. During examination patient denies any complaints and is unsure why she is in the department. Patient states that she does live at home with her daughter and her daughter helps to take care of her. Related Data Home Medications Medication Instructions Recorded Confirmed Xarelto 20 mg PO DAILY 10/29/21 10/30/21 escitalopram oxalate 10 mg PO DAILY 10/29/21 10/30/21 Allergies Allergy/AdvReac Type Severity Reaction Status Date / Time Penicillins Allergy Unknown Unknown Verified 10/29/21 21:10 Review of Systems Review of Systems: patient denies any complaint and is unsure why she is here. Patient denies falling and denies any injury. All systems reviewed & are unremarkable except as noted in HPI and below PMFSH Past Medical History Medical History Afib Anemia Back pain Depression Left elbow fracture Leg fracture, right Shingles UTI (urinary tract infection) Surgical History Surgical History History of appendectomy History of tonsillectomy Status post cataract extraction of both eyes with insertion of intraocular lens Family History Family History Father Acute myocardial infarction Mother Alcoholism Sibling Cirrhosis Social History Social History Social History: She is since 2017. Her oldest daughter Rose lives with her. She has had 3 daughters. 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 Lifelong nonsmoker, no alcohol or illicit drugs. Had heavy secondhand smoke exposure as a child and young adult. Code status: DNR/DNI per patient request. She states that she is lift a long full life and is not afraid of . Healthcare power of patent attorney: Rose (daughter) Smoking status: Never smoker Alcohol intake: never Substance use: never Substance use type: does not use Gender identity (if verbalized by the patient): Female Spiritual care concerns: No Agree to blood products: Yes Exam Narrative: APPEARANCE: Well appearing, no pain in distress, well-nourished. HEAD: normocephalic, atraumatic. EYES: PERRLA/EOMI, conjunctivae clear. NOSE: Normal no drainage EARS:TMS clear with good light reflex. THROAT: Pharynx clear, no exudate. NECK: Supple. No adenopathy, no masses. RESPIRATORY: Airway patent, respirations nonlabored. Clear to auscultation bilaterally, no rales, rhonchi, wheezing. CARDIOVASCULAR: Regular rate and rhythm without murmurs rubs or gallops. ABDOMINAL: Soft, nontender, nondistended, normal bowel sounds MUSCULOSKELETAL: Moves all extremities. Strength/ROM intact, No edema, No calf tenderness. NEURO: Alert. Cranial nerves II through XII intact. Good coordination SKIN: Warm, dry. Normal Color Course Reevaluation(s) Reevaluation #1: Patient denies any complaints at this time. Patient is still resting comfortably. Patient's heart rate is no longer after the IV fluids and PO metoprolol. Patient was able to ambulate at her baseline. BP improved. Heart not tachycardic. BNP is elevated but similar to previous values. Clinically patient is not in CHF exacerbation. Time: 16:05 Vital Signs Vital signs: Vital Signs Tempera
[2021-11-24] MEDS: SODIUM CHLORIDE 0.9% IV 1,000 ML 150 ML IV CONT (13:20)
[2021-11-24 13:33] LABS: Add Urine Microscopic? YES; Appearance Urine Cloudy (Clear); Bacteria Urine Trace /hpf; Bilirubin Urine Negative (Negative); Blood Urine Negative (Negative); Color Urine Yellow (Yellow); Glucose Urine UA 1+ mg/dL (Negative); Ketones Urine Negative (Negative); Leukocyte Esterase Ur Negative LEU/UL (Negative); Mucus Urine Few /lpf; Nitrate Urine Negative (Negative); Protein Urine 2+ mg/dL (Negative); Specific Grav Ur 1.012 (1.001-1.035); Squamous Epithelial Cell Urine Moderate /hpf (Few); Urobilinogen Urine Negative mg/dL (<2.0)
[2021-11-24 14:00] VITALS: BP 121/62; PULSE 129; RESP 18; O2SAT 98
[2021-11-24 14:54] LABS: Basophils Percent Auto 0.2 % (0.2-1.2); Eosinophils Percent Auto 0.2 % (0-4.4); Hemoglobin 12.9 g/dL (12.0-15.0); Immature Granulocyte Absolute 0.06 K/mm3 (0.00-0.031); Immature Granulocyte Percent A 0.9 % (0-0.5); Lymphocytes Absolute Auto 0.85 K/mm3 (0.9-3.2); Lymphocytes Percent Auto 13.1 % (18.3-44.2); Mean Corpuscular HGB Conc 30.7 g/dl (32-36); Mean Corpuscular Hemoglobin 28.7 pg (26-34); Mean Corpuscular Volume 93.3 fl (80-100); Mean Platelet Volume 10.2 fl (7.4-10.4); Monocytes Absolute Auto 0.5 K/mm3 (0.1-0.6); Neutrophils Percent Auto 77.6 % (45.5-73.1); Platelet Count Result 341 k/mm3 (150-375); White Blood Count 6.5 K/mm3 (4.5-10.0)
[2021-11-24 15:00] VITALS: PULSE 127
[2021-11-24] MEDS: METOPROLOL TARTRATE TAB 25 MG, METOPROLOL TARTRATE TAB 12.5 MG 37.5 MG PO (15:00)
[2021-11-24 16:52] VITALS: BP 105/66; PULSE 97; RESP 16; O2SAT 97
[2021-11-24 17:05] LABS: Alanine Aminotransferase 20 U/L (4-35); Albumin Level 2.9 g/dL (3.5-5.1); Alkaline Phosphatase 115 U/L (38-126); Anion Gap 5 mmol/L (8-16); Aspartate Amino Transferase 41 U/L (14-36); Bilirubin,Total 0.3 mg/dL (0.2-1.3); Blood Urea Nitrogen 16 mg/dL (7-17); Calcium 8.2 mg/dL (8.4-10.2); Carbon Dioxide 30 mmol/L (22-30); Chloride 102 mmol/L (98-107); Estimated CRCL calculation 31 ml/min; Estimated Glomerular Filt Rate 60; Glucose 114 mg/dL (65-110); Potassium 3.7 mmol/L (3.4-5.0); Sodium 137 mmol/L (137-145)
[2021-11-24 17:13] LABS: NT Pro B Type Natriuretic Pept 2640 pg/mL (5-100)
--- NOTE | 2021-11-24 17:25 | PC.NURSE ---
This nurse called pt daughter Angi for update to get a ride for the pt. Angi will call back when she is in contact with pt other daughter, Francy, to procure a ride for pt.
[2021-11-24 18:01] VITALS: BP 104/71; PULSE 98; RESP 19; O2SAT 97
[2021-11-24 20:01] VITALS: BP 100/69; PULSE 96; RESP 18; O2SAT 98
== END 2021-11-24 20:04 | disposition home or self-care (01) ==
PROVIDERS: Emergency Provider Emergency Medicine; PCP Family Medicine Adolescent Medicine
DX: I48.91 Unspecified atrial fibrillation (principal); I95.9 Hypotension, unspecified; F32.A Depression, unspecified; Z79.01 Long term (current) use of anticoagulants; Z86.2 Personal history of diseases of the blood and blood-forming organs and certain disorders involving the immune mechanism; Z87.440 Personal history of urinary (tract) infections; J43.9 Emphysema, unspecified; Z98.42 Cataract extraction status, left eye; Z98.41 Cataract extraction status, right eye; Z96.1 Presence of intraocular lens; Z66 Do not resuscitate; R94.31 Abnormal electrocardiogram [ECG] [EKG]; J90 Pleural effusion, not elsewhere classified; W19.XXXA Unspecified fall, initial encounter
CPT/HCPCS: 36415; 71046; 80053; 81001; 83880; 85025; 93005; 96360; 96361; 99283; A9270; J7030

== ENCOUNTER 2021-11-27 09:02 | Inpatient (IN) | payer MEDICARE, SELFPAY ==
[2021-11-27] VITALS (55 sets, daily range): BP systolic 86–112; BP diastolic 48–76; PULSE 89–139; RESP 13–29; TEMP 35.9–36.8; O2SAT 85–100; BMI 22.5
--- NOTE | ~2021-11-27 | XR_ITS ---
XR chest 1V portable 11/27/2021 12:43 Indication: Shortness of breath. Chest pain. Procedure: AP portable chest Comparison: Comparison to multiple prior studies sequentially, with oldest reviewed study dated 07/31. Findings: Bilateral pleural effusions. Emphysema. There are patchy bilateral infiltrates affecting th e lower lungs and left midlung which may represent atelectasis/scarring and/or pneumonia. Cardiomegal y. Impression: 1: Patchy bilateral infiltrates, suspicious for pneumonia and/or atelectasis/scarring. 2: Small pleural effusions unchanged. Reviewed, dictated and finalized at location A. LE FEEDER Impression: 1: Patchy bilateral infiltrates, suspicious for pneumonia and/or atelectasis/sc arring. 2: Small pleural effusions unchanged.
--- NOTE | 2021-11-27 09:17 | ECG_ITS ---
Measurements Intervals [place] Rate: 130 P: AK: 0 QRS: 20 QRSD: 74 T: 84 QT: 333 QTc: 490 Interpretive Statements ATRIAL FIBRILLATION WITH RAPID VENTRICULAR RESPONSE LOW QRS VOLTAGE IN LIMB LEADS BORDERLINE ST-T WAVE ABNORMALITY- DIFFUSE LEADS BASELINE ARTIFACT- I, II, III, AVR, AVL, AVF, V1-V6 ABNORMAL ECG Electronically Signed On 11-27-2021 14:08:58 PSYCHOLOGY ASSOCIATE by Stanton Mckeon D.O.
--- NOTE | 2021-11-27 09:47 | ED.GENADULT ---
HPI - General Adult General Chief complaint: Weakness Stated complaint: WEAKNESS Time Seen by Provider: 11/27/21 09:21 Source: patient and EMS Mode of arrival: EMS Limitations: no limitations History of Present Illness HPI narrative: Patient is an 86-year-old female, with history of CHF, respiratory failure, atrial fib brought in by EMS after daughter called due to generalized weakness. According to EMS when they arrived patient's blood pressure was low at 76/58, was given 150 cc of IV bolus and patient's blood pressure went up to 108/62. Patient is on Lasix and metoprolol which could lower her blood pressure. Patient was seen here 3 days ago for similar complaints, hypotension and atrial fib with RVR. Patient upon arrival is alert and awake and oriented x2 which is her baseline. Patient has no complaints, I feel fine . Patient denies any headache, dizziness, weakness, chest pain, shortness of breath, abdominal pain, nausea, vomiting, diarrhea, fever or chills. Related Data Home Medications Medication Instructions Recorded Confirmed Xarelto 20 mg PO DAILY 10/29/21 10/30/21 escitalopram oxalate 10 mg PO DAILY 10/29/21 10/30/21 Allergies Allergy/AdvReac Type Severity Reaction Status Date / Time Penicillins Allergy Unknown Unknown Verified 11/27/21 09:23 Review of Systems Review of Systems: All systems reviewed & are unremarkable except as noted in HPI and below Constitutional: Constitutional: Denies body ache(s), Denies chills, Denies excessive sweating, Denies fatigue, Denies fever(s), Denies headache(s), Denies lethargy, Denies malaise, Denies weakness and Denies weight loss Eyes: Eyes: Denies blurry vision, Denies change in vision and Denies loss of vision ENT: Denies dizziness, Denies ear discharge, Denies headache(s), Denies lip swelling, Denies epistaxis, Denies nasal congestion, Denies neck pain, Denies throat swelling and Denies tongue swelling Cardiovascular: Cardiovascular: Denies chest pain, Denies chest pain at rest, Denies chest pain with activity, Denies diaphoresis, Denies rapid heart rate, Denies edema, Denies irregular heart rhythm, Denies lightheadedness, Denies palpitations, Denies dyspnea and Denies dyspnea on exertion Respiratory: Respiratory: Denies chest congestion, Denies cough, Denies hemoptysis, Denies dyspnea and Denies dyspnea on exertion Gastrointestinal: Gastrointestinal: Denies abdominal pain, Denies melena, Denies hematochezia, Denies diarrhea, Denies nausea, Denies vomiting and Denies hematemesis Musculoskeletal: Musculoskeletal: Denies abnormal gait, Denies deformity, Denies joint swelling, Denies limited range of motion, Denies neck pain and Denies numbness Neurologic: Denies Abnormal speech present, Denies abnormal gait, Denies confusion, Denies dizziness, Denies headache(s), Denies focal weakness, Denies loss of vision, Denies numbness, Denies Other visual disturbances, Denies Sensory deficit (Neuro) and Denies weakness Psychiatric: Psychiatric: Denies confusion, Denies depression, Denies auditory hallucinations, Denies homicidal ideation and Denies suicidal ideation Endocrine: Endocrine: Denies cold intolerance, Denies excessive sweating, Denies fatigue, Denies heat intolerance and Denies palpitations Hematologic/Lymphatic: Hematologic/Lymphatic: Denies easy bleeding and Denies easy bruising Allergic/Immunologic: Allergic/Immunologic: Denies lip swelling, Denies throat swelling and Denies tongue swelling PMFSH Past Medical History Medical History Afib Anemia Back pain Depression Left elbow fracture Leg fracture, right Shingles UTI (urinary tract infection) Surgical History Surgical History History of appendectomy History of tonsillectomy Status post cataract extraction of both eyes with insertion of intraocular lens Family History Family History (Reviewed 11/27/21
[2021-11-27 10:03] LABS: Basophils Percent Auto 0.3 % (0.2-1.2); Eosinophils Absolute Auto 0.1 K/mm3 (0-0.3); Eosinophils Percent Auto 1.7 % (0-4.4); Hematocrit 44.5 % (37.0-47.0); Hemoglobin 13.6 g/dL (12.0-15.0); Immature Granulocyte Absolute 0.04 K/mm3 (0.00-0.031); Immature Granulocyte Percent A 0.7 % (0-0.5); Lymphocytes Absolute Auto 1.17 K/mm3 (0.9-3.2); Lymphocytes Percent Auto 19.6 % (18.3-44.2); Mean Corpuscular HGB Conc 30.6 g/dl (32-36); Mean Corpuscular Hemoglobin 28.4 pg (26-34); Mean Corpuscular Volume 92.9 fl (80-100); Mean Platelet Volume 10.3 fl (7.4-10.4); Monocytes Absolute Auto 0.5 K/mm3 (0.1-0.6); Monocytes Percent Auto 8.5 % (2.6-8.5); Neutrophils Absolute Auto 4.1 K/mm3 (1.3-6.7); Neutrophils Percent Auto 69.2 % (45.5-73.1); Platelet Count Result 355 k/mm3 (150-375); Red Blood Count 4.79 M/mm3 (4.2-5.4); Red Cell Distribution Width 17.6 % (11.5-14.5)
[2021-11-27] MEDS: dilTIAZem HCl INJ 25 MG/5 ML VIAL 10 MG IV PUSH (10:08)
[2021-11-27 10:13] LABS: INR 1.3; Prothrombin Time 16.4 Seconds (11.1-14.7)
[2021-11-27 10:14] LABS: Partial Thromboplastin Time 36.2 SECONDS (22.3-36.8)
[2021-11-27 10:26] LABS: Alanine Aminotransferase 21 U/L (4-35); Albumin Level 3.5 g/dL (3.5-5.1); Alkaline Phosphatase 139 U/L (38-126); Anion Gap 9 mmol/L (8-16); Aspartate Amino Transferase 45 U/L (14-36); Bilirubin,Total 0.8 mg/dL (0.2-1.3); Blood Urea Nitrogen 12 mg/dL (7-17); Calcium 8.5 mg/dL (8.4-10.2); Carbon Dioxide 23 mmol/L (22-30); Chloride 105 mmol/L (98-107); Estimated CRCL calculation 41 ml/min; Estimated Glomerular Filt Rate > 60; Glucose 121 mg/dL (65-110); Potassium 3.7 mmol/L (3.4-5.0); Sodium 137 mmol/L (137-145)
--- NOTE | 2021-11-27 10:26 | PC.NURSE ---
500mL bolus of normal saline infusing IV per EDP CHERIE mccormack.
[2021-11-27 10:36] LABS: Troponin I < 0.012 ng/mL (0.000-0.034)
[2021-11-27 12:17] LABS: Add Urine Microscopic? YES; Appearance Urine Cloudy (Clear); Bilirubin Urine Negative (Negative); Blood Urine Negative (Negative); Budding Yeast Urine Present /hpf; Color Urine Yellow (Yellow); Glucose Urine UA Negative (Negative); Ketones Urine Negative (Negative); Leukocyte Esterase Ur 3+ LEU/UL (Negative); Mucus Urine Few /lpf; Nitrate Urine Negative (Negative); Protein Urine 1+ mg/dL (Negative); Specific Grav Ur 1.014 (1.001-1.035); Squamous Epithelial Cell Urine Occasional /hpf (Few); WBC Urine >75 /hpf
--- NOTE | 2021-11-27 14:00 | PM.IMHP ---
H&P: HPI History of Present Illness Date/Time: 11/27/21 14:00 this is an 86-year-old female patient who resides with her family she has a past medical history of congestive heart failure, respiratory failure and atrial fibrillation. Her daughter activated the EMS system because the patient was complaining of generalized weakness. The patient had a blood pressure of 76/58 upon EMS arrival. The patient was then given IV fluids and brought upper blood pressure of 108/62. She was only given 150 cc of IV bolus. The patient had been here 3 days ago for similar complaint with is hypertension in AFib without AVR. The patient is on oxygen at 2 L per nasal cannula the nurse tells me that the patient wears oxygen at home the patient stated she did not know which she wore oxygen at home or not. The patient denied any nausea vomiting diarrhea. No complaints of chest pain. No complaints of any dizziness or weakness while she is here. Her chest x-ray was read as patchy bilateral infiltrates, suspicious for pneumonia and/or atelectasis/scarring. Small pleural effusions unchanged. The patient had been on Augmentin for pneumonia. Her chest x-ray is unchanged from 1 month ago. The patient was found have a urinary tract infection and was started on Rocephin. The patient had been given a 1 time dose of Cardizem for AFib with RVR with heart rate in the 1 teens. Blood pressure has improved to 110/72. The patient is being admitted to observation status on the date of service of 11/27/2021. Chief Complaint: Weakness Review of Systems Review of Systems: All systems reviewed & are unremarkable except as noted in HPI and below Constitutional: Constitutional: Reports as per HPI and Reports no additional constitutional complaints Eyes: Eyes: Reports as per HPI and Reports no additional eye complaints ENT: Reports system reviewed and no additional complaints, except as documented and Reports Normal hearing present Cardiovascular: Cardiovascular: Reports no additional cardiovascular complaints Respiratory: Respiratory: Reports no additional respiratory complaints and Reports no additional respiratory complaints Gastrointestinal: Gastrointestinal: Reports as per HPI and Reports no additional gastrointestinal complaints Musculoskeletal: Musculoskeletal: Reports no additional musculoskeletal complaints Integumentary/Breasts: Skin/Breast: Reports system reviewed and no additional complaints, except as docu and Reports as per HPI Neurologic: Reports system reviewed and no additional complaints, except as documented, Reports as per HPI and Reports Normal hearing present Psychiatric: Psychiatric: Reports no additional psychiatric complaints and Reports as per HPI Endocrine: Endocrine: Reports no additional endocrine complaints Hematologic/Lymphatic: Hematologic/Lymphatic: Reports no additional hematologic/lymphatic complaints Allergic/Immunologic: Allergic/Immunologic: Reports no additional allergic/immunologic complaints [facility] Past Medical History Medical History (Updated 11/27/21 @ 15:45 by Nhi Ramsey NP) Afib Anemia Back pain Depression Left elbow fracture Leg fracture, right Shingles UTI (urinary tract infection) Surgical History Surgical History History of appendectomy History of tonsillectomy Status post cataract extraction of both eyes with insertion of intraocular lens Family History Family History Father Acute myocardial infarction Mother Alcoholism Sibling Cirrhosis Social History Social History (Updated 11/27/21 @ 15:35 by Nhi Ramsey NP) Social History: She is since 2017. Her oldest daughter Rose lives with her. She has had 3 daughters. 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 Lifelong nonsmoker, no alcohol or illicit drugs. Had heavy secondhand smoke exposure
[2021-11-27 16:50] LABS: Influenza A QL RT-PCR Negative (Negative); Influenza B QL RT-PCR Negative (Negative); SARS-CoV-2 RNA PCR Negative
[2021-11-27] MEDS: SODIUM CHLORIDE 0.9% IV 1,000 ML 30 ML IV CONT (19:06)
[2021-11-27] MEDS: dilTIAZem 100 MG/100 ML 100 MG/100 ML BAG IV CONT (19:06)
--- NOTE | 2021-11-27 19:47 | ADMGEN ---
This patient, Mónica Blum, was admitted to IMU Room 210-01. Patient/family oriented to hospital policies and general routines including ID bracelet, bed and alarms, visiting hours, pain management, procedures, bathroom and other care routines, personal items, smoking policy, room service/diet, and visiting hours. Information on how to activate the Rapid Response Team has been discussed. Patient/Family are encouraged to report perceived risks to care and to ask questions if they do not understand what they are told or what they should do.
[2021-11-28] VITALS (16 sets, daily range): BP systolic 98–110; BP diastolic 60–71; PULSE 84–128; RESP 12–18; TEMP 35.7–36.9; O2SAT 94–97
[2021-11-28 05:44] LABS: Basophils Percent Auto 0.2 % (0.2-1.2); Eosinophils Absolute Auto 0.1 K/mm3 (0-0.3); Eosinophils Percent Auto 2.4 % (0-4.4); Hematocrit 38.8 % (37.0-47.0); Immature Granulocyte Absolute 0.03 K/mm3 (0.00-0.031); Immature Granulocyte Percent A 0.7 % (0-0.5); Lymphocytes Absolute Auto 1.04 K/mm3 (0.9-3.2); Mean Corpuscular HGB Conc 30.9 g/dl (32-36); Mean Corpuscular Hemoglobin 28.6 pg (26-34); Mean Corpuscular Volume 92.4 fl (80-100); Mean Platelet Volume 9.7 fl (7.4-10.4); Monocytes Absolute Auto 0.6 K/mm3 (0.1-0.6); Monocytes Percent Auto 13.3 % (2.6-8.5); Neutrophils Absolute Auto 2.7 K/mm3 (1.3-6.7); Neutrophils Percent Auto 60.4 % (45.5-73.1); Platelet Count Result 275 k/mm3 (150-375); Red Cell Distribution Width 17.3 % (11.5-14.5); White Blood Count 4.5 K/mm3 (4.5-10.0)
[2021-11-28 06:09] LABS: Lactic Acid Reflex 0.9 mmol/L (0.7-2.1)
[2021-11-28 06:12] LABS: Alanine Aminotransferase 16 U/L (4-35); Albumin Level 2.6 g/dL (3.5-5.1); Alkaline Phosphatase 119 U/L (38-126); Anion Gap 7 mmol/L (8-16); Aspartate Amino Transferase 32 U/L (14-36); Bilirubin,Total 0.6 mg/dL (0.2-1.3); Blood Urea Nitrogen 14 mg/dL (7-17); CRP 5.5 mg/dL (<1.0); Calcium 8.2 mg/dL (8.4-10.2); Carbon Dioxide 26 mmol/L (22-30); Chloride 104 mmol/L (98-107); Estimated CRCL calculation 53 ml/min; Estimated Glomerular Filt Rate > 60; Glucose 78 mg/dL (65-110); Magnesium 1.7 mg/dL (1.6-2.3); Potassium 3.4 mmol/L (3.4-5.0); Sodium 137 mmol/L (137-145)
--- NOTE | 2021-11-28 09:44 | PM.CNCAR ---
Assessment and Plan Assessment and plan (1) Atrial fibrillation with RVR: Code(s): I48.91 - Unspecified atrial fibrillation Status: Acute Assessment and Plan: Patient has persistent atrial fibrillation, attempting rate control and anticoagulation strategy (Xarelto at appropriate dose). Patient has persistent low blood pressure makes it difficult to use the usual medications for AFib rate control which aggravate low blood pressure. Other options would be amiodarone or digoxin; the latter is problematic because of toxicity. The former can also be problematic but is likely the best option. Will switch to amiodarone for heart rate control. Discussed with patient's daughter including some of the long-term problems with amiodarone and she agrees to whatever we think is best. (2) Hypotension: Qualifiers: Hypotension type: unspecified hypotension type Qualified Code(s): I95.9 - Hypotension, unspecified Code(s): I95.9 - Hypotension, unspecified Status: Acute Assessment and Plan: Apparently has had low blood pressure ?all her life? but this has been more problem recently because it leads to hypotension, weakness and falls. Doubt is related to a specific problem such as dehydration (long-term problem, BUN and creatinine are okay) or acute infection Let us try midodrine. (3) History of CHF (congestive heart failure): Code(s): Z86.79 - Personal history of other diseases of the circulatory system Status: Acute Assessment and Plan: Euvolemic at this time (4) COPD (chronic obstructive pulmonary disease): Code(s): J44.9 - Chronic obstructive pulmonary disease, unspecified Status: Acute Assessment and Plan: COPD appears stable. History of Present Illness History of Present Illness Consult date/time: 11/28/21 09:44 Requesting physician: Donato Light MD Consult reason: atrial fibrillation Reason For Visit: Atrial for w/RVR, hypertension, CHF Narrative: Mónica Blum is an 86-year-old female whom we were asked to see at the request of Dr. Light and the hospitalist for our advice and opinion regarding her AFib RVR in consultation. She has a history of atrial fibrillation (followed by Dr. Minaya) treated with metoprolol and Xarelto and COPD on home O2. Ms Blum was hospitalized in July for spontaneous pneumothorax requiring a chest tube. She was hospitalized again October 29 for COPD exacerbation, pneumonia and mild CHF; her furosemide 20 mg daily was resumed. The patient was evaluated in the emergency room on November 24 after a fall and found to have a systolic blood pressure of 80 by EMS. Her her heart rate in the emergency room was 96-136 and systolic BP 100-111 mmHg. The patient has had low blood pressures ?all her life? and her daughter was told to hold the metoprolol if her systolic blood pressure was less than 100. The low blood pressure tends to make her weak. The patient came to the emergency room yesterday with weakness and a systolic blood pressure of 78 which responded IV fluids. She also has AFib RVR with heart rate of 133 on admission. She was transiently on a diltiazem drip at 5 milligrams/hour and currently her heart rate is 100-120 beats per minute. Blood pressure runs 95-110 mmHg. She is being treated for UTI. Review of Systems Review of Systems: Review of systems was obtained from the patient's daughter Rose as well as the patient in EMR as Ms. Blum has dementia. Low Blood pressure has been a chronic problem for while. Constitutional: Constitutional: Reports fatigue and Reports weakness Eyes: Eyes: Reports no additional eye complaints ENT: Denies epistaxis Cardiovascular: Cardiovascular: Denies chest pain, Denies pedal edema, Denies leg edema and Re
[2021-11-28] MEDS: ESCITALOPRAM OXALATE 10 MG TABLET PO (10:35)
[2021-11-28] MEDS: AMIODARONE 150 MG/D5W 100 ML 150 MG/100 ML BAG 600 MG IV CONT (11:51)
[2021-11-28] MEDS: MIDODRINE HCL 2.5 MG TABLET 5 MG PO ×2 (11:52→17:44)
[2021-11-28] MEDS: AMIODARONE HCL 200 MG TABLET 400 MG PO (17:44)
[2021-11-28] MEDS: RIVAROXABAN 20 MG TABLET PO (17:45)
--- NOTE | 2021-11-28 20:03 | PM.IMPN ---
Progress Note: A&P Assessment and Plan (1) Atrial fibrillation with RVR: Code(s): I48.91 - Unspecified atrial fibrillation Status: Acute Assessment and Plan: The patient's heart rate is in the 110 range at this time. I will consult Cardiology. Patient's blood pressure soft she did get a dose of Cardizem. She is no longer on Cardizem. She is on metoprolol at home. However her blood pressure is low at this time. The patient was given a bolus of IV fluids and that did bring her blood pressure slightly. Further recommendation per Cardiology. The patient is on Xarelto at home. (2) UTI (urinary tract infection): Code(s): N39.0 - Urinary tract infection, site not specified Status: Acute Assessment and Plan: Patient has a history of Klebsiella in her urine. This was susceptible to Rocephin. So will start her on Rocephin. Blood and urine cultures are pending. Could be early sepsis. Gently hydrate the patient she has a history of congestive heart failure. Patient a fast heart rate and low blood pressure. (3) Hypotension: Qualifiers: Hypotension type: unspecified hypotension type Qualified Code(s): I95.9 - Hypotension, unspecified Code(s): I95.9 - Hypotension, unspecified Status: Acute Assessment and Plan: Patient was given a 1 time bolus of IV fluids. Patient may have a rapid heart rate due to the hypotension. (4) CHF (congestive heart failure): Qualifiers: Heart failure chronicity: unspecified Heart failure type: unspecified Qualified Code(s): I50.9 - Heart failure, unspecified Code(s): I50.9 - Heart failure, unspecified Status: Acute Assessment and Plan: I did order another echo. Patient is on metoprolol and Lasix however her blood pressure is low at this time. I am going to hold those 2 medications for now. (5) COPD (chronic obstructive pulmonary disease): Code(s): J44.9 - Chronic obstructive pulmonary disease, unspecified Status: Acute Assessment and Plan: The patient tells me she cannot recall wearing any oxygen at home. However the nurse tells me that the daughter stated the patient does wear oxygen at. (6) Pneumonia: Qualifiers: Laterality: unspecified laterality Lung location: unspecified part of lung Pneumonia type: due to unspecified organism Qualified Code(s): J18.9 - Pneumonia, unspecified organism Code(s): J18.9 - Pneumonia, unspecified organism Status: Acute Assessment and Plan: The patient has been on Augmentin and her chest x-ray has not changed in the last month. Patient is afebrile at this time. Additional Plan 11/28/21 seen by cardio recs appreciated amiodarone and OAC midodrine for chronically low BP cont Rocephin cont supportive care Subjective Date/time seen: 11/28/21 20:03 Patient a little bit confused although is able to be reoriented. She request assistance to go to the restroom. She has denies any pain or other complaints Exam Narrative: GEN: NAD, AAOx2, cooperative frail elderly female HEENT: NCAT, MMM, EOMI Neck: no JVD Heart: IRR Lungs: CTA B/l Abd: soft, NT, ND, bowel sounds normoactive Ext: moves all, no cyanosis, no clubbing, no edema Neuro: Moves all extremities cranial nerves intact Objective Data Vital Signs Vital Signs: Vital Signs - 24 hr 11/27/21 22:00 11/27/21 23:39 11/28/21 00:00 Temperature 96.6 F L Pulse Rate 102 H 109 H 99 Respiratory Rate 20 Blood Pressure 107/68 Pulse Oximetry 94 95 11/28/21 02:00 11/28/21 03:35 11/28/21 04:00 Temperature 96.3 F L Pulse Rate 101 H 95 100 Respiratory Rate 18 Blood Pressure 98/60 L Pulse Oximetry 96 96 11/28/21 06:00 11/28/21 08:00 11/28/21 10:00 Temperature 97.7 F Pulse Rate 128 H 99 98 Respiratory Rate 14 Blood Pressure 104/62 Pulse Oximetry 95 11/28/21 11:51 11/28/21 12:00 11/28/21 14:00 Temperature 97.6 F Pulse Rate 8
[2021-11-29] VITALS (12 sets, daily range): BP systolic 90–108; BP diastolic 56–74; PULSE 88–129; RESP 14–24; TEMP 35.8–37.1; O2SAT 92–98
--- NOTE | 2021-11-29 | ECHO_ITS ---
Patient Info Name: Mónica Blum Age: 86 years : 1935 Gender: Female Ht: 67 in Wt: 126 lbs BSA: 1.64 m2 HR: 96 bpm BP: 101 / 61 mmHg Heart Rhythm: Atrial Fibrillation Exam Date: 11/29/2021 10:08 AM Exam Location: [facility] Patient Status: Inpatient Admit Date: 11/27/2021 Staff Ordering Physician: Nhi Ramsey NP Helper/Driver: Chi Causey, JUANIS, RT Attending Provider: Rozina Brian MD Referring Physician: Braulio MARTINEZ; Exam Type: CA echo doppler color flow Study Info Indications I50.9 - Heart failure, unspecified Complete two-dimensional, color flow and Doppler transthoracic echocardiogram is performed. Summary 1. Complete two-dimensional, color flow and Doppler transthoracic echocardiogram is performed. 2. Left ventricular chamber dimension is normal. 3. Left ventricular systolic function is normal, estimated at 60-65%. 4. There is mildly increased left ventricular wall thickness. 5. The left ventricular diastolic function is abnormal. 6. Left atrial chamber dimension is severely enlarged. 7. Right atrial chamber dimension is mildly enlarged. 8. There is mild mitral valve regurgitation. 9. There is mild tricuspid valve regurgitation. 10. Moderate pulmonary hypertension, estimated pulmonary arterial systolic pressure is 53 mmHg. 11. The pericardium appears thickened pericardium. 12. Pleural effusion is seen. Left Ventricle Left ventricular chamber dimension is normal. Left ventricular systolic function is normal, estimated at 60-65%. There is mildly increased left ventricular wall thickness. The left ventricular diastolic function is abnormal. Right Ventricle Right ventricular chamber dimension is normal. Right ventricular systolic function is normal. Left Atria Left atrial chamber dimension is severely enlarged. Right Atria Right atrial chamber dimension is mildly enlarged. Atrial Septum Intact interatrial septum visualized by color flow imaging. Intact interatrial septum visualized by color flow imaging. Aortic Valve The aortic valve is trileaflet. There is mild aortic valve sclerosis. There is no aortic valve stenosis. There is trace aortic valve regurgitation. Pulmonic Valve The pulmonic valve is normal. There is no pulmonic valve stenosis. There is trace pulmonic regurgitation. Mitral Valve The mitral valve has normal leaflets. There is no mitral valve stenosis. There is mild mitral valve regurgitation. Tricuspid Valve The tricuspid valve leaflets are normal. There is no significant tricuspid valve stenosis. There is mild tricuspid valve regurgitation. Moderate pulmonary hypertension, estimated pulmonary arterial systolic pressure is 53 mmHg. Pericardium/Pleural The pericardium appears thickened pericardium. There is trivial pericardial effusion. Pleural effusion is seen. Inferior Vena Cava Dilated inferior vena cava with <50% collapse upon inspiration consistent with elevated right atrial pressure, 15 mmHg. Aorta The aortic root size at the sinus of Valsalva is normal. There is mild aortic atherosclerosis. Left Ventricular Outflow Tract Name Value Normal LVOT 2D LVOT Diameter 1.9 cm
[2021-11-29 05:03] LABS: Hematocrit 35.5 % (37.0-47.0); Hemoglobin 11.2 g/dL (12.0-15.0); Mean Corpuscular HGB Conc 31.5 g/dl (32-36); Mean Corpuscular Hemoglobin 28.1 pg (26-34); Mean Platelet Volume 10.1 fl (7.4-10.4); Platelet Count Result 289 k/mm3 (150-375); Red Blood Count 3.99 M/mm3 (4.2-5.4); Red Cell Distribution Width 17.3 % (11.5-14.5); White Blood Count 5.5 K/mm3 (4.5-10.0)
[2021-11-29 05:21] LABS: Anion Gap 5 mmol/L (8-16); Blood Urea Nitrogen 16 mg/dL (7-17); Calcium 7.8 mg/dL (8.4-10.2); Carbon Dioxide 27 mmol/L (22-30); Chloride 103 mmol/L (98-107); Estimated CRCL calculation 61 ml/min; Estimated Glomerular Filt Rate > 60; Glucose 101 mg/dL (65-110); Potassium 3.4 mmol/L (3.4-5.0); Sodium 135 mmol/L (137-145)
[2021-11-29] MEDS: AMIODARONE HCL 200 MG TABLET 400 MG PO ×2 (08:32→17:45)
[2021-11-29] MEDS: MIDODRINE HCL 2.5 MG TABLET 5 MG PO ×2 (08:32→17:46)
[2021-11-29] MEDS: ESCITALOPRAM OXALATE 10 MG TABLET PO (08:32)
--- NOTE | 2021-11-29 10:45 | PM.PNCARD ---
Progress Note: A&P Assessment and Plan (1) Atrial fibrillation with RVR: Code(s): I48.91 - Unspecified atrial fibrillation Status: Acute Assessment and Plan: Patient has persistent atrial fibrillation, attempting rate control and anticoagulation strategy (Xarelto at appropriate dose). Patient has persistent low blood pressure makes it difficult to use the usual medications for AFib rate control which aggravate low blood pressure. Continue amiodarone and anticoagulation. Discussed with patient's daughter including some of the long-term problems with amiodarone and she agrees to whatever we think is best. (2) Hypotension: Qualifiers: Hypotension type: unspecified hypotension type Qualified Code(s): I95.9 - Hypotension, unspecified Code(s): I95.9 - Hypotension, unspecified Status: Acute Assessment and Plan: Apparently has had low blood pressure ?all her life? but this has been more problem recently because it leads to hypotension, weakness and falls. Doubt is related to a specific problem such as dehydration (long-term problem, BUN and creatinine are okay) or acute infection Let us try midodrine. Will DC IV fluids (3) History of CHF (congestive heart failure): Code(s): Z86.79 - Personal history of other diseases of the circulatory system Status: Acute Assessment and Plan: Euvolemic at this time DC IV fluids (4) COPD (chronic obstructive pulmonary disease): Code(s): J44.9 - Chronic obstructive pulmonary disease, unspecified Status: Acute Assessment and Plan: COPD appears stable. (5) Hypokalemia: Code(s): E87.6 - Hypokalemia Status: Acute Assessment and Plan: KCL 40 mg p.o. x1 Subjective Date/time seen: 11/29/21 10:45 Interval history: 86-year-old with atrial fibrillation with rapid ventricular response Date of service 11/29/2021: No chest pains, shortness of breath. Heart rate is reasonably controlled but still elevated Review of Systems Constitutional: Constitutional: Reports fatigue and Reports weakness Eyes: Eyes: Reports no additional eye complaints ENT: Denies epistaxis Cardiovascular: Cardiovascular: Denies chest pain, Denies pedal edema, Denies leg edema, Reports lightheadedness, Denies dyspnea and Denies dyspnea on exertion Respiratory: Respiratory: Denies dyspnea and Denies dyspnea on exertion Gastrointestinal: Gastrointestinal: Denies abdominal pain and Denies nausea Genitourinary: Genitourinary: Denies hematuria Musculoskeletal: Musculoskeletal: Reports arthralgias Integumentary/Breasts: Skin/Breast: Denies rash Neurologic: Denies behavioral changes, Reports confusion and Reports weakness Psychiatric: Psychiatric: Denies behavioral changes and Reports confusion Endocrine: Endocrine: Reports fatigue Exam Const: General: comfortable, no acute distress and confusion Orientation/consciousness: confusion HENMT: General nose exam: no epistaxis Eyes: EOM: EOMs intact bilaterally Neck: Neck: supple and no JVD Thyroid: thyroid normal Lymphatic: lymphadenopathy not noted Resp: Effort & Inspection: normal respiratory effort Auscultation: clear to auscultation bilaterally and diminished lung sounds Cardio: Rate: tachycardic Rhythm: abnormal rhythm irregularly irregular Other: intact dorsalis pedis pulses GI: Inspection: non-distended Skin: General skin exam: normal color and no rashes or lesions noted Other: ecchymosis on forearms Neuro: General: confusion Cognition (Neuro): abnormal cognition Other: Patient is disoriented Extrem: General: no edema and no pedal edema Psych: Mental Status: mental status grossly normal Affect: normal affect Objective Data Vital Signs Vital Signs: Vital Signs - 24 hr 11/28/21 11:51 11/28/21 12:00 11/28/21 14:00 Temperature 36.4 C Pulse Rate 85 84 90
--- NOTE | 2021-11-29 13:02 | PM.IMPN ---
Progress Note: A&P Assessment and Plan (1) Atrial fibrillation with RVR: Code(s): I48.91 - Unspecified atrial fibrillation Status: Acute Assessment and Plan: The patient's heart rate is in the 110 range at this time. I will consult Cardiology. Patient's blood pressure soft she did get a dose of Cardizem. She is no longer on Cardizem. She is on metoprolol at home. However her blood pressure is low at this time. The patient was given a bolus of IV fluids and that did bring her blood pressure slightly. Further recommendation per Cardiology. The patient is on Xarelto at home. (2) UTI (urinary tract infection): Code(s): N39.0 - Urinary tract infection, site not specified Status: Acute Assessment and Plan: Patient has a history of Klebsiella in her urine. This was susceptible to Rocephin. So will start her on Rocephin. Blood and urine cultures are pending. Could be early sepsis. Gently hydrate the patient she has a history of congestive heart failure. Patient a fast heart rate and low blood pressure. (3) Hypotension: Qualifiers: Hypotension type: unspecified hypotension type Qualified Code(s): I95.9 - Hypotension, unspecified Code(s): I95.9 - Hypotension, unspecified Status: Acute Assessment and Plan: Patient was given a 1 time bolus of IV fluids. Patient may have a rapid heart rate due to the hypotension. (4) CHF (congestive heart failure): Qualifiers: Heart failure chronicity: unspecified Heart failure type: unspecified Qualified Code(s): I50.9 - Heart failure, unspecified Code(s): I50.9 - Heart failure, unspecified Status: Acute Assessment and Plan: I did order another echo. Patient is on metoprolol and Lasix however her blood pressure is low at this time. I am going to hold those 2 medications for now. (5) COPD (chronic obstructive pulmonary disease): Code(s): J44.9 - Chronic obstructive pulmonary disease, unspecified Status: Acute Assessment and Plan: The patient tells me she cannot recall wearing any oxygen at home. However the nurse tells me that the daughter stated the patient does wear oxygen at. (6) Pneumonia: Qualifiers: Laterality: unspecified laterality Lung location: unspecified part of lung Pneumonia type: due to unspecified organism Qualified Code(s): J18.9 - Pneumonia, unspecified organism Code(s): J18.9 - Pneumonia, unspecified organism Status: Acute Assessment and Plan: The patient has been on Augmentin and her chest x-ray has not changed in the last month. Patient is afebrile at this time. (7) Acute respiratory failure with hypoxia: Code(s): J96.01 - Acute respiratory failure with hypoxia Status: Acute Additional Plan 11/28/21 seen by cardio recs appreciated amiodarone and OAC midodrine for chronically low BP cont Rocephin cont supportive care 11/29/21 pt doing ok HR improved transfer to med surg w tele still w resp failure cont current care defer to cardiology further managment recs Subjective Date/time seen: 11/29/21 13:02 HR improving, pt w/o complaints still on 3L Exam Narrative: GEN: NAD, AAOx2, cooperative frail elderly female HEENT: NCAT, MMM, EOMI Neck: no JVD Heart: IRR Lungs: NAD, symmetric chest rise, crackles Abd: soft, NT, ND, bowel sounds normoactive Ext: moves all, no cyanosis, no clubbing, no edema Neuro: Moves all extremities cranial nerves intact Objective Data Vital Signs Vital Signs: Vital Signs - 24 hr 11/28/21 14:00 11/28/21 16:00 11/28/21 17:44 Temperature 97.2 F L Pulse Rate 90 89 95 Respiratory Rate 12 Blood Pressure 102/70 Pulse Oximetry 95 11/28/21 18:00 11/28/21 20:00 11/28/21 22:00 Temperature 98.5 F Pulse Rate 103 H 89 89 Respiratory Rate 15 Blood Pressure 110/71 Pulse Oximetry 96 11/28/21 23:13 11/29/21 00:00 11/29/21 02:00 Temperature
[2021-11-29] MEDS: POTASSIUM CHLORIDE 20 MEQ TABLET 40 MEQ PO (14:51)
[2021-11-29] MEDS: RIVAROXABAN 20 MG TABLET PO (17:46)
--- NOTE | 2021-11-29 17:47 | PC.NURSE ---
This patient, Mónica Blmu, was transferred to [facility] on 11/29/21 at 1747. Personal belongings sent with patient. Report given to HAILEY Stephens. Appropriate documentation sent with patient.
--- NOTE | 2021-11-29 18:21 | PC.NURSE ---
Patient transferred from IMU to [address] [place] [address] 17:40 11/29/2021.
[2021-11-30] VITALS (13 sets, daily range): BP systolic 95–105; BP diastolic 54–71; PULSE 60–123; RESP 16–20; TEMP 35.8–36.7; O2SAT 95–99
[2021-11-30 05:43] LABS: Basophils Percent Auto 0.6 % (0.2-1.2); Eosinophils Absolute Auto 0.1 K/mm3 (0-0.3); Eosinophils Percent Auto 2.5 % (0-4.4); Hematocrit 37.7 % (37.0-47.0); Hemoglobin 11.7 g/dL (12.0-15.0); Immature Granulocyte Absolute 0.01 K/mm3 (0.00-0.031); Immature Granulocyte Percent A 0.2 % (0-0.5); Lymphocytes Absolute Auto 1.02 K/mm3 (0.9-3.2); Lymphocytes Percent Auto 19.9 % (18.3-44.2); Mean Corpuscular Hemoglobin 27.7 pg (26-34); Mean Corpuscular Volume 89.1 fl (80-100); Mean Platelet Volume 10.1 fl (7.4-10.4); Monocytes Absolute Auto 0.6 K/mm3 (0.1-0.6); Monocytes Percent Auto 12.5 % (2.6-8.5); Neutrophils Absolute Auto 3.3 K/mm3 (1.3-6.7); Neutrophils Percent Auto 64.3 % (45.5-73.1); Platelet Count Result 330 k/mm3 (150-375); Red Blood Count 4.23 M/mm3 (4.2-5.4); Red Cell Distribution Width 17.2 % (11.5-14.5); White Blood Count 5.1 K/mm3 (4.5-10.0)
[2021-11-30 06:06] LABS: Anion Gap 6 mmol/L (8-16); Blood Urea Nitrogen 14 mg/dL (7-17); Calcium 8.2 mg/dL (8.4-10.2); Carbon Dioxide 26 mmol/L (22-30); Chloride 104 mmol/L (98-107); Estimated CRCL calculation 53 ml/min; Estimated Glomerular Filt Rate > 60; Glucose 96 mg/dL (65-110); Magnesium 1.7 mg/dL (1.6-2.3); Potassium 3.8 mmol/L (3.4-5.0); Sodium 136 mmol/L (137-145)
[2021-11-30] MEDS: AMIODARONE HCL 200 MG TABLET 400 MG PO ×2 (07:59→16:40)
[2021-11-30] MEDS: MIDODRINE HCL 2.5 MG TABLET 5 MG PO ×2 (07:59→16:40)
[2021-11-30] MEDS: ESCITALOPRAM OXALATE 10 MG TABLET PO (07:59)
--- NOTE | 2021-11-30 10:25 | PM.PNCARD ---
Progress Note: A&P Assessment and Plan (1) Atrial fibrillation with RVR: Code(s): I48.91 - Unspecified atrial fibrillation Status: Acute Assessment and Plan: Patient has persistent atrial fibrillation, attempting rate control and anticoagulation strategy (Xarelto at appropriate dose). Patient has persistent low blood pressure makes it difficult to use the usual medications for AFib rate control which aggravate low blood pressure. Continue amiodarone and anticoagulation. Discussed with patient's daughter including some of the long-term problems with amiodarone and she agrees to whatever we think is best. Continue amiodarone and Xarelto (2) Hypotension: Qualifiers: Hypotension type: unspecified hypotension type Qualified Code(s): I95.9 - Hypotension, unspecified Code(s): I95.9 - Hypotension, unspecified Status: Acute Assessment and Plan: Apparently has had low blood pressure ?all her life? but this has been more problem recently because it leads to hypotension, weakness and falls. Doubt is related to a specific problem such as dehydration (long-term problem, BUN and creatinine are okay) or acute infection Let us try midodrine. (3) History of CHF (congestive heart failure): Code(s): Z86.79 - Personal history of other diseases of the circulatory system Status: Acute Assessment and Plan: Euvolemic at this time (4) COPD (chronic obstructive pulmonary disease): Code(s): J44.9 - Chronic obstructive pulmonary disease, unspecified Status: Acute Assessment and Plan: COPD appears stable. (5) Hypokalemia: Code(s): E87.6 - Hypokalemia Status: Acute Assessment and Plan: Replaced (6) Hypomagnesemia: Code(s): E83.42 - Hypomagnesemia Status: Acute Assessment and Plan: 2 g IV magnesium x1 now Subjective Date/time seen: 11/30/21 10:25 Interval history: 86-year-old with atrial fibrillation with rapid ventricular response Date of service 11/29/2021: No chest pains, shortness of breath. Heart rate is reasonably controlled but still elevated Date of service 11/30/2021: Heart rate mildly elevated but otherwise she is feeling okay. Without complaint Review of Systems Constitutional: Constitutional: Reports fatigue and Reports weakness Eyes: Eyes: Reports no additional eye complaints ENT: Denies epistaxis Cardiovascular: Cardiovascular: Denies chest pain, Denies pedal edema, Denies leg edema, Reports lightheadedness, Denies dyspnea and Denies dyspnea on exertion Respiratory: Respiratory: Denies dyspnea and Denies dyspnea on exertion Gastrointestinal: Gastrointestinal: Denies abdominal pain and Denies nausea Genitourinary: Genitourinary: Denies hematuria Musculoskeletal: Musculoskeletal: Reports arthralgias Integumentary/Breasts: Skin/Breast: Denies rash Neurologic: Denies behavioral changes, Reports confusion and Reports weakness Psychiatric: Psychiatric: Denies behavioral changes and Reports confusion Endocrine: Endocrine: Reports fatigue Exam Const: General: comfortable, no acute distress and confusion Orientation/consciousness: confusion HENMT: General nose exam: no epistaxis Eyes: EOM: EOMs intact bilaterally Neck: Neck: supple and no JVD Thyroid: thyroid normal Lymphatic: lymphadenopathy not noted Resp: Effort & Inspection: normal respiratory effort Auscultation: clear to auscultation bilaterally and diminished lung sounds Cardio: Rate: tachycardic Rhythm: abnormal rhythm irregularly irregular Other: intact dorsalis pedis pulses GI: Inspection: non-distended Skin: General skin exam: normal color and no rashes or lesions noted Other: ecchymosis on forearms Neuro: General: confusion Cognition (Neuro): abnormal cognition Other: Patient is disoriented Extrem: General: no edema and no
--- NOTE | 2021-11-30 10:27 | PM.IMPN ---
Progress Note: A&P Assessment and Plan (1) Atrial fibrillation with RVR: Code(s): I48.91 - Unspecified atrial fibrillation Status: Acute Assessment and Plan: The patient's heart rate is in the 90-110 range at this time. Per Cardiology, she was started on amiodarone. She has been hypotensive and midodrine was started with mild improvement of BP. As of today, plan is to continue amiodarone and anticoagulation. (2) UTI (urinary tract infection): Code(s): N39.0 - Urinary tract infection, site not specified Status: Acute Assessment and Plan: Patient has a history of Klebsiella in her urine. Urine is growing greater than 100,000 CFU/mL of non-uropathogenic Gram positive organism . She was started on Rocephin being that we are continuing for the time being. Blood cultures remain unrevealing. Could be early sepsis. Gently hydrate the patient she has a history of congestive heart failure. Patient a fast heart rate and low blood pressure. (3) Hypotension: Qualifiers: Hypotension type: unspecified hypotension type Qualified Code(s): I95.9 - Hypotension, unspecified Code(s): I95.9 - Hypotension, unspecified Status: Acute Assessment and Plan: Patient was given a 1 time bolus of IV fluids. Patient may have a rapid heart rate due to the hypotension. Currently improving on p.o. midodrine. (4) CHF (congestive heart failure): Qualifiers: Heart failure chronicity: unspecified Heart failure type: unspecified Qualified Code(s): I50.9 - Heart failure, unspecified Code(s): I50.9 - Heart failure, unspecified Status: Acute Assessment and Plan: Echocardiogram reveals normal LV function with EF 60-65%. There is mild diastolic dysfunction. There is moderate pulmonary hypertension with a PA pressure of 53. Patient was previously on metoprolol and Lasix, which are being held due to hypotension. (5) COPD (chronic obstructive pulmonary disease): Code(s): J44.9 - Chronic obstructive pulmonary disease, unspecified Status: Acute Assessment and Plan: There is no evidence of COPD exacerbation. Continue p.r.n. inhalers. The patient tells me she cannot recall wearing any oxygen at home. However the nurse tells me that the daughter stated the patient does wear oxygen at home. Patient requires 3 L of oxygen supplementation. (6) Pneumonia: Qualifiers: Laterality: unspecified laterality Lung location: unspecified part of lung Pneumonia type: due to unspecified organism Qualified Code(s): J18.9 - Pneumonia, unspecified organism Code(s): J18.9 - Pneumonia, unspecified organism Status: Acute Assessment and Plan: The patient has been on Augmentin and her chest x-ray has not changed in the last month. Patient is afebrile at this time. Currently on Rocephin. (7) Acute respiratory failure with hypoxia: Code(s): J96.01 - Acute respiratory failure with hypoxia Status: Acute Assessment and Plan: This may represent chronic respiratory failure in the setting of COPD and pulmonary hypertension. Continue oxygen supplementation. No evidence of COPD exacerbation. Additional Plan 11/28/21 seen by cardio recs appreciated amiodarone and OAC midodrine for chronically low BP cont Rocephin cont supportive care 11/29/21 pt doing ok HR improved transfer to med surg w tele still w resp failure cont current care defer to cardiology further managment recs. 11/30/2021 Patient is examined at the bedside. She is doing okay. Blood pressure is improving slowly, heart rate for remain less than 115. She is to requires 3 L of oxygen. Urine growing non uro pathogenic organism. Will continue Rocephin for now. Subjective Date/time seen: 11/30/21 10:45 S: Patient was seen examined at the bedside. She is in very good spirits. She denies any complaints. Heart rate is controlled in the 94-112 range. Patient stil
[2021-11-30] MEDS: MAGNESIUM SULF 2 GM/WATER 50ML 2 GM/50 ML BAG IVPB (11:11)
[2021-11-30] MEDS: RIVAROXABAN 20 MG TABLET PO (16:41)
[2021-12-01] VITALS (12 sets, daily range): BP systolic 100–108; BP diastolic 61–62; PULSE 83–124; RESP 18; TEMP 35.9–36.4; O2SAT 87–100
[2021-12-01] MEDS: AMIODARONE HCL 200 MG TABLET 400 MG PO (08:22)
[2021-12-01] MEDS: ESCITALOPRAM OXALATE 10 MG TABLET PO (08:23)
[2021-12-01] MEDS: MIDODRINE HCL 2.5 MG TABLET 5 MG PO (08:23)
--- NOTE | 2021-12-01 08:28 | PM.PNCARD ---
Progress Note: A&P Additional Plan 86-year-old lady with: Chronic atrial fibrillation current rate control strategy is with amiodarone and currently receiving 800 mg daily. While she is in the hospital I would continue this dosage and observe her telemetry. Upon discharge I would reduce this to 400 mg daily and I will need to see her in the office at short interval for follow-up to verify rate control and her clinical status at that time. She is not hemodynamically unstable and does not have to stay in the hospital any longer from the cardiovascular perspective. Toney Jorge MD [facility] Subjective Date/time seen: Date of service:12/01/21 08:28 Interval history: 86-year-old lady with: Chronic atrial fibrillation pursuing a rate control and anticoagulation strategy. P she was previously receiving metoprolol for rate control but because of hypotension this has now been switched to amiodarone. Telemetry demonstrates overall fairly good heart rate control with amiodarone currently receiving 800 mg daily. Tolerating systemic anticoagulation without any problems. Today the patient has no cardiovascular complaints. She is not completely coherent she does not remember circumstances that resulted in her being admitted to the hospital. Chart indicates she was brought here by her family because of weakness the patient states she was here visiting an ill friend and was hospitalized for reasons she can not remember. Exam Const: General: comfortable and no acute distress Other: Frail elderly lady no distress HENMT: Mouth: Yes moist mucous membranes Eyes: Sclera: sclerae normal Pupils: Equal, round and reactive pupils present Neck: Neck: supple and no JVD Resp: Effort & Inspection: normal respiratory effort Auscultation: clear to auscultation bilaterally Cardio: Other: irregularly irregular GI: GI Palp: Yes Soft to palpation Auscultation: normal bowel sounds Skin: General skin exam: normal color Neuro: Other: alert and responsive as stated above not completely coherent Extrem: General: normal to inspection Objective Data Vital Signs Vital Signs: Vital Signs - 24 hr 11/30/21 09:02 11/30/21 12:00 11/30/21 12:51 Temperature 36.7 C 36.5 C Pulse Rate 94 123 H 100 Respiratory Rate 18 18 Blood Pressure 103/70 99/68 L Pulse Oximetry 98 99 11/30/21 16:00 11/30/21 16:40 11/30/21 17:01 Temperature 36.6 C Pulse Rate 88 108 H 105 H Respiratory Rate 18 Blood Pressure 95/71 L Pulse Oximetry 97 11/30/21 20:00 11/30/21 23:49 12/01/21 00:00 Temperature 35.9 C L 36.0 C L Pulse Rate 90 92 92 Respiratory Rate 16 18 Blood Pressure 100/70 100/68 Pulse Oximetry 97 97 12/01/21 04:00 12/01/21 08:22 Temperature 35.9 C L Pulse Rate 83 124 H Respiratory Rate 18 Blood Pressure 100/61 Pulse Oximetry 100 Intake/Output Intake/Output: Intake & Output 11/28/21 11/29/21 11/30/21 12/01/21 23:59 23:59 23:59 23:59 Intake Total 993 1240 630 290 Output Total 700 200 400 Balance 293 1040 230 290 Meds/Results Medications: Active Medications Generic Name Dose Route Start Last Admin Trade Name Freq PRN Reason Stop Dose Admin Amiodarone HCl 400 mg 11/28/21 17:00 12/01/21 08:22 Amiodarone Hcl 200 Mg Tablet PO 400 mg BID DAYANARA Administration Diphenhydramine HCl 25 mg 11/27/21 22:09 Diphenhydramine Hcl Cap 25 Mg Capsule PO Q6H PRN Itching Escitalopram Oxalate 10 mg 11/28/21 09:00 12/01/21 08:23 Escitalopram Oxalate 10 Mg Tablet PO 10 mg DAILY DAYANARA Administration Ceftriaxone Sodium/Dextrose 1 gm in 50 mls @ 100 mls/hr 11/28/21 14:00 11/30/21 15:09 Rocephin 1 Gm/D5w 50 Ml IVPB Infused Q24H DAYANARA Infusion Midodrine 5 mg 11/28/21 10:40 12/01/21 08:23 Midodrine Hcl 2.5 Mg Tablet PO 5 mg BID DAYANARA Administration Rivaroxaban 20 mg 11/28/21 17:00 11/30/21 16:41 Rivaroxaban 20 Mg Tablet PO 20 mg 1700 [facility] Administrat
--- NOTE | 2021-12-01 09:11 | PM.DS ---
DS: Admitting Diagnosis Discharge Date 12/01/2021 Admitting Diagnosis (1) Atrial fibrillation with RVR: (2) UTI (urinary tract infection): (3) Hypotension: (4) CHF (congestive heart failure): (5) COPD (chronic obstructive pulmonary disease): (6) Pneumonia: (7) chronic respiratory failure. Patient requires no oxygen at rest; she needs 2 L of oxygen with activity. DS: Discharge Diagnosis Discharge Diagnosis (1) Atrial fibrillation with RVR: Code(s): I48.91 - Unspecified atrial fibrillation Status: Acute Assessment and Plan: The patient's heart rate is in the 90-110 range at this time. Per Cardiology, she was started on amiodarone. She has been hypotensive and midodrine was started with mild improvement of BP. As of today, plan is to continue amiodarone and anticoagulation. (2) UTI (urinary tract infection): Code(s): N39.0 - Urinary tract infection, site not specified Status: Acute Assessment and Plan: Patient has a history of Klebsiella in her urine. Urine is growing greater than 100,000 CFU/mL of non-uropathogenic Gram positive organism . She was started on Rocephin being that we are continuing for the time being. Blood cultures remain unrevealing. Could be early sepsis. Gently hydrate the patient she has a history of congestive heart failure. Patient a fast heart rate and low blood pressure. (3) Hypotension: Qualifiers: Hypotension type: unspecified hypotension type Qualified Code(s): I95.9 - Hypotension, unspecified Code(s): I95.9 - Hypotension, unspecified Status: Acute Assessment and Plan: Patient was given a 1 time bolus of IV fluids. Patient may have a rapid heart rate due to the hypotension. Currently improving on p.o. midodrine. (4) CHF (congestive heart failure): Qualifiers: Heart failure chronicity: unspecified Heart failure type: unspecified Qualified Code(s): I50.9 - Heart failure, unspecified Code(s): I50.9 - Heart failure, unspecified Status: Acute Assessment and Plan: Echocardiogram reveals normal LV function with EF 60-65%. There is mild diastolic dysfunction. There is moderate pulmonary hypertension with a PA pressure of 53. Patient was previously on metoprolol and Lasix, which are being held due to hypotension. (5) COPD (chronic obstructive pulmonary disease): Code(s): J44.9 - Chronic obstructive pulmonary disease, unspecified Status: Acute Assessment and Plan: There is no evidence of COPD exacerbation. Continue p.r.n. inhalers. The patient tells me she cannot recall wearing any oxygen at home. However the nurse tells me that the daughter stated the patient does wear oxygen at home. Patient requires 3 L of oxygen supplementation. (6) Pneumonia: Qualifiers: Laterality: unspecified laterality Lung location: unspecified part of lung Pneumonia type: due to unspecified organism Qualified Code(s): J18.9 - Pneumonia, unspecified organism Code(s): J18.9 - Pneumonia, unspecified organism Status: Acute Assessment and Plan: The patient has been on Augmentin and her chest x-ray has not changed in the last month. Patient is afebrile at this time. Currently on Rocephin. (7) Acute respiratory failure with hypoxia: Code(s): J96.01 - Acute respiratory failure with hypoxia Status: Acute Assessment and Plan: This may represent chronic respiratory failure in the setting of COPD and pulmonary hypertension. Continue oxygen supplementation. No evidence of COPD exacerbation. DS: Summary Hospital Course Reason for hospitalization: Weakness Hospital Course: Please refer to admission H& P. Briefly, this is an 86-year-old female patient who resides with her family she has a past medical history of congestive heart failure, respiratory failure and atrial fibrillation, admitted for evaluation of generalized weakness. The patient had a blood pressure
--- NOTE | 2021-12-01 12:00 | PCSTNOTE ---
Please refer to the Bedside Swallow Evaluation in the EMR. Please note, silent aspiration cannot be ruled out at bedside.
--- NOTE | 2021-12-01 15:01 | PCRCNOTE ---
HOME O2 EVAL COMPLETE, 2 LITERS WITH ACTIVITY. PT HAS HOME O2, THERE IS NO CHANGES TO CURRENT HOME SETTINGS. DAUGHTER TO BRING IN TANK FOR DISCHARGE.
== END 2021-12-01 16:30 | disposition home health service (06) | DRG 309 ==
LOC: ANHED 12:52 → ANHIMU 18:23 → ANH2MED 12-01 09:11 → ANHIMU 12-02 14:43
PROVIDERS: Nurse Practitioner; Admitting Provider Hospitalist; Emergency Provider Emergency Medicine; PCP Family Medicine Adolescent Medicine; Visit Provider Internal Medicine
DX: I48.19 Other persistent atrial fibrillation (principal); N39.0 Urinary tract infection, site not specified; J44.0 Chronic obstructive pulmonary disease with (acute) lower respiratory infection; J96.11 Chronic respiratory failure with hypoxia; I27.20 Pulmonary hypertension, unspecified; Z99.81 Dependence on supplemental oxygen; Z20.822 Contact with and (suspected) exposure to COVID-19; I95.9 Hypotension, unspecified; I50.9 Heart failure, unspecified; E87.6 Hypokalemia; E83.42 Hypomagnesemia; Z66 Do not resuscitate; Z28.21 Immunization not carried out because of patient refusal; Z87.01 Personal history of pneumonia (recurrent); Z79.01 Long term (current) use of anticoagulants; Z88.0 Allergy status to penicillin; Z88.1 Allergy status to other antibiotic agents; Z88.2 Allergy status to sulfonamides; Z91.81 History of falling; Z98.42 Cataract extraction status, left eye; Z98.41 Cataract extraction status, right eye; Z96.1 Presence of intraocular lens
CPT/HCPCS: 36415; 51701; 71045; 80048; 80053; 81001; 82728; 83605; 83735; 84443; 84484; 85025; 85027; 85610; 85730; 86140; 87040; 87086; 87088; 87502; 92610; 93005; 93306; 94618; 96365; 96366; 96367; 96375; 96376; 99285; A9270; C9803; G0378; J0282; J0696; J3475; J7030; U0003; U0005

== ENCOUNTER 2022-02-22 19:48 | Inpatient (IN) | payer MEDICARE, SELFPAY ==
--- NOTE | ~2022-02-22 | XR_ITS ---
XR small bowel follow through DATE: 02/25/2022 21:36 INDICATION: Gastrointestinal blood loss. Anemia. TECHNIQUE: Serial images of the abdomen after oral ingestion of barium. COMPARISON: None FINDINGS: There is slow transit of contrast material through the small bowel, contrast material reach ing the colon between 3 and 8 hours. No stricture, mucosal fold thickening, mucosal fold thickening or intraluminal mass lesion is detecte d. No abnormal small bowel dilatation. There is likely chronic fracture deformity of L1. There is diffuse osteopenia. There is severe oste oarthritic change and protrusio of the right hip. IMPRESSION: Delayed small bowel transit, without evidence of small bowel obstruction Reviewed, dictated and finalized at [facility]. Reviewed, dictated and finalized at location [facility]. IMPRESSION: Delayed small bowel transit, without evidence of small bowel obstru ction
--- NOTE | ~2022-02-22 | XR_ITS ---
EXAMINATION: XR chest 1V portable DATE: 03/04/2022 08:12 INDICATION: Shortness of breath and chest pain TECHNIQUE: frontal view of the chest was obtained. COMPARISON: Chest radiograph dated 02/28/2022 FINDINGS: Emphysema. Hazy opacity throughout the right hemithorax with blunting at the costophrenic angles cons istent with small bilateral pleural effusions, right greater than left. More dense consolidation at t he bilateral lower lung zones. No pneumothorax. Cardiomediastinal silhouette is normal. IMPRESSION: 1. Small bilateral pleural effusions, right greater than left. 2. Consolidation in the bilateral lower lung zones which could represent atelectasis and/or pneumonia . 3. Emphysema. Reviewed, dictated and finalized at location [facility]. IMPRESSION: 1. Small bilateral pleural effusions, right greater than left. 2. Consolidation in the bilateral lower lung zones which could represent atelec tasis and/or pneumonia. 3. Emphysema.
--- NOTE | ~2022-02-22 | XR_ITS ---
EXAMINATION: XR chest 2V DATE: 02/28/2022 11:16 INDICATION: Hypoxia TECHNIQUE: frontal and lateral views of the chest were obtained. COMPARISON: Chest radiograph dated 03/02/2022 FINDINGS: Emphysema with hyperexpansion of lungs with increased retrosternal clear space. Pleural parenchymal s carring at the periphery of the right mid and bilateral lower lung zones. Opacities at the bilateral lower lung zones with blunting at costophrenic angles consistent with small bilateral pleural effusio ns and associated atelectasis and/or pneumonia. No pneumothorax. Cardiomediastinal silhouette is norm al. Chronic L1 burst fracture and T7 compression fracture. Retained barium contrast material within t he colon likely related to recent small bowel follow-through study. IMPRESSION: 1. Emphysema with chronic pleural parenchymal scarring. 2. Small bilateral pleural effusions with associated basilar atelectasis and/or pneumonia. Reviewed, dictated and finalized at location [facility].
--- NOTE | ~2022-02-22 | CT_ITS ---
EXAMINATION: CT abdomen pelvis wo con DATE: 03/02/2022 09:36 INDICATION: Inflammation of the bowels. Infectious process. TECHNIQUE: Computed tomography (CT) of the abdomen and pelvis was performed without intravenous contr ast. Automated exposure control and iterative reconstruction technique were employed. The dose-length product was 683.00 mGy-cm. COMPARISON: Chest CT dated 10/30/2021 FINDINGS: Severe emphysema. Small bilateral pleural effusions. There is consolidation in the right lower lobe a t least in part atelectasis although appears also suspicious for superimposed pneumonia. Visualized i nferior heart demonstrates right atrial enlargement. No pericardial effusion. Several calcified galls tones within the decompressed gallbladder. Liver, spleen, pancreas, bilateral adrenal glands and kidn eys are normal. No bowel obstruction. Visualization of the lower abdomen and upper pelvis is limited by large amount of streak artifact related to retained oral contrast material in the colon likely rel ated to an earlier small bowel follow-through study from 5 days prior. Prominent distention of the bl adder. 2.8 cm rim calcified macroscopic fat attenuation mass in the left posterior pelvis could repre sent an ovarian dermoid or sequela of fat necrosis. No free intraperitoneal gas or fluid. No patholog ically enlarged abdominal or pelvic lymphadenopathy. Chronic L1 compression fracture with 60% anterio r vertebral body height loss. Severe disc height loss at L5-S1. Otherwise mild lumbar and lower thora cic spondylosis. Bilateral hip osteoarthritis, mild on the left and severe on the right. IMPRESSION: 1. Consolidation in the right lower lobe suspicious for a combination of atelectasis and pneumonia. 2. Small bilateral pleural effusions. 3. Cholelithiasis. 4. 2.8 cm peripherally calcified centrally fat attenuation mass in the left hemipelvis which could re present either an ovarian dermoid or sequela of fat necrosis. Reviewed, dictated and finalized at location [facility]. IMPRESSION: 1. Consolidation in the right lower lobe suspicious for a combination of atelec tasis and pneumonia. 2. Small bilateral pleural effusions. 3. Cholelithiasis. 4. 2.8 cm peripherally calcified centrally fat attenuation mass in the left hem ipelvis which could represent either an ovarian dermoid or sequela of fat necro sis.
--- NOTE | ~2022-02-22 | XR_ITS ---
EXAMINATION: XR chest 2V Exam Date/Time: 02/22/2022 20:15 CDT CLINICAL HISTORY: Shortness of breath Comparison: None available. RESULT: Lines, tubes, and devices: None. Lungs and pleura: Senescent and severe emphysematous changes. Bilateral angle blunting. Cardiomediastinal silhouette: Stable cardiomediastinal silhouette. Other: No acute osseous or upper abdominal finding. Chronic L1 wedge compression fracture. IMPRESSION: Small bilateral pleural effusions versus chronic blunting from hyperinflation and scarring. Reviewed, dictated and finalized at location [facility]. IMPRESSION: Small bilateral pleural effusions versus chronic blunting from hyperinflation a nd scarring.
--- NOTE | 2022-02-22 19:53 | ECG_ITS ---
Measurements Intervals [place] Rate: 90 P: NC: 0 QRS: 57 QRSD: 85 T: 0 QT: 370 QTc: 454 Interpretive Statements ATRIAL FIBRILLATION NONSPECIFIC ST & T-WAVE ABNORMALITY LOW VOLTAGE ABNORMAL RHYTHM ECG COMPARED TO ECG 11/27/2021 09:13:29 T-WAVE ABNORMALITY NOW PRESENT Electronically Signed On 02-23-2022 15:44:11 CDT by Kevin Minaya M.D.
--- NOTE | 2022-02-22 19:56 | ED.SOB ---
HPI - SOB/Dyspnea General Chief Complaint: Shortness of Breath/Dyspnea Stated Complaint: SOB Source: patient and EMS Mode of arrival: EMS Limitations: no limitations History of Present Illness HPI Narrative: 86-year-old female presents emergency room as her daughter called EMS stating that she was short of breath with exertion. Patient denies any symptoms. She states she was sitting in the bed watching TV was comfortable. She does have oxygen at home. When EMS arrived she was on supplemental oxygen 2 L with O2 saturations running 98 to 100%. Patient denies any chills or fevers. No cough or congestion. She does have underlying history of A. fib as well as COPD. Denies any respiratory symptoms other than when she exerts herself she states she is short of breath but she states that is normal for me . She not have any swelling in her lower extremities. Denies any chest pain. Related Data Home Medications Medication Instructions Recorded Confirmed Xarelto 20 mg PO DAILY 10/29/21 12/09/21 diphenhydramine HCl [Benadryl] 25 mg PO Q6H PRN 11/27/21 12/09/21 metoprolol tartrate 25 mg PO BID 11/27/21 12/09/21 docusate sodium 100 mg capsule 100 mg PO DAILY 12/09/21 12/09/21 Allergies Allergy/AdvReac Type Severity Reaction Status Date / Time Penicillins Allergy Unknown Unknown Verified 12/09/21 13:17 ciprofloxacin [From Cipro] Allergy Hives Verified 12/09/21 13:17 Sulfa (Sulfonamide Allergy Hives Verified 12/09/21 13:17 Antibiotics) Review of Systems Review of Systems: CONSTITUTIONAL: Denies fever, chills, or sweats. EYES: Denies visual changes, redness, or discharge. ENT: Denies rhinorrhea, congestion, sore throat, or otalgia. CARDIOVASCULAR: Denies chest pain, palpitations, or edema. RESPIRATORY: Denies cough. Some mild shortness of breath with exertion. GASTROINTESTINAL: Denies abdominal pain, nausea, vomiting, or diarrhea. GENITOURINARY: Denies dysuria or hematuria. SKIN: Denies rash or itching. MUSCULOSKELETAL: Denies back pain, joint pain, or myalgia. NEUROLOGIC: Denies headache, numbness, or weakness. PSYCHIATRIC: Denies anxiety or depression. [facility] Past Medical History Medical History Afib Anemia Arthritis of knee, right Back pain Depression Emphysema, unspecified CXR 10/2019 GERD (gastroesophageal reflux disease) Left elbow fracture Leg fracture, right Shingles UTI (urinary tract infection) Surgical History Surgical History History of appendectomy History of tonsillectomy Status post cataract extraction of both eyes with insertion of intraocular lens Family History Family History Father Acute myocardial infarction Mother Alcoholism Sibling Cirrhosis Social History Social History Social History: She is since 2017. Her oldest daughter Rose lives with her. She has had 3 daughters. 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 Lifelong nonsmoker, no alcohol or illicit drugs. Had heavy secondhand smoke exposure as a child and young adult. Patient's father worked on the [employer]. Code status: DNR/DNI per patient request. She states that she is lived a long full life and is not afraid of . Healthcare power of traveling representative: Rose (daughter) Smoking status: Never smoker Second hand tobacco smoke exposure: No Alcohol intake: never Substance use: never Substance use type: does not use Gender identity (if verbalized by the patient): Female Sexual Orientation (if Verbalized by the Patient): Straight or Heterosexual Spiritual care concerns: No Agree to blood products: Yes Exam Narrative: APPEARANCE: Well appearing, no pain or distress, well-nourished. Head normocephalic and atraumatic. EYES: PERR
[2022-02-22 20:07] VITALS: BP 118/68; PULSE 82; RESP 15; TEMP 37.1; O2SAT 99
[2022-02-22 20:07] LABS: Basophils Percent Auto 0.2 % (0.2-1.2); Eosinophils Absolute Auto 0.1 K/mm3 (0-0.3); Eosinophils Percent Auto 1.3 % (0-4.4); Immature Granulocyte Absolute 0.04 K/mm3 (0.00-0.031); Immature Granulocyte Percent A 0.8 % (0-0.5); Lymphocytes Absolute Auto 1.03 K/mm3 (0.9-3.2); Lymphocytes Percent Auto 19.6 % (18.3-44.2); Mean Corpuscular HGB Conc 27.4 g/dl (32-36); Mean Corpuscular Hemoglobin 23.1 pg (26-34); Mean Corpuscular Volume 84.4 fl (80-100); Mean Platelet Volume 9.6 fl (7.4-10.4); Monocytes Absolute Auto 0.7 K/mm3 (0.1-0.6); Monocytes Percent Auto 13.1 % (2.6-8.5); Neutrophils Absolute Auto 3.4 K/mm3 (1.3-6.7); Nucleated Red Blood Cells Absolute Auto 0.3 K/mm3 (0.0-0.012); Nucleated Red Blood Cells Perc 5.1 % (0.0-0.2); Platelet Count Result 477 k/mm3 (150-375); Red Blood Count 1.73 M/mm3 (4.2-5.4); Red Cell Distribution Width 17.8 % (11.5-14.5); White Blood Count 5.3 K/mm3 (4.5-10.0)
[2022-02-22 20:15] VITALS: O2SAT 99
[2022-02-22 20:18] LABS: Alanine Aminotransferase 18 U/L (4-35); Albumin Level 3.3 g/dL (3.5-5.1); Alkaline Phosphatase 104 U/L (38-126); Anion Gap 8 mmol/L (8-16); Aspartate Amino Transferase 30 U/L (14-36); Bilirubin,Total 0.5 mg/dL (0.2-1.3); Blood Urea Nitrogen 26 mg/dL (7-17); Calcium 8.2 mg/dL (8.4-10.2); Carbon Dioxide 21 mmol/L (22-30); Chloride 105 mmol/L (98-107); Estimated CRCL calculation 35 ml/min; Estimated Glomerular Filt Rate 60; Glucose 143 mg/dL (65-110); Potassium 3.8 mmol/L (3.4-5.0); Sodium 134 mmol/L (137-145)
[2022-02-22 20:26] LABS: NT Pro B Type Natriuretic Pept 2030 pg/mL (5-100)
[2022-02-22 20:30] LABS: Troponin I < 0.012 ng/mL (0.000-0.034)
[2022-02-22 20:34] LABS: Hematocrit 14.6 % (37.0-47.0)
[2022-02-22 20:35] LABS: Platelet Estimate Increased (Adequate)
[2022-02-22 20:36] LABS: Anisocytosis 1+ (NORMAL); Hypochromasia 2+ (NORMAL)
[2022-02-22 22:55] VITALS: PULSE 101; RESP 21; O2SAT 97
[2022-02-22 23:38] VITALS: BMI 19.4
[2022-02-22 23:39] VITALS: BP 114/50; PULSE 99; RESP 20; TEMP 36.4; O2SAT 99
[2022-02-23] VITALS (29 sets, daily range): BP systolic 90–118; BP diastolic 40–83; PULSE 20–104; RESP 14–20; TEMP 36.2–37.3; O2SAT 89–100
--- NOTE | 2022-02-23 00:30 | ADMGEN ---
This patient, Mónica Blum, was admitted to 3 [facility] Surg Room 315-01 at 2320. Patient/family oriented to hospital policies and general routines including ID bracelet, bed and alarms, visiting hours, pain management, procedures, bathroom and other care routines, personal items, smoking policy, room service/diet, and visiting hours. Information on how to activate the Rapid Response Team has been discussed. Patient/Family are encouraged to report perceived risks to care and to ask questions if they do not understand what they are told or what they should do.
--- NOTE | 2022-02-23 00:36 | PM.IMHP ---
H&P: HPI History of Present Illness Date/Time: 02/23/22 00:36 Chief Complaint: Shortness of breath. Narrative: This is an 86-year-old female with past medical history significant for atrial fibrillation, rate controlled, anticoagulated. He owed patient presents to the emergency room due to worsening shortness of breath for the last 2 weeks or so most noticeably, PND, orthopnea, fatigue, altered mental status. Daughter brings her to the emergency room after she was found to have hemoglobin of 4, however patient denies any hematemesis, coffee-ground emesis, bright red blood per rectum, melena, no changes in stool character, no weight loss. Patient denies any fevers rigors or chills cough, sputum. Patient had a Guaic positive in emergency room being admitted for further evaluation, management and treatment. Review of Systems Review of Systems: Worsening shortness of breath, lack of energy, fatigue. Constitutional: Constitutional: Denies chills, Reports fatigue, Denies fever(s), Reports lethargy and Reports weakness Eyes: Eyes: Denies change in vision ENT: Denies dysphagia and Denies odynophagia Cardiovascular: Cardiovascular: Denies pedal edema, Denies edema, Denies leg edema, Reports lightheadedness, Denies radiating jaw, neck or arm pain, Reports palpitations and Reports dyspnea Respiratory: Respiratory: Denies chest congestion, Denies cough and Denies excessive phlegm production Gastrointestinal: Gastrointestinal: Denies melena, Denies hematochezia, Denies coffee ground emesis, Denies dyspepsia, Denies heartburn, Denies nausea and Denies vomiting Genitourinary: Genitourinary: Denies dysuria Musculoskeletal: Musculoskeletal: Reports muscle weakness Integumentary/Breasts: Skin/Breast: Denies rash Neurologic: Denies focal weakness and Denies Sensory deficit (Neuro) Psychiatric: Psychiatric: Reports no additional psychiatric complaints and Reports as per HPI Endocrine: Endocrine: Denies cold intolerance, Denies heat intolerance, Denies increase in ring/shoe/hat size, Denies polyphagia, Denies polydipsia, Denies polyuria and Denies palpitations Hematologic/Lymphatic: Hematologic/Lymphatic: Reports no additional hematologic/lymphatic complaints and Reports as per HPI Allergic/Immunologic: Allergic/Immunologic: Reports no additional allergic/immunologic complaints and Reports as per HPI [facility] Past Medical History Medical History Afib Anemia Arthritis of knee, right Back pain Depression Emphysema, unspecified CXR 10/2019 GERD (gastroesophageal reflux disease) Left elbow fracture Leg fracture, right Shingles UTI (urinary tract infection) Surgical History Surgical History History of appendectomy History of tonsillectomy Status post cataract extraction of both eyes with insertion of intraocular lens Family History Family History Father Acute myocardial infarction Mother Alcoholism Sibling Cirrhosis Social History Social History Social History: She is since 2017. Her oldest daughter Rose lives with her. She has had 3 daughters. 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 Lifelong nonsmoker, no alcohol or illicit drugs. Had heavy secondhand smoke exposure as a child and young adult. Patient's father worked on the [employer]. Code status: DNR/DNI per patient request. She states that she is lived a long full life and is not afraid of . Healthcare power of corporate attorney: Rose (daughter) Smoking status: Never smoker Second hand tobacco smoke exposure: No Alcohol intake: never Substance use: never Substance use type: does not use Gender identity (if verbalized by the patient): Female Sexual Orientation (if Verbalized by the [place]
[2022-02-23] MEDS: SODIUM CHLORIDE 0.9% IV 250 ML 30 ML IV CONT ×3 (01:24→12:55)
--- NOTE | 2022-02-23 07:56 | PM.IMPN ---
Progress Note: A&P Assessment and Plan (1) Anemia: Qualifiers: Anemia type: iron deficiency Iron deficiency anemia type: chronic blood loss Qualified Code(s): D50.0 - Iron deficiency anemia secondary to blood loss (chronic) Code(s): D64.9 - Anemia, unspecified Status: Acute Assessment and Plan: Patient with no signs of active bleeding at this time Will hold all anticoagulation - Hold Xarelto until H&H has stabilized and GI completed diagnostic studies. GI consult transfuse to a stable hemoglobin, keep Hgb >9, given age and comorbidities. Transfuse as needed profound anemia significant decline in hemoglobin noted compared to previous labs. GI physician suspects she could have had GI bleeding given her anticoagulation for atrial fibrillation. obtain stool Hemoccult as well as iron studies. Elective GI evaluation can be performed after her medical status is more stable, CHF compensated. ordered daily PO pantoprazole for possibility of gastritis or ulcer disease. (2) Shortness of breath: Code(s): R06.02 - Shortness of breath Status: Acute Assessment and Plan: Likely secondary to profound anemia. somewhat short of breath likely because of anemia but she does give a history of COPD and felt to be in congestive heart failure at present. Supportive care, inhalers p.r.n., supplemental oxygen as needed. (3) CHF (congestive heart failure): Qualifiers: Heart failure chronicity: acute on chronic Heart failure type: unspecified Qualified Code(s): I50.9 - Heart failure, unspecified Code(s): I50.9 - Heart failure, unspecified Status: Acute Assessment and Plan: No signs of acute decompensation. Strict I's and O's, daily weights, incentive spirometer ordered Chest x-ray did show small bilateral pleural effusions and hyperinflation with scarring. somewhat short of breath likely because of anemia but she does give a history of COPD and felt to be in congestive heart failure at present. supplemental oxygen as needed. BNP yesterday on 02/22 was 2030 Hx. 11/04/2019 BNP 724, 10/29/2021 BNP 7260 ECHO on 11/29/21 showed: Left ventricular systolic function is normal, estimated at 60-65%. LV diastolic function is abnormal. Moderate pulmonary hypertension, estimated pulmonary arterial systolic pressure is 53 mmHg. pericardium appears thickened pericardium.Pleural effusion is seen. (4) COPD (chronic obstructive pulmonary disease): Qualifiers: COPD type: emphysema Emphysema type: unspecified Qualified Code(s): J43.9 - Emphysema, unspecified Code(s): J44.9 - Chronic obstructive pulmonary disease, unspecified Status: Acute Assessment and Plan: Not actively wheezing no SOB at this time, no cough. Add inhalers and nebulizers and supplemental oxygen as needed. (5) GERD (gastroesophageal reflux disease): Code(s): K21.9 - Gastro-esophageal reflux disease without esophagitis Status: Acute Assessment and Plan: As recommended by GI physician, ordered daily PO pantoprazole for possibility of gastritis or ulcer disease. Denies any abdominal discomfort or chest pain or pressure (6) Atrial fibrillation with RVR: Code(s): I48.91 - Unspecified atrial fibrillation Status: Acute Assessment and Plan: Patient currently denies any dyspnea or shortness of breath, denies chest pain or chest pressure Continue amiodarone Continue to monitor Holding Xarelto Telemetry monitoring, vital signs q.4 hour, heart rate controlled at this time with a heart rate in the 60s and 70s Repeat EKG after hemoglobin stabilizes Troponin negative on 02/22 and 02/23 Subjective Date/time seen: 02/23/22 07:56 Review of Systems Constitutional: Constitutional: Denies chills, Reports fatigue, Denies fever(s), Reports lethargy and Reports weakness Eyes: Eyes: Denies change in vision ENT: Denies dysphagia and Denies odynophagia Cardiovasc
[2022-02-23 08:25] LABS: Mean Corpuscular Hemoglobin 24.9 pg (26-34); Mean Corpuscular Volume 85.8 fl (80-100); Mean Platelet Volume 9.7 fl (7.4-10.4); Platelet Count Result 423 k/mm3 (150-375); Red Blood Count 1.97 M/mm3 (4.2-5.4); Red Cell Distribution Width 18.2 % (11.5-14.5); White Blood Count 5.1 K/mm3 (4.5-10.0)
[2022-02-23 08:30] LABS: Hemoglobin 4.9 g/dL (12.0-15.0)
[2022-02-23 08:31] LABS: Hematocrit 16.9 % (37.0-47.0)
[2022-02-23 08:42] LABS: Alanine Aminotransferase 16 U/L (4-35); Albumin Level 2.9 g/dL (3.5-5.1); Alkaline Phosphatase 98 U/L (38-126); Anion Gap 4 mmol/L (8-16); Aspartate Amino Transferase 28 U/L (14-36); Bilirubin,Total 1.3 mg/dL (0.2-1.3); Blood Urea Nitrogen 25 mg/dL (7-17); Calcium 7.8 mg/dL (8.4-10.2); Carbon Dioxide 22 mmol/L (22-30); Chloride 108 mmol/L (98-107); Estimated CRCL calculation 36 ml/min; Estimated Glomerular Filt Rate 60; Glucose 113 mg/dL (65-110); Potassium 3.5 mmol/L (3.4-5.0); Sodium 134 mmol/L (137-145)
[2022-02-23 08:43] LABS: Magnesium 2.1 mg/dL (1.6-2.3); Phosphorus 3.1 mg/dL (2.5-4.5)
--- NOTE | 2022-02-23 08:51 | WPDGICN ---
Assessment and Plan Assessment and plan (1) Anemia: Qualifiers: Anemia type: iron deficiency Iron deficiency anemia type: chronic blood loss Qualified Code(s): D50.0 - Iron deficiency anemia secondary to blood loss (chronic) Code(s): D64.9 - Anemia, unspecified Status: Acute Assessment and Plan: Patient with profound anemia significant decline in hemoglobin noted compared to previous labs. Suspect she could have had GI bleeding given her anticoagulation for atrial fibrillation. No evidence of bleeding by history nor observation. Plan is to obtain stool Hemoccult as well as iron studies. Initially patient should be transfused to a stable hemoglobin. Elective GI evaluation can be performed after her medical status is more stable. Patient is somewhat short of breath likely because of anemia but she does give a history of COPD and felt to be in congestive heart failure at present. This should be corrected prior to any invasive testing. She is rather elderly with poor memory and further invasive testing will only be performed after code status is clarified with family. Agree with covering patient with pantoprazole for possibility of gastritis or ulcer disease initially. (2) CHF (congestive heart failure): Qualifiers: Heart failure chronicity: acute on chronic Heart failure type: unspecified Qualified Code(s): I50.9 - Heart failure, unspecified Code(s): I50.9 - Heart failure, unspecified Status: Acute (3) COPD (chronic obstructive pulmonary disease): Qualifiers: COPD type: emphysema Emphysema type: unspecified Qualified Code(s): J43.9 - Emphysema, unspecified Code(s): J44.9 - Chronic obstructive pulmonary disease, unspecified Status: Acute (4) Atrial fibrillation: Qualifiers: Atrial fibrillation type: unspecified chronic Qualified Code(s): I48.20 - Chronic atrial fibrillation, unspecified Code(s): I48.91 - Unspecified atrial fibrillation Status: Acute (5) Chronic anticoagulation: Code(s): Z79.01 - assisted (current) use of anticoagulants Status: Acute Assessment and Plan: Given patient's decline in hemoglobin and concern over bleeding anticoagulation with Xarelto should be held unless absolutely necessary. GI Consult Note Consult date/time: 02/23/22 08:51 HPI: Mónica Blum is a 86 year old female I am asked to see at the request of the hospitalist service. I am asked to see because of profound anemia. Patient has significant memory loss and is unable to add any useful history. According to her chart, The patient has a baseline history of atrial fibrillation for which she is on Xarelto anticoagulation. She was increasingly short of breath over the last several weeks. For this reason she presented to the emergency room where she was found to have rather profound anemia with a hemoglobin of 4.0. No history of bleeding was elicited. Patient currently denies any bleeding. She denies any abdominal pain. She has had no bruising. Nor other signs of blood loss. Review of Systems Review of Systems: ROS unobtainable: Yes unobtainable due to mental status PMFSH Past Medical History Medical History Afib Anemia Arthritis of knee, right Back pain Depression Emphysema, unspecified CXR 10/2019 GERD (gastroesophageal reflux disease) Left elbow fracture Leg fracture, right Shingles UTI (urinary tract infection) Surgical History Surgical History History of appendectomy History of tonsillectomy Status post cataract extraction of both eyes with insertion of intraocular lens Family History Family History Father Acute myocardial infarction Mother Alcoholism Sibling Cirrhosis Social History Social History (Reviewed
[2022-02-23] MEDS: MIDODRINE HCL 2.5 MG TABLET 5 MG PO ×2 (09:21→16:17)
[2022-02-23] MEDS: ESCITALOPRAM OXALATE 10 MG TABLET PO (09:22)
[2022-02-23] MEDS: METOPROLOL TARTRATE 25 MG TABLET PO ×2 (09:22→20:08)
[2022-02-23] MEDS: AMIODARONE HCL 200 MG TABLET 400 MG PO (09:22)
--- NOTE | 2022-02-23 10:17 | WPDCDIQUERY2 ---
CDI Query Clarification Request 02/22 ER Physician documented: CHF (congestive heart failure) Qualifiers: Heart failure type: unspecified Heart failure chronicity: acute on chronic Qualified Code(s): I50.9 - Heart failure, unspecified 02/23 Hospitalist documented: CHF (congestive heart failure): Qualifiers: Heart failure chronicity: acute on chronic Heart failure type: unspecified Qualified Code(s): I50.9 - Heart failure, unspecified Code(s): I50.9 - Heart failure, unspecified Status: Acute Assessment and Plan: No signs of acute decompensation. Chest X-Ray 02/22/22 20:42 IMPRESSION: Small bilateral pleural effusions versus chronic blunting from hyperinflation and scarring. Please clarify if Acute on Chronic (Congestive Heart Failure) is: -Systolic -Diastolic -Combined -Other -Unable to determine <Tahmina Lindsay - Last Filed: 02/23/22 10:24> Clarified Diagnosis (1) CHF (congestive heart failure): Qualifiers: Heart failure chronicity: acute on chronic Heart failure type: unspecified Qualified Code(s): I50.9 - Heart failure, unspecified <Tahmina Lindsay - Last Filed: 02/23/22 10:24> Code(s): I50.9 - Heart failure, unspecified <Tahmina Lindsay - Last Filed: 02/23/22 10:24> Status: Acute <Tahmina Lindsay - Last Filed: 02/23/22 10:24> Assessment and Plan: Diastolic related Congestive Heart Failure ECHO showed: Left ventricular systolic function is normal, estimated at 60-65%. The left ventricular diastolic function is abnormal. <Gabriella Khoury NP - Last Filed: 02/23/22 18:27>
--- NOTE | 2022-02-23 11:18 | PC.NURSE ---
Pt to receive x2 units of blood this shift, tolerating well order to recheck cbc x1 hour after transfusions are completed per Gabriella Khoury, critical hemoglobin and hematocrit report to Gabriella Khoury this morning 4.16,
[2022-02-23] MEDS: PANTOPRAZOLE 40 MG TABLET PO (15:00)
--- NOTE | 2022-02-23 16:28 | PC.NURSE ---
timed cbc order for 1700 per Vanessa Khoury.
[2022-02-23 16:55] LABS: Basophils Absolute Auto 0.1 K/mm3 (0.0-0.1); Basophils Percent Auto 1.2 % (0.2-1.2); Eosinophils Absolute Auto 0.1 K/mm3 (0-0.3); Eosinophils Percent Auto 1.6 % (0-4.4); Hematocrit 28.1 % (37.0-47.0); Hemoglobin 8.9 g/dL (12.0-15.0); Immature Granulocyte Absolute 0.02 K/mm3 (0.00-0.031); Immature Granulocyte Percent A 0.3 % (0-0.5); Lymphocytes Absolute Auto 1.03 K/mm3 (0.9-3.2); Mean Corpuscular HGB Conc 31.7 g/dl (32-36); Mean Corpuscular Volume 85.2 fl (80-100); Mean Platelet Volume 9.6 fl (7.4-10.4); Monocytes Percent Auto 14.9 % (2.6-8.5); Neutrophils Absolute Auto 4.6 K/mm3 (1.3-6.7); Nucleated Red Blood Cells Absolute Auto 0.5 K/mm3 (0.0-0.012); Platelet Count Result 424 k/mm3 (150-375); Red Cell Distribution Width 15.9 % (11.5-14.5); White Blood Count 6.9 K/mm3 (4.5-10.0)
[2022-02-23 17:30] LABS: Ovalocytes 1+ (NORMAL); Platelet Estimate Increased (Adequate)
[2022-02-23 18:03] LABS: Troponin I < 0.012 ng/mL (0.000-0.034)
[2022-02-23 18:17] LABS: Iron 107 ug/dL (37-170)
[2022-02-23 18:26] LABS: Percent Iron Saturation 22 % (20-50)
[2022-02-23 19:23] LABS: Folic Acid 13.7 ng/mL (2.76->20)
[2022-02-23 23:14] LABS: Hematocrit 28.5 % (37.0-47.0); Hemoglobin 8.6 g/dL (12.0-15.0)
[2022-02-24] VITALS (10 sets, daily range): BP systolic 90–107; BP diastolic 53–65; PULSE 61–114; RESP 16–17; TEMP 36–36.7; O2SAT 91–99
[2022-02-24 05:54] LABS: Hemoglobin 8.3 g/dL (12.0-15.0)
[2022-02-24] MEDS: AMIODARONE HCL 200 MG TABLET 400 MG PO (08:56)
[2022-02-24] MEDS: MIDODRINE HCL 2.5 MG TABLET 5 MG PO ×2 (08:57→17:19)
[2022-02-24] MEDS: ESCITALOPRAM OXALATE 10 MG TABLET PO (08:57)
[2022-02-24] MEDS: PANTOPRAZOLE 40 MG TABLET PO (08:58)
[2022-02-24] MEDS: PEG (High)/E-LYTE SOLN 4,000 ML BTL 4000 ML PO (09:01)
[2022-02-24 09:11] LABS: IFOB Positive Control Positive; Immunochemical Fecal Occult Bl Positive (N)
--- NOTE | 2022-02-24 10:33 | PC.NURSE ---
pt's daughter, Francy, called wanting an update. I informed her of the planned EGD and colonoscopy tomorrow. Francy informed me that pt is confused and it varies from slightly on good days to extremely on bad days. Francy also stated that last night pt was extremely confused. She confirmed that pt will always pull out IVs, break things, etc. because she doesn't understand. I reassured her that we will do our best to keep her safe.
[2022-02-24 11:23] LABS: Hematocrit 26.8 % (37.0-47.0); Hemoglobin 8.4 g/dL (12.0-15.0)
--- NOTE | 2022-02-24 12:55 | PM.IMPN ---
Progress Note: A&P Assessment and Plan (1) Anemia: Qualifiers: Anemia type: iron deficiency Iron deficiency anemia type: chronic blood loss Qualified Code(s): D50.0 - Iron deficiency anemia secondary to blood loss (chronic) Code(s): D64.9 - Anemia, unspecified Status: Acute Assessment and Plan: Hemoglobin was 4.0 on presentation She was transfused 3 units on 02/23/22 Hemoglobin stabilized at 8.4 today Stool occult blood test was positive Xarelto on hold Appreciate gastroenterology consultation Continue Protonix IV Monitor H&H q6h (2) CHF (congestive heart failure): Qualifiers: Heart failure chronicity: acute on chronic Heart failure type: unspecified Qualified Code(s): I50.9 - Heart failure, unspecified Code(s): I50.9 - Heart failure, unspecified Status: Acute Assessment and Plan: Presented with complaints of shortness of breath. BNP 1999. CXR with small bilateral pleural effusions Patient appears euvolemic at this time Echocardiogram from November 2021 shows normal EF 60-65% with abnormal diastolic function Monitor intake and output and weigh daily. Heart healthy diet (3) Chronic anticoagulation: Code(s): Z79.01 - [facility] care (current) use of anticoagulants Status: Acute Assessment and Plan: Patient on Xarelto due to atrial fibrillation Xarelto on hold in light of anemia (4) COPD (chronic obstructive pulmonary disease): Qualifiers: COPD type: emphysema Emphysema type: unspecified Qualified Code(s): J43.9 - Emphysema, unspecified Code(s): J44.9 - Chronic obstructive pulmonary disease, unspecified Status: Acute Assessment and Plan: Not in acute exacerbation Albuterol as needed (5) Atrial fibrillation: Code(s): I48.91 - Unspecified atrial fibrillation Status: Acute Assessment and Plan: Rate is controlled Continue amiodarone Metoprolol on hold as blood pressures have been somewhat soft. Monitor trends closely Subjective Date/time seen: 02/24/22 12:55 Interval history: Date of service: 02/24/2022 Mónica Blum is an 86-year-old female with a history of anemia, atrial fibrillation on chronic anticoagulation, depressio, who is seen in follow-up for anemia. The patient states that she feels ?exhausted? today and states she is ?not feeling well?. She does appear to be confused and is a poor historian. I asked her if she feels short of breath and she states that she is ?panting?. She denies cough. No wheezing. Denies dizziness or lightheadedness. States she had a bowel movement today and denies any blood in her stool. She denies hematuria or dysuria. She denies feeling weak. She has no additional concerns. Review of Systems Review of Systems: All systems reviewed & are unremarkable except as noted in HPI and below Exam Narrative: General: Thin, frail 86 year-old female, semi-recumbent in bed, comfortable, NARD Neuro: awake, alert and oriented to self, can state the president but not the month, year, or location, speech clear, no focal neuro deficits noted HEENMT: normocephalic, atraumatic, EOMI, sclerae anicteric, moist oral mucosa Respiratory: clear to auscultation bilaterally, nonlabored breathing Cardio: regular rate, regular rhythm with S1-S2 Abdomen: nondistended, normoactive bowel sounds, soft, nontender to palpation Extremities: no edema, erythema, or tenderness to palpation, DP pulses 2+ bilaterally Skin: no rashes or lesions, warm and dry Psych: appropriate mood and affect, judgment and insight fair Objective Data Vital Signs Vital Signs: Vital Signs - 24 hr 02/23/22 13:11 02/23/22 14:00 02/23/22 14:11 Temperature 98 F 98.9 F 98.6 F Pulse Rate 62 70 62 Respiratory Rate 20 16 18 Blood Pressure 98/58 L 98/47 L 104/69 Pulse Oximetry 98 89 L 100 02/23/22 15:11 02/23/22 16:00 02/23/22 16:11 Temperature 98.6 F 98.2 F P
--- NOTE | 2022-02-24 14:07 | WPDGIPROGNO ---
Progress Note: A&P Assessment and Plan (1) Chronic anticoagulation: Code(s): Z79.01 - [employer] (current) use of anticoagulants Status: Acute Assessment and Plan: Anticoagulation taken because of atrial fibrillation likely contributes to GI blood loss. Anticoagulation now on hold. Anticipation of colonoscopy an EGD tomorrow to evaluate bleeding and anemia. (2) Atrial fibrillation: Code(s): I48.91 - Unspecified atrial fibrillation Status: Acute (3) Anemia: Qualifiers: Anemia type: iron deficiency Iron deficiency anemia type: chronic blood loss Qualified Code(s): D50.0 - Iron deficiency anemia secondary to blood loss (chronic) Code(s): D64.9 - Anemia, unspecified Status: Acute Assessment and Plan: Patient with profound anemia suggestive of GI bleeding. Patient has been on anticoagulation which will need to be held until his safety reestablished. Plan to proceed with colonoscopy an EGD tomorrow after preparation today. (4) CHF (congestive heart failure): Qualifiers: Heart failure chronicity: acute on chronic Heart failure type: unspecified Qualified Code(s): I50.9 - Heart failure, unspecified Code(s): I50.9 - Heart failure, unspecified Status: Acute (5) COPD (chronic obstructive pulmonary disease): Qualifiers: COPD type: emphysema Emphysema type: unspecified Qualified Code(s): J43.9 - Emphysema, unspecified Code(s): J44.9 - Chronic obstructive pulmonary disease, unspecified Status: Acute (6) Impaired cognition: Code(s): R41.89 - Other symptoms and signs involving cognitive functions and awareness Status: Acute Assessment and Plan: Patient appears to have early dementia. Subjective Date/time seen: 02/24/22 14:07 Patient alert comfortable this morning. Still a poor historian appears to have early dementia. No signs of active bleeding. Stool confirmed to be heme-positive. Review of Systems Review of Systems: ROS unobtainable: Yes unobtainable due to medical condition Exam Narrative: Physical exam reveals patient be alert comfortable at rest. HEENT exam is anicteric. Lungs are clear to auscultation and percussion. Heart is without murmur or extra sounds. Abdomen bowel sounds are present soft nontender with no organomegaly. Objective Data Vital Signs Vital Signs: Vital Signs - 24 hr 02/23/22 14:11 02/23/22 15:11 02/23/22 16:00 Temperature 98.6 F 98.6 F Pulse Rate 62 70 64 Respiratory Rate 18 18 Blood Pressure 104/69 104/75 Pulse Oximetry 100 100 02/23/22 16:11 02/23/22 16:18 02/23/22 20:00 Temperature 98.2 F 98.2 F Pulse Rate 60 60 63 Respiratory Rate 20 20 Blood Pressure 114/65 114/65 Pulse Oximetry 100 100 98 02/23/22 20:08 02/23/22 22:00 02/24/22 00:00 Temperature 98.0 F Pulse Rate 63 65 62 Respiratory Rate 16 Blood Pressure 118/64 Pulse Oximetry 97 02/24/22 04:00 02/24/22 05:56 02/24/22 08:56 Temperature 98.1 F Pulse Rate 64 61 74 Respiratory Rate 16 Blood Pressure 90/55 L Pulse Oximetry 98 02/24/22 12:00 02/24/22 13:46 Temperature 96.8 F L Pulse Rate 69 114 H Respiratory Rate 17 Blood Pressure 107/65 Pulse Oximetry 99 Intake/Output Intake/Output: Intake & Output 02/21/22 02/22/22 02/23/22 02/24/22 23:59 23:59 23:59 23:59 Intake Total 1594 520 Output Total 0 900 Balance 1594 -380 Meds/Results Medications: Active Medications Generic Name Dose Route Start Last Admin Trade Name Freq PRN Reason Stop Dose Admin Albuterol 2 puff 02/24/22 13:30 Albuterol Sulfate (*Sp) Aerosol 1 Puff INHALATION Q6HRT PRN Shortness Of Breath Amiodarone HCl 400 mg 02/23/22 08:00 02/24/22 08:56 Amiodarone Hcl 200 Mg Tablet PO 400 mg DAILY@0800 DAYANARA Administration Diphenhydramine HCl 25 mg 02/23/22 00:37 Diphenhydramine Hcl Cap 25 Mg Capsule PO Q6H PRN Itching
[2022-02-24 17:25] LABS: Hemoglobin 8.7 g/dL (12.0-15.0)
[2022-02-24 23:47] LABS: Hemoglobin 8.3 g/dL (12.0-15.0)
[2022-02-25] VITALS (9 sets, daily range): BP systolic 95–102; BP diastolic 55–71; PULSE 59–93; RESP 14–20; TEMP 36.2–37.3; O2SAT 91–100
[2022-02-25 06:14] LABS: Hematocrit 27.9 % (37.0-47.0); Hemoglobin 8.5 g/dL (12.0-15.0); Mean Corpuscular HGB Conc 30.5 g/dl (32-36); Mean Corpuscular Hemoglobin 26.9 pg (26-34); Mean Corpuscular Volume 88.3 fl (80-100); Mean Platelet Volume 9.9 fl (7.4-10.4); Platelet Count Result 409 k/mm3 (150-375); Red Blood Count 3.16 M/mm3 (4.2-5.4); Red Cell Distribution Width 17.5 % (11.5-14.5); White Blood Count 6.9 K/mm3 (4.5-10.0)
[2022-02-25 06:24] LABS: Anion Gap 8 mmol/L (8-16); Blood Urea Nitrogen 24 mg/dL (7-17); Calcium 7.9 mg/dL (8.4-10.2); Carbon Dioxide 22 mmol/L (22-30); Chloride 106 mmol/L (98-107); Estimated CRCL calculation 39 ml/min; Estimated Glomerular Filt Rate 60; Glucose 94 mg/dL (65-110); Potassium 3.2 mmol/L (3.4-5.0); Sodium 136 mmol/L (137-145)
[2022-02-25] MEDS: AMIODARONE HCL 200 MG TABLET 400 MG PO (07:59)
[2022-02-25] MEDS: MIDODRINE HCL 2.5 MG TABLET 5 MG PO ×2 (09:55→16:28)
[2022-02-25 11:08] LABS: Hematocrit 29.5 % (37.0-47.0); Hemoglobin 9.1 g/dL (12.0-15.0)
--- NOTE | 2022-02-25 11:31 | WPDANESEPPF ---
Anes - Initial Pre Proc Eval Procedure: Operation Date: 02/25/22 13:00 Proposed Procedures p Esophagogastroduodenoscopy & Colonoscopy - Hector Cunha MD Date/Time: 02/25/22 11:31 Surgeon: Kirti Umaña PA-C Pre Op Diagnosis: Severe Anemia, CHF,Pleural Effusion, COPD,GI Bleed Patient Data Age: 86 Gender: F Height: 1.7 m Weight: 61.6 kg Last Vital Signs Temp 36.2 C L 02/25/22 07:59 Pulse 78 02/25/22 07:59 Resp 20 02/25/22 07:59 BP 98/55 L 02/25/22 08:04 Pulse Ox 98 02/25/22 07:59 Allergies Allergy/AdvReac Type Severity Reaction Status Date / Time Penicillins Allergy Unknown Unknown Verified 02/25/22 11:33 ciprofloxacin [From Cipro] Allergy Hives Verified 02/25/22 11:33 Sulfa (Sulfonamide Allergy Hives Verified 02/25/22 11:33 Antibiotics) Home Medications Medication Instructions Recorded Confirmed Type Xarelto 20 mg PO DAILY 10/29/21 02/23/22 History diphenhydramine HCl [Benadryl] 25 mg PO Q6H PRN 11/27/21 02/23/22 History metoprolol tartrate 25 mg PO BID 11/27/21 02/23/22 History amiodarone [Pacerone] 400 mg PO DAILY #30 tablet 12/01/21 02/23/22 Rx midodrine 5 mg PO BID #60 tablet 12/01/21 02/23/22 Rx docusate sodium 100 mg capsule 100 mg PO DAILY 12/09/21 02/23/22 History escitalopram oxalate 10 mg tablet 10 mg PO DAILY #90 tablet 02/09/22 02/23/22 Rx Laboratory Tests 02/24/22 02/24/22 02/25/22 17:02 23:16 05:54 WBC 6.9 K/mm3 K/mm3 (4.5-10.0) RBC 3.16 M/mm3 L M/mm3 (4.2-5.4) Hgb 8.7 g/dL L g/dL 8.3 g/dL L g/dL 8.5 g/dL L g/dL (12.0-15.0) (12.0-15.0) (12.0-15.0) Hct 28.0 % L % 27.0 % L % 27.9 % L % (37.0-47.0) (37.0-47.0) (37.0-47.0) MCV 88.3 fl fl (80-100) MCH 26.9 pg pg (26-34) MCHC 30.5 g/dl L g/dl (32-36) RDW 17.5 % H % (11.5-14.5) Plt Count 409 k/mm3 H k/mm3 (150-375) MPV 9.9 fl fl (7.4-10.4) Sodium Potassium Chloride Carbon Dioxide Anion Gap BUN Creatinine Estim Creat Clear Calc Estimated GFR Glucose Calcium 02/25/22 02/25/22 05:54 10:46 WBC RBC Hgb 9.1 g/dL L g/dL (12.0-15.0) Hct 29.5 % L % (37.0-47.0) MCV MCH MCHC RDW Plt Count MPV Sodium 136 mmol/L L mmol/L (137-145) Potassium 3.2 mmol/L L mmol/L (3.4-5.0) Chloride 106 mmol/L mmol/L (98-107) Carbon Dioxide 22 mmol/L mmol/L (22-30) Anion Gap 8 mmol/L mmol/L (8-16) BUN 24 mg/dL H mg/dL (7-17) Creatinine 0.90 mg/dL mg/dL (0.7-1.0) Estim Creat Clear Calc 39 ml/min ml/min Estimated GFR 60 (59 - ) Glucose 94 mg/dL mg/dL (65-110) Calcium 7.9 mg/dL L mg/dL (8.4-10.2) Patient hx anesthesia problems: none Family hx anesthesia problems: none Results Review: All pre-operative results and documents have been reviewed as part of the pre-operative evaluation. [facility] Past Medical History Medical History Afib Anemia Arthritis of knee, right Back pain Depression Emphysema, unspecified CXR 10/2019 GERD (gastroesophageal reflux disease) Left elbow fracture Leg fracture, right Shingles UTI (urinary tract infection) Surgical History Surgical History History of appendectomy History of tonsillectomy Status post cataract extraction of both eyes with insertion of intraocular lens Family History Family History Father Acute myocardial infarction Mother Alcoholism Sibling Cirrhosis Social History Social History Social History: She is
[2022-02-25] MEDS: LACTATED RINGERS 1,000 ML 150 ML IV CONT (11:35)
--- NOTE | 2022-02-25 12:14 | SUR.OPER ---
EGD ended at 1209. Colonoscopy started at 1214.
--- NOTE | 2022-02-25 13:18 | SUR.PHASEII ---
Dr Cunha ordered a xray. Pt transferred to xray on 2 L O2. Report called to Ivonne Velazquez.
--- NOTE | 2022-02-25 15:01 | P.PNIM_ITS ---
Progress Note: A&P Assessment and Plan (1) Anemia: Qualifiers: Anemia type: iron deficiency Iron deficiency anemia type: chronic blood loss Qualified Code(s): D50.0 - Iron deficiency anemia secondary to blood loss (chronic) Code(s): D64.9 - Anemia, unspecified Status: Acute Assessment and Plan: Hemoglobin was 4.0 on presentation * She was transfused 3 units on 02/23/22 * Hemoglobin stabilized ranging from 8.5-9.0 today * Stool occult blood test was positive * Xarelto on hold * Appreciate gastroenterology consultation * Underwent EGD today which did not show any evidence for bleeding. Colonoscopy showed few internal hemorrhoids also not felt to be the cause of bleeding * Plan for small-bowel follow-through to evaluate for possible small bowel bleeding source. Await results * Continue Protonix IV * Monitor H&H q6h (2) CHF (congestive heart failure): Qualifiers: Heart failure chronicity: acute on chronic Heart failure type: unspecified Qualified Code(s): I50.9 - Heart failure, unspecified Code(s): I50.9 - Heart failure, unspecified Status: Acute Assessment and Plan: Presented with complaints of shortness of breath. BNP 1999. CXR with small bilateral pleural effusions * Patient appears euvolemic on exam * Echocardiogram from November 2021 shows normal EF 60-65% with abnormal diastolic function * Monitor intake and output and weigh daily. Heart healthy diet * She is currently requiring supplemental O2 at 1-2 L, though O2 sats are between 98-100%, therefore O2 should be weaned. (3) Chronic anticoagulation: Code(s): Z79.01 - [facility] (current) use of anticoagulants Status: Acute Assessment and Plan: Patient on Xarelto due to atrial fibrillation * Xarelto on hold in light of anemia (4) COPD (chronic obstructive pulmonary disease): Qualifiers: COPD type: emphysema Emphysema type: unspecified Qualified Code(s): J43.9 - Emphysema, unspecified Code(s): J44.9 - Chronic obstructive pulmonary disease, unspecified Status: Acute Assessment and Plan: Not in acute exacerbation * Albuterol as needed (5) Atrial fibrillation: Code(s): I48.91 - Unspecified atrial fibrillation Status: Acute Assessment and Plan: Rate is controlled * Continue amiodarone * Metoprolol on hold as blood pressures have been soft. Monitor trends closely (6) Hypokalemia: Code(s): E87.6 - Hypokalemia Status: Acute Assessment and Plan: Potassium 3.2 today * Administer 40 mEq IV KCl * Monitor BMP (7) Hypotension: Qualifiers: Hypotension type: unspecified hypotension type Qualified Code(s): I95.9 - Hypotension, unspecified Code(s): I95.9 - Hypotension, unspecified Status: Acute Assessment and Plan: BP has been running low in the 90s-100s. * She is asymptomatic * Metoprolol on hold * Continue midodrine * Blood pressures are consistent with prior readings Subjective Date/time seen: 02/25/22 15:01 Interval history: Date of service: 02/25/2022 Mónica Blum is an 86-year-old female with a history of anemia, atrial fibrillation on chronic anticoagulation, depression, who is seen in follow-up for anemia. She is feeling okay today. She had her EGD and colonoscopy today and tolerated this well. She has been eating and drinking without any difficulties. She is not in pain. Denies nausea or vomiting. Denies cough, chest pain, sh
--- NOTE | 2022-02-25 15:01 | PCPTNOTE ---
Pt off floor for procedure. Will attempt at a later time
--- NOTE | 2022-02-25 15:01 | PM.IMPN ---
Progress Note: A&P Assessment and Plan (1) Anemia: Qualifiers: Anemia type: iron deficiency Iron deficiency anemia type: chronic blood loss Qualified Code(s): D50.0 - Iron deficiency anemia secondary to blood loss (chronic) Code(s): D64.9 - Anemia, unspecified Status: Acute Assessment and Plan: Hemoglobin was 4.0 on presentation She was transfused 3 units on 02/23/22 Hemoglobin stabilized ranging from 8.5-9.0 today Stool occult blood test was positive Xarelto on hold Appreciate gastroenterology consultation Underwent EGD today which did not show any evidence for bleeding. Colonoscopy showed few internal hemorrhoids also not felt to be the cause of bleeding Plan for small-bowel follow-through to evaluate for possible small bowel bleeding source. Await results Continue Protonix IV Monitor H&H q6h (2) CHF (congestive heart failure): Qualifiers: Heart failure chronicity: acute on chronic Heart failure type: unspecified Qualified Code(s): I50.9 - Heart failure, unspecified Code(s): I50.9 - Heart failure, unspecified Status: Acute Assessment and Plan: Presented with complaints of shortness of breath. BNP 1999. CXR with small bilateral pleural effusions Patient appears euvolemic on exam Echocardiogram from November 2021 shows normal EF 60-65% with abnormal diastolic function Monitor intake and output and weigh daily. Heart healthy diet She is currently requiring supplemental O2 at 1-2 L, though O2 sats are between 98-100%, therefore O2 should be weaned. (3) Chronic anticoagulation: Code(s): Z79.01 - [employer] (current) use of anticoagulants Status: Acute Assessment and Plan: Patient on Xarelto due to atrial fibrillation Xarelto on hold in light of anemia (4) COPD (chronic obstructive pulmonary disease): Qualifiers: COPD type: emphysema Emphysema type: unspecified Qualified Code(s): J43.9 - Emphysema, unspecified Code(s): J44.9 - Chronic obstructive pulmonary disease, unspecified Status: Acute Assessment and Plan: Not in acute exacerbation Albuterol as needed (5) Atrial fibrillation: Code(s): I48.91 - Unspecified atrial fibrillation Status: Acute Assessment and Plan: Rate is controlled Continue amiodarone Metoprolol on hold as blood pressures have been soft. Monitor trends closely (6) Hypokalemia: Code(s): E87.6 - Hypokalemia Status: Acute Assessment and Plan: Potassium 3.2 today Administer 40 mEq IV KCl Monitor BMP (7) Hypotension: Qualifiers: Hypotension type: unspecified hypotension type Qualified Code(s): I95.9 - Hypotension, unspecified Code(s): I95.9 - Hypotension, unspecified Status: Acute Assessment and Plan: BP has been running low in the 90s-100s. She is asymptomatic Metoprolol on hold Continue midodrine Blood pressures are consistent with prior readings Subjective Date/time seen: 02/25/22 15:01 Interval history: Date of service: 02/25/2022 Mónica Blum is an 86-year-old female with a history of anemia, atrial fibrillation on chronic anticoagulation, depression, who is seen in follow-up for anemia. She is feeling okay today. She had her EGD and colonoscopy today and tolerated this well. She has been eating and drinking without any difficulties. She is not in pain. Denies nausea or vomiting. Denies cough, chest pain, shortness breast. States she has not been out of bed today. She is confused and is oriented to self and location only, cannot provide details regarding hospitalization, or accurately state the month, year, or president. Review of Systems Review of Systems: All systems reviewed & are unremarkable except as noted in HPI and below Exam Narrative: General: Thin, frail 86 year-old female, sitting up in bed, comfortable, NARD Neuro: awake, alert an
[2022-02-25] MEDS: POTASSIUM CHLORIDE INJ 40 MEQ in SODIUM CHLORIDE 0.9% IV 500 ML 130 MEQ IVPB (15:18)
--- NOTE | 2022-02-25 16:16 | PCCCNOTE ---
On 02/25/22, the student, [Kaitlyn Faye], provided care and completed [facility] documentation on this patient. I have reviewed the student's documentation and agree with the findings.
[2022-02-25] MEDS: ESCITALOPRAM OXALATE 10 MG TABLET PO (16:20)
[2022-02-25 17:24] LABS: Hematocrit 29.3 % (37.0-47.0); Hemoglobin 8.7 g/dL (12.0-15.0)
[2022-02-25 22:57] LABS: Hematocrit 26.7 % (37.0-47.0); Hemoglobin 8.1 g/dL (12.0-15.0)
[2022-02-26] VITALS (8 sets, daily range): BP systolic 92–112; BP diastolic 50–82; PULSE 66–90; RESP 14–18; TEMP 35.9–36.5; O2SAT 90–98
[2022-02-26 06:21] LABS: Hematocrit 26.3 % (37.0-47.0); Hemoglobin 7.9 g/dL (12.0-15.0); Mean Corpuscular Hemoglobin 26.6 pg (26-34); Mean Corpuscular Volume 88.6 fl (80-100); Mean Platelet Volume 9.7 fl (7.4-10.4); Platelet Count Result 352 k/mm3 (150-375); Red Blood Count 2.97 M/mm3 (4.2-5.4); Red Cell Distribution Width 18.4 % (11.5-14.5); White Blood Count 7.6 K/mm3 (4.5-10.0)
--- NOTE | 2022-02-26 06:34 | PC.NURSE ---
Patient is off O2 completely at this point. Oxygen saturation is in mid 90's while resting. Will continue to monitor and have the pt put back on O2 if it starts to drop.
[2022-02-26 06:36] LABS: Anion Gap 7 mmol/L (8-16); Blood Urea Nitrogen 20 mg/dL (7-17); Carbon Dioxide 22 mmol/L (22-30); Chloride 106 mmol/L (98-107); Estimated CRCL calculation 36 ml/min; Estimated Glomerular Filt Rate 60; Glucose 119 mg/dL (65-110); Potassium 4.1 mmol/L (3.4-5.0); Sodium 135 mmol/L (137-145)
--- NOTE | 2022-02-26 07:43 | WPDANESPN ---
Anes - Prog Note Post-Op Date/Time: 02/26/22 07:43 Cardiovascular status: normal Respiratory status: normal Airway patency: baseline Mental status: baseline Post-Op hydration status: normal Vital Signs: Last Vital Signs Temp 36.3 C L 02/26/22 06:00 Pulse 82 02/26/22 06:00 Resp 18 02/26/22 06:00 BP 102/82 02/26/22 06:00 Pulse Ox 97 02/26/22 06:00 Pain Score (VAS): 3 I/O: Intake & Output 02/25/22 02/25/22 02/26/22 15:59 23:59 07:59 Intake Total 500 620 500 Balance 500 620 500 Laboratory Tests 02/26/22 06:14 02/26/22 06:14 02/25/22 02/25/22 02/25/22 10:46 17:18 22:51 WBC RBC Hgb 9.1 L 8.7 L 8.1 L Hct 29.5 L 29.3 L 26.7 L MCV MCH MCHC RDW Plt Count MPV Sodium Potassium Chloride Carbon Dioxide Anion Gap BUN Creatinine Estim Creat Clear Calc Estimated GFR Glucose Calcium 02/26/22 02/26/22 06:14 06:14 WBC 7.6 RBC 2.97 L Hgb 7.9 L Hct 26.3 L MCV 88.6 MCH 26.6 MCHC 30.0 L RDW 18.4 H Plt Count 352 MPV 9.7 Sodium 135 L Potassium 4.1 Chloride 106 Carbon Dioxide 22 Anion Gap 7 L BUN 20 H Creatinine 0.90 Estim Creat Clear Calc 36 Estimated GFR 60 Glucose 119 H Calcium 8.0 L Post-procedural complaints: none Patient Feedback: Patient satisfied with anesthetic care.
[2022-02-26] MEDS: MIDODRINE HCL 2.5 MG TABLET 5 MG PO ×2 (08:56→17:51)
[2022-02-26] MEDS: AMIODARONE HCL 200 MG TABLET 400 MG PO (08:56)
[2022-02-26] MEDS: ESCITALOPRAM OXALATE 10 MG TABLET PO (08:57)
--- NOTE | 2022-02-26 11:13 | P.PNIM_ITS ---
Progress Note: A&P Assessment and Plan (1) Anemia: Qualifiers: Anemia type: iron deficiency Iron deficiency anemia type: chronic blood loss Qualified Code(s): D50.0 - Iron deficiency anemia secondary to blood loss (chronic) Code(s): D64.9 - Anemia, unspecified Status: Acute Assessment and Plan: Hemoglobin was 4.0 on presentation * She was transfused 3 units on 02/23/22 * Hemoglobin stabilized following transfusion, ranging from about 8-9 * Stool occult blood test was positive * Xarelto on hold * Appreciate gastroenterology consultation * Underwent EGD 02/25 which did not show any evidence for bleeding. Colonoscopy showed few internal hemorrhoids also not felt to be the cause of bleeding * Small-bowel follow-through performed to evaluate for possible small bowel bleeding source. This revealed delayed small bowel transit. Appreciate further Gastroenterology recommendations regarding this. * Continue Protonix IV * Repeat H&H this evening to ensure remaining stable (2) CHF (congestive heart failure): Qualifiers: Heart failure chronicity: acute on chronic Heart failure type: unspecified Qualified Code(s): I50.9 - Heart failure, unspecified Code(s): I50.9 - Heart failure, unspecified Status: Acute Assessment and Plan: Presented with complaints of shortness of breath. BNP 1999. CXR with small bilateral pleural effusions * Patient appears euvolemic on exam * Echocardiogram from November 2021 shows normal EF 60-65% with abnormal diastolic function * Monitor intake and output and weigh daily. Heart healthy diet * She did require up to 2 L supplemental O2 though maintained adequate O2 sats and was not hypoxic. 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 Status: Acute Assessment and Plan: Patient on Xarelto due to atrial fibrillation * Xarelto on hold in light of anemia * Resume when clinically appropriate (4) COPD (chronic obstructive pulmonary disease): Qualifiers: COPD type: emphysema Emphysema type: unspecified Qualified Code(s): J43.9 - Emphysema, unspecified Code(s): J44.9 - Chronic obstructive pulmonary disease, unspecified Status: Acute Assessment and Plan: Not in acute exacerbation * Albuterol as needed (5) Atrial fibrillation: Code(s): I48.91 - Unspecified atrial fibrillation Status: Acute Assessment and Plan: Rate is controlled * Continue amiodarone * Metoprolol on hold as blood pressures have been soft. Monitor trends closely (6) Hypokalemia: Code(s): E87.6 - Hypokalemia Status: Acute Assessment and Plan: Resolved with supplementation * Potassium 4.1 today * Monitor BMP (7) Hypotension: Qualifiers: Hypotension type: unspecified hypotension type Qualified Code(s): I95.9 - Hypotension, unspecified Code(s): I95.9 - Hypotension, unspecified Status: Acute Assessment and Plan: BP has been running low in the 90s-100s systolic. * She is asymptomatic * Metoprolol on hold * Continue midodrine * Blood pressures are consistent with prior readings (8) Dysphagia: Code(s): R13.10 - Dysphagia, unspecified Status: Acute Assessment and Plan: RN noted dysphagia today * Proceed with bedside swallow eval * Aspiration precautions implemented * Provide assistance with meals Subject
--- NOTE | 2022-02-26 11:13 | PM.IMPN ---
Progress Note: A&P Assessment and Plan (1) Anemia: Qualifiers: Anemia type: iron deficiency Iron deficiency anemia type: chronic blood loss Qualified Code(s): D50.0 - Iron deficiency anemia secondary to blood loss (chronic) Code(s): D64.9 - Anemia, unspecified Status: Acute Assessment and Plan: Hemoglobin was 4.0 on presentation She was transfused 3 units on 02/23/22 Hemoglobin stabilized following transfusion, ranging from about 8-9 Stool occult blood test was positive Xarelto on hold Appreciate gastroenterology consultation Underwent EGD 02/25 which did not show any evidence for bleeding. Colonoscopy showed few internal hemorrhoids also not felt to be the cause of bleeding Small-bowel follow-through performed to evaluate for possible small bowel bleeding source. This revealed delayed small bowel transit. Appreciate further Gastroenterology recommendations regarding this. Continue Protonix IV Repeat H&H this evening to ensure remaining stable (2) CHF (congestive heart failure): Qualifiers: Heart failure chronicity: acute on chronic Heart failure type: unspecified Qualified Code(s): I50.9 - Heart failure, unspecified Code(s): I50.9 - Heart failure, unspecified Status: Acute Assessment and Plan: Presented with complaints of shortness of breath. BNP 1999. CXR with small bilateral pleural effusions Patient appears euvolemic on exam Echocardiogram from November 2021 shows normal EF 60-65% with abnormal diastolic function Monitor intake and output and weigh daily. Heart healthy diet She did require up to 2 L supplemental O2 though maintained adequate O2 sats and was not hypoxic. 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 Status: Acute Assessment and Plan: Patient on Xarelto due to atrial fibrillation Xarelto on hold in light of anemia Resume when clinically appropriate (4) COPD (chronic obstructive pulmonary disease): Qualifiers: COPD type: emphysema Emphysema type: unspecified Qualified Code(s): J43.9 - Emphysema, unspecified Code(s): J44.9 - Chronic obstructive pulmonary disease, unspecified Status: Acute Assessment and Plan: Not in acute exacerbation Albuterol as needed (5) Atrial fibrillation: Code(s): I48.91 - Unspecified atrial fibrillation Status: Acute Assessment and Plan: Rate is controlled Continue amiodarone Metoprolol on hold as blood pressures have been soft. Monitor trends closely (6) Hypokalemia: Code(s): E87.6 - Hypokalemia Status: Acute Assessment and Plan: Resolved with supplementation Potassium 4.1 today Monitor BMP (7) Hypotension: Qualifiers: Hypotension type: unspecified hypotension type Qualified Code(s): I95.9 - Hypotension, unspecified Code(s): I95.9 - Hypotension, unspecified Status: Acute Assessment and Plan: BP has been running low in the 90s-100s systolic. She is asymptomatic Metoprolol on hold Continue midodrine Blood pressures are consistent with prior readings (8) Dysphagia: Code(s): R13.10 - Dysphagia, unspecified Status: Acute Assessment and Plan: RN noted dysphagia today Proceed with bedside swallow eval Aspiration precautions implemented Provide assistance with meals Subjective Date/time seen: 02/26/22 11:13 Interval history: Date of service: 02/25/2022 Mónica Blum is an 86-year-old female with a history of anemia, atrial fibrillation on chronic anticoagulation, depression, who is seen in follow-up for anemia. She is feeling well today. She offers no complaints. Specifically, she denies abdominal pain, shortness a breath, cough, blood in her stool, nausea, or vomiting. She states she has had a bowel movement. She also states that she
--- NOTE | 2022-02-26 11:34 | PC.NURSE ---
This RN, Kely Gee, charted under Melissa Friend from 0700 today to 1130 today by mistake.
--- NOTE | 2022-02-26 13:38 | PCSTNOTE ---
Please refer to the Bedside Swallow Evaluation in the EMR. Please note, silent aspiration cannot be ruled out at bedside.
--- NOTE | 2022-02-26 15:53 | WPDGIPROGNO ---
Progress Note: A&P Additional Plan [facility] for Dr. Cunha February 26, 2022 Denies AP, N, V, BRBPR, melena. Confirmed with RN. Patient confused. Fernandez po VSS soft/NT Hct 26 A/P RHONDA on Xarelto - Colon/EGD non-diagnostic - SBFT with delayed SB transit; no SB obstruction - No active bleed - Care with aspirin, NSAIDS and anticoagulants - Acid suppression Dispo per Hospitalist service; hopefully home tomorrow. Follow-up with Dr. Cunha as needed. Thanks, [facility] [phone] Subjective Date/time seen: 02/26/22 15:53 Objective Data Vital Signs Vital Signs: Vital Signs - 24 hr 02/25/22 22:00 02/26/22 06:00 02/26/22 08:00 Temperature 37.3 C 36.3 C L Pulse Rate 59 L 82 90 Respiratory Rate 16 18 18 Blood Pressure 102/71 102/82 Pulse Oximetry 93 97 97 02/26/22 08:56 02/26/22 13:23 02/26/22 13:59 Temperature Pulse Rate 90 Respiratory Rate Blood Pressure 92/50 L Pulse Oximetry 98 02/26/22 14:00 Temperature 35.9 C L Pulse Rate 83 Respiratory Rate 14 Blood Pressure 92/50 L Pulse Oximetry 94 Intake/Output Intake/Output: Intake & Output 02/23/22 02/24/22 02/25/22 02/26/22 23:59 23:59 23:59 23:59 Intake Total 3775 545 5631 500 Output Total 0 900 1200 Balance 1594 20 3920 500 Meds/Results Medications: Active Medications Generic Name Dose Route Start Last Admin Trade Name Freq PRN Reason Stop Dose Admin Albuterol 2 puff 02/24/22 13:30 Albuterol Sulfate (*Sp) Aerosol 1 Puff INHALATION Q6HRT PRN Shortness Of Breath Amiodarone HCl 400 mg 02/23/22 08:00 02/26/22 08:56 Amiodarone Hcl 200 Mg Tablet PO 400 mg DAILY@0800 DAYANARA Administration Diphenhydramine HCl 25 mg 02/23/22 00:37 Diphenhydramine Hcl Cap 25 Mg Capsule PO Q6H PRN Itching Escitalopram Oxalate 10 mg 02/23/22 09:00 02/26/22 08:57 Escitalopram Oxalate 10 Mg Tablet PO 10 mg DAILY DAYANARA Administration Metoprolol Tartrate 25 mg 02/23/22 09:00 02/23/22 20:08 Metoprolol Tartrate 25 Mg Tablet PO 25 mg Q12HR DAYANARA Administration Midodrine 5 mg 02/23/22 09:00 02/26/22 08:56 Midodrine Hcl 2.5 Mg Tablet PO 5 mg BID DAYANARA Administration Radiology Results: ITS Impressions Chest X-Ray 02/22/22 20:42 IMPRESSION: Small bilateral pleural effusions versus chronic blunting from hyperinflation and scarring. Upper GI and Small Bowel X-Ray 02/25/22 21:40 IMPRESSION: Delayed small bowel transit, without evidence of small bowel obstruction Labs Labs: Laboratory Results - last 24 hr 02/25/22 02/25/22 02/26/22 17:18 22:51 06:14 WBC 7.6 RBC 2.97 L Hgb 8.7 L 8.1 L 7.9 L Hct 29.3 L 26.7 L 26.3 L MCV 88.6 MCH 26.6 MCHC 30.0 L RDW 18.4 H Plt Count 352 MPV 9.7 Sodium Potassium Chloride Carbon Dioxide Anion Gap BUN Creatinine Estim Creat Clear Calc Estimated GFR Glucose Calcium 02/26/22 06:14 WBC RBC Hgb Hct MCV MCH MCHC RDW Plt Count MPV Sodium 135 L Potassium 4.1 Chloride 106 Carbon Dioxide 22 Anion Gap 7 L BUN 20 H Creatinine 0.90 Estim Creat Clear Calc 36 Estimated GFR 60 Glucose 119 H Calcium 8.0 L
[2022-02-26 18:50] LABS: Hematocrit 32.8 % (37.0-47.0); Hemoglobin 9.9 g/dL (12.0-15.0)
[2022-02-27] VITALS (12 sets, daily range): BP systolic 75–133; BP diastolic 48–108; PULSE 45–97; RESP 14–18; TEMP 36.1–37.4; O2SAT 88–98
[2022-02-27 05:54] LABS: Hematocrit 28.1 % (37.0-47.0); Hemoglobin 8.2 g/dL (12.0-15.0); Mean Corpuscular HGB Conc 29.2 g/dl (32-36); Mean Corpuscular Hemoglobin 26.3 pg (26-34); Mean Corpuscular Volume 90.1 fl (80-100); Mean Platelet Volume 9.4 fl (7.4-10.4); Platelet Count Result 271 k/mm3 (150-375); Red Blood Count 3.12 M/mm3 (4.2-5.4); Red Cell Distribution Width 19.4 % (11.5-14.5); White Blood Count 11.7 K/mm3 (4.5-10.0)
[2022-02-27 06:04] LABS: Anion Gap 3 mmol/L (8-16); Blood Urea Nitrogen 21 mg/dL (7-17); Calcium 8.2 mg/dL (8.4-10.2); Carbon Dioxide 27 mmol/L (22-30); Chloride 105 mmol/L (98-107); Estimated CRCL calculation 33 ml/min; Estimated Glomerular Filt Rate 53; Glucose 104 mg/dL (65-110); Potassium 3.9 mmol/L (3.4-5.0); Sodium 135 mmol/L (137-145)
[2022-02-27] MEDS: AMIODARONE HCL 200 MG TABLET 400 MG PO (08:41)
[2022-02-27] MEDS: MIDODRINE HCL 2.5 MG TABLET 5 MG PO ×2 (08:41→17:59)
[2022-02-27] MEDS: ESCITALOPRAM OXALATE 10 MG TABLET PO (08:45)
--- NOTE | 2022-02-27 13:37 | P.PNIM_ITS ---
Progress Note: A&P Assessment and Plan (1) Anemia: Qualifiers: Anemia type: iron deficiency Iron deficiency anemia type: chronic blood loss Qualified Code(s): D50.0 - Iron deficiency anemia secondary to blood loss (chronic) Code(s): D64.9 - Anemia, unspecified Status: Acute Assessment and Plan: Hemoglobin was 4.0 on presentation * She was transfused 3 units on 02/23/22 * Hemoglobin stabilized following transfusion, ranging from about 8-9 * Stool occult blood test was positive * Xarelto on hold * Appreciate gastroenterology consultation * Underwent EGD 02/25 which did not show any evidence for bleeding. Colonoscopy showed few internal hemorrhoids also not felt to be the cause of bleeding * Small-bowel follow-through performed to evaluate for possible small bowel bleeding source. This revealed delayed small bowel transit. Appreciate further Gastroenterology recommendations regarding this. * Continue Protonix IV (2) CHF (congestive heart failure): Qualifiers: Heart failure chronicity: acute on chronic Heart failure type: unspecified Qualified Code(s): I50.9 - Heart failure, unspecified Code(s): I50.9 - Heart failure, unspecified Status: Acute Assessment and Plan: Presented with complaints of shortness of breath. BNP 1999. CXR with small bilateral pleural effusions * Patient appears euvolemic on exam * Echocardiogram from November 2021 shows normal EF 60-65% with abnormal diastolic function * Monitor intake and output and weigh daily. Heart healthy diet * She did require up to 2 L supplemental O2 though maintained adequate O2 sats and was not hypoxic. She was able to be weaned to room air. This afternoon she was placed back on 2 L supplemental O2 so she has not been hypoxic. This should be weaned. 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 Discussed risks vs benefits of anticoagulation. Patient and family aware of stroke risk with holding this medication. At this time there more concerned regarding bleed risk and would like to continue to hold Xarelto, especially given her fall risk (4) Orthostatic hypotension: Code(s): I95.1 - Orthostatic hypotension Status: Acute Assessment and Plan: Patient is orthostatic with a 33 point drop in systolic BP from supine to standing * Orthostasis likely triggered her fall today * Continue midodrine. Consider increased dose if no improvement * Encourage adequate fluid intake * Jeffrey hose * Monitor orthostatics q shift (5) Fall: Code(s): W19.XXXA - Unspecified fall, initial encounter Status: Acute Assessment and Plan: Patient fell in the bathroom today (see subjective). Fall was unwitnessed but reports the patient fell on to her buttocks. Denies hitting her head. * Patient and family declined head CT * Fall precautions implemented * Further discussion with family reveals that patient has had frequent falls at home. They still would like the patient to return home on discharge but now or agreeable to home health. * Continue PT/OT (6) COPD (chronic obstructive pulmonary disease): Qualifiers: COPD type: emphysema Emphysema type: unspecified Qualified Code(s): J43.9 - Emphysema, unspecified Code(s): J4
--- NOTE | 2022-02-27 13:37 | PM.IMPN ---
Progress Note: A&P Assessment and Plan (1) Anemia: Qualifiers: Anemia type: iron deficiency Iron deficiency anemia type: chronic blood loss Qualified Code(s): D50.0 - Iron deficiency anemia secondary to blood loss (chronic) Code(s): D64.9 - Anemia, unspecified Status: Acute Assessment and Plan: Hemoglobin was 4.0 on presentation She was transfused 3 units on 02/23/22 Hemoglobin stabilized following transfusion, ranging from about 8-9 Stool occult blood test was positive Xarelto on hold Appreciate gastroenterology consultation Underwent EGD 02/25 which did not show any evidence for bleeding. Colonoscopy showed few internal hemorrhoids also not felt to be the cause of bleeding Small-bowel follow-through performed to evaluate for possible small bowel bleeding source. This revealed delayed small bowel transit. Appreciate further Gastroenterology recommendations regarding this. Continue Protonix IV (2) CHF (congestive heart failure): Qualifiers: Heart failure chronicity: acute on chronic Heart failure type: unspecified Qualified Code(s): I50.9 - Heart failure, unspecified Code(s): I50.9 - Heart failure, unspecified Status: Acute Assessment and Plan: Presented with complaints of shortness of breath. BNP 1999. CXR with small bilateral pleural effusions Patient appears euvolemic on exam Echocardiogram from November 2021 shows normal EF 60-65% with abnormal diastolic function Monitor intake and output and weigh daily. Heart healthy diet She did require up to 2 L supplemental O2 though maintained adequate O2 sats and was not hypoxic. She was able to be weaned to room air. This afternoon she was placed back on 2 L supplemental O2 so she has not been hypoxic. This should be weaned. 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 Discussed risks vs benefits of anticoagulation. Patient and family aware of stroke risk with holding this medication. At this time there more concerned regarding bleed risk and would like to continue to hold Xarelto, especially given her fall risk (4) Orthostatic hypotension: Code(s): I95.1 - Orthostatic hypotension Status: Acute Assessment and Plan: Patient is orthostatic with a 33 point drop in systolic BP from supine to standing Orthostasis likely triggered her fall today Continue midodrine. Consider increased dose if no improvement Encourage adequate fluid intake Jeffrey hose Monitor orthostatics q shift (5) Fall: Code(s): W19.XXXA - Unspecified fall, initial encounter Status: Acute Assessment and Plan: Patient fell in the bathroom today (see subjective). Fall was unwitnessed but reports the patient fell on to her buttocks. Denies hitting her head. Patient and family declined head CT Fall precautions implemented Further discussion with family reveals that patient has had frequent falls at home. They still would like the patient to return home on discharge but now or agreeable to home health. Continue PT/OT (6) COPD (chronic obstructive pulmonary disease): Qualifiers: COPD type: emphysema Emphysema type: unspecified Qualified Code(s): J43.9 - Emphysema, unspecified Code(s): J44.9 - Chronic obstructive pulmonary disease, unspecified Status: Acute Assessment and Plan: Not in acute exacerbation Albuterol as needed (7) Atrial fibrillation: Code(s): I48.91 - Unspecified atrial fibrillation Status: Acute Assessment and Plan: Rate is controlled Continue amiodarone Metoprolol on hold given hypotension. Monitor trends closely (8) Hypokal
--- NOTE | 2022-02-27 20:23 | WPDGIPROGNO ---
Progress Note: A&P Additional Plan [facility] for Dr. Cunha February 27, 2022 Denies AP, N, V, BRBPR, melena. Confirmed with RN. Patient confused. Fernandez po VSS soft/NT Hct 26->28 A/P RHONDA on Xarelto - Colon/EGD non-diagnostic - SBFT with delayed SB transit; no SB obstruction - No active bleed - Care with aspirin, NSAIDS and anticoagulants - Acid suppression Dispo per Hospitalist service; hopefully home tomorrow. Follow-up with Dr. Cunha as needed. Thanks, [facility] [phone] Subjective Date/time seen: 02/27/22 20:23 Objective Data Vital Signs Vital Signs: Vital Signs - 24 hr 02/26/22 22:00 02/27/22 06:00 02/27/22 08:00 Temperature 36.5 C 37.0 C Pulse Rate 66 95 97 Respiratory Rate 18 18 16 Blood Pressure 112/50 L 110/76 Pulse Oximetry 90 96 93 02/27/22 08:41 02/27/22 09:50 02/27/22 10:16 Temperature 36.7 C 36.1 C L Pulse Rate 80 45 L 97 Respiratory Rate 16 16 Blood Pressure 133/108 H 116/50 L Pulse Oximetry 88 L 93 02/27/22 11:23 02/27/22 12:04 02/27/22 14:00 Temperature 36.6 C Pulse Rate 86 Respiratory Rate 14 Blood Pressure 110/60 77/48 L 92/55 L Pulse Oximetry 97 Intake/Output Intake/Output: Intake & Output 02/24/22 02/25/22 02/26/22 02/27/22 23:59 23:59 23:59 23:59 Intake Total 920 5120 1000 1220 Output Total 900 1200 Balance 20 3920 1000 1220 Meds/Results Medications: Active Medications Generic Name Dose Route Start Last Admin Trade Name Freq PRN Reason Stop Dose Admin Albuterol 2 puff 02/24/22 13:30 Albuterol Sulfate (*Sp) Aerosol 1 Puff INHALATION Q6HRT PRN Shortness Of Breath Amiodarone HCl 400 mg 02/23/22 08:00 02/27/22 08:41 Amiodarone Hcl 200 Mg Tablet PO 400 mg DAILY@0800 DAYANARA Administration Escitalopram Oxalate 10 mg 02/23/22 09:00 02/27/22 08:45 Escitalopram Oxalate 10 Mg Tablet PO 10 mg DAILY DAYANARA Administration Metoprolol Tartrate 25 mg 02/23/22 09:00 02/23/22 20:08 Metoprolol Tartrate 25 Mg Tablet PO 25 mg Q12HR DAYANARA Administration Midodrine 5 mg 02/23/22 09:00 02/27/22 17:59 Midodrine Hcl 2.5 Mg Tablet PO 5 mg BID DAYANARA Administration Radiology Results: ITS Impressions Chest X-Ray 02/22/22 20:42 IMPRESSION: Small bilateral pleural effusions versus chronic blunting from hyperinflation and scarring. Upper GI and Small Bowel X-Ray 02/25/22 21:40 IMPRESSION: Delayed small bowel transit, without evidence of small bowel obstruction Labs Labs: Laboratory Results - last 24 hr 02/27/22 02/27/22 05:42 05:42 WBC 11.7 H RBC 3.12 L Hgb 8.2 L Hct 28.1 L MCV 90.1 MCH 26.3 MCHC 29.2 L RDW 19.4 H Plt Count 271 MPV 9.4 Sodium 135 L Potassium 3.9 Chloride 105 Carbon Dioxide 27 Anion Gap 3 L BUN 21 H Creatinine 1.00 Estim Creat Clear Calc 33 Estimated GFR 53 L Glucose 104 Calcium 8.2 L
[2022-02-28] VITALS (10 sets, daily range): BP systolic 67–108; BP diastolic 48–69; PULSE 72–128; RESP 18–20; TEMP 36.2–37.2; O2SAT 84–100
[2022-02-28 06:12] LABS: Hematocrit 25.5 % (37.0-47.0); Hemoglobin 7.5 g/dL (12.0-15.0); Mean Corpuscular HGB Conc 29.4 g/dl (32-36); Mean Corpuscular Hemoglobin 27.1 pg (26-34); Mean Corpuscular Volume 92.1 fl (80-100); Mean Platelet Volume 9.7 fl (7.4-10.4); Platelet Count Result 212 k/mm3 (150-375); Red Blood Count 2.77 M/mm3 (4.2-5.4); Red Cell Distribution Width 19.3 % (11.5-14.5); White Blood Count 8.7 K/mm3 (4.5-10.0)
[2022-02-28 06:22] LABS: Anion Gap 0 mmol/L (8-16); Blood Urea Nitrogen 17 mg/dL (7-17); Calcium 7.6 mg/dL (8.4-10.2); Carbon Dioxide 29 mmol/L (22-30); Chloride 106 mmol/L (98-107); Estimated CRCL calculation 30 ml/min; Estimated Glomerular Filt Rate 47; Glucose 112 mg/dL (65-110); Potassium 3.6 mmol/L (3.4-5.0); Sodium 135 mmol/L (137-145)
[2022-02-28] MEDS: AMIODARONE HCL 200 MG TABLET 400 MG PO (09:24)
[2022-02-28] MEDS: MIDODRINE HCL 2.5 MG TABLET 5 MG PO ×3 (09:24→17:52)
[2022-02-28] MEDS: ESCITALOPRAM OXALATE 10 MG TABLET PO (09:25)
[2022-02-28 10:16] LABS: Folic Acid 10.1 ng/mL (2.76->20)
--- NOTE | 2022-02-28 12:05 | WPDGIPROGNO ---
Progress Note: A&P Assessment and Plan (1) Anemia: Qualifiers: Anemia type: iron deficiency Iron deficiency anemia type: chronic blood loss Qualified Code(s): D50.0 - Iron deficiency anemia secondary to blood loss (chronic) Code(s): D64.9 - Anemia, unspecified Status: Acute Assessment and Plan: profound anemia at admission with occult blood in stool. Most suspicious for GI blood loss. Likely related to anticoagulation use. GI series now completed including small-bowel follow-through with no significant risk factors for continued bleeding. I would advise holding anticoagulation if at all possible. Monitor hemoglobin after discharge. Resume other medications in resume diet and activity. okay with discharge from GI service when other services agree. 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 Would hold anticoagulation at all possible. Subjective Date/time seen: 02/28/22 12:05 Patient alert, at baseline. No signs of bleeding. Denies abdominal pain. Tolerating diet. Review of Systems Review of Systems: All systems reviewed & are unremarkable except as noted in HPI and below Exam Narrative: On physical exam patient is alert. She is anicteric. Vital signs stable. HEENT exam reveals no icterus. Lungs are clear. Heart without murmur. Abdomen bowel sounds present soft nontender with no organomegaly Objective Data Vital Signs Vital Signs: Vital Signs - 24 hr 02/27/22 14:00 02/27/22 19:55 02/27/22 19:57 Temperature 97.9 F Pulse Rate 86 Respiratory Rate 14 Blood Pressure 92/55 L 108/65 101/65 Pulse Oximetry 97 02/27/22 20:00 02/27/22 22:00 02/28/22 06:00 Temperature 99.3 F 97.7 F Pulse Rate 86 86 72 Respiratory Rate 14 18 18 Blood Pressure 75/49 L 103/52 L 108/63 Pulse Oximetry 92 98 95 02/28/22 08:00 02/28/22 09:24 Temperature Pulse Rate 72 72 Respiratory Rate 18 Blood Pressure Pulse Oximetry 95 Intake/Output Intake/Output: Intake & Output 02/25/22 02/26/22 02/27/2202/28/22 23:59 23:59 23:59 23:59 Intake Total 5120 1000 1220 200 Output Total 1200 Balance 3920 1000 1220 200 Meds/Results Medications: Active Medications Generic Name Dose Route Start Last Admin Trade Name Freq PRN Reason Stop Dose Admin Albuterol 2 puff 02/24/22 13:30 Albuterol Sulfate (*Sp) Aerosol 1 Puff INHALATION Q6HRT PRN Shortness Of Breath Amiodarone HCl 400 mg 02/23/22 08:00 02/28/22 09:24 Amiodarone Hcl 200 Mg Tablet PO 400 mg DAILY@0800 DAYANARA Administration Escitalopram Oxalate 10 mg 02/23/22 09:00 02/28/22 09:25 Escitalopram Oxalate 10 Mg Tablet PO 10 mg DAILY DAYANARA Administration Metoprolol Tartrate 25 mg 02/23/22 09:00 02/23/22 20:08 Metoprolol Tartrate 25 Mg Tablet PO 25 mg Q12HR DAYANARA Administration Midodrine 5 mg 02/28/22 09:00 02/28/22 09:24 Midodrine Hcl 2.5 Mg Tablet PO 5 mg TID DAYANARA Administration Radiology Results: ITS Impressions Upper GI and Small Bowel X-Ray 02/25/22 21:40 IMPRESSION: Delayed small bowel transit, without evidence of small bowel obstruction Chest X-Ray 02/28/22 11:32 IMPRESSION: 1. Emphysema with chronic pleural parenchymal scarring. 2. Small bilateral pleural effusions with associated basilar atelectasis and/or pneumonia. Labs Labs: Laboratory Results - last 24 hr 02/28/22 02/28/22 02/28/22 05:51 05:51 05:51 WBC RBC Hgb Hct MCV MCH MCHC RDW Plt Count MPV Sodium Potassium Chloride Carbon Dioxide Anion Gap BUN Creatinine Estim Creat Clear Calc Estimated GFR Glucose Calcium Vitamin B12 899.0
--- NOTE | 2022-02-28 15:23 | P.PNIM_ITS ---
Progress Note: A&P Assessment and Plan (1) Anemia: Qualifiers: Anemia type: iron deficiency Iron deficiency anemia type: chronic blood loss Qualified Code(s): D50.0 - Iron deficiency anemia secondary to blood loss (chronic) Code(s): D64.9 - Anemia, unspecified Status: Acute Assessment and Plan: Hemoglobin was 4.0 on presentation * She was transfused 3 units on 02/23/22 * Hemoglobin stabilized following transfusion, ranging from about 8-9 * Stool occult blood test was positive * Xarelto will be discontinued * Appreciate gastroenterology consultation * Underwent EGD 02/25 which did not show any evidence for bleeding. Colonoscopy showed few internal hemorrhoids also not felt to be the cause of bleeding * Small-bowel follow-through performed to evaluate for possible small bowel bleeding source. This revealed delayed small bowel transit. Appreciate further Gastroenterology recommendations regarding this. * Iron panel reviewed with adequate iron stores. B12 and folate within normal limits * Continue Protonix IV (2) CHF (congestive heart failure): Qualifiers: Heart failure chronicity: acute on chronic Heart failure type: unspecified Qualified Code(s): I50.9 - Heart failure, unspecified Code(s): I50.9 - Heart failure, unspecified Status: Acute Assessment and Plan: Presented with complaints of shortness of breath. BNP 1999. CXR with small bilateral pleural effusions * Patient appears euvolemic on exam * Echocardiogram from November 2021 shows normal EF 60-65% with abnormal diastolic function * Monitor intake and output and weigh daily. Heart healthy diet * She has intermittently required oxygen. She was hypoxic yesterday down to 88%. She has been maintaining O2 sats at 100% on 2 L, therefore this should be weaned. Goal O2 sats 92% or above (3) Chronic anticoagulation: Code(s): Z79.01 - [facility] (current) use of anticoagulants Status: Acute Assessment and Plan: Patient on Xarelto due to atrial fibrillation * Xarelto on hold in light of anemia * Following discussion with family, will stop Xareltoy. Discussed risks vs benefits of anticoagulation. Patient and family aware of stroke risk.At this time they are more concerned regarding bleed risk and would like to continue to stop Xarelto, especially given her significant fall risk (4) Orthostatic hypotension: Code(s): I95.1 - Orthostatic hypotension Status: Acute Assessment and Plan: Chronic issue. Patient is orthostatic with a 33 point drop in systolic BP from supine to standing, BP declined to 75/49 * Increase midodrine to 5 mg t.i.d.. Continue with up titration as needed * Encourage adequate fluid intake * Jeffrey garcia * Monitor orthostatics q shift * Etiology of her orthostasis is unclear. TSH and cortisol is within normal limits. Does not appear to be in any medications that would contribute (5) Fall: Code(s): W19.XXXA - Unspecified fall, initial encounter Status: Acute Assessment and Plan: Unwitnessed fall on 02/27/2022 in the bathroom. Patient reports falling onto her buttocks, denies any in her head * Patient and family declined head CT * Fall precautions implemented * Further discussion with family reveals that patient has had frequent falls at home. They still would like the patient to return home on discharge but now or agreeable to home health. * Continue PT/OT (6) COPD (chronic obstructive pulmonary disease): Qualifiers: COPD type: emphysema Emphysema type:
--- NOTE | 2022-02-28 15:23 | PM.IMPN ---
Progress Note: A&P Assessment and Plan (1) Anemia: Qualifiers: Anemia type: iron deficiency Iron deficiency anemia type: chronic blood loss Qualified Code(s): D50.0 - Iron deficiency anemia secondary to blood loss (chronic) Code(s): D64.9 - Anemia, unspecified Status: Acute Assessment and Plan: Hemoglobin was 4.0 on presentation She was transfused 3 units on 02/23/22 Hemoglobin stabilized following transfusion, ranging from about 8-9 Stool occult blood test was positive Xarelto will be discontinued Appreciate gastroenterology consultation Underwent EGD 02/25 which did not show any evidence for bleeding. Colonoscopy showed few internal hemorrhoids also not felt to be the cause of bleeding Small-bowel follow-through performed to evaluate for possible small bowel bleeding source. This revealed delayed small bowel transit. Appreciate further Gastroenterology recommendations regarding this. Iron panel reviewed with adequate iron stores. B12 and folate within normal limits Continue Protonix IV (2) CHF (congestive heart failure): Qualifiers: Heart failure chronicity: acute on chronic Heart failure type: unspecified Qualified Code(s): I50.9 - Heart failure, unspecified Code(s): I50.9 - Heart failure, unspecified Status: Acute Assessment and Plan: Presented with complaints of shortness of breath. BNP 1999. CXR with small bilateral pleural effusions Patient appears euvolemic on exam Echocardiogram from November 2021 shows normal EF 60-65% with abnormal diastolic function Monitor intake and output and weigh daily. Heart healthy diet She has intermittently required oxygen. She was hypoxic yesterday down to 88%. She has been maintaining O2 sats at 100% on 2 L, therefore this should be weaned. Goal O2 sats 92% or above (3) Chronic anticoagulation: Code(s): Z79.01 - [facility] (current) use of anticoagulants Status: Acute Assessment and Plan: Patient on Xarelto due to atrial fibrillation Xarelto on hold in light of anemia Following discussion with family, will stop Xareltoy. Discussed risks vs benefits of anticoagulation. Patient and family aware of stroke risk.At this time they are more concerned regarding bleed risk and would like to continue to stop Xarelto, especially given her significant fall risk (4) Orthostatic hypotension: Code(s): I95.1 - Orthostatic hypotension Status: Acute Assessment and Plan: Chronic issue. Patient is orthostatic with a 33 point drop in systolic BP from supine to standing, BP declined to 75/49 Increase midodrine to 5 mg t.i.d.. Continue with up titration as needed Encourage adequate fluid intake Jeffrey hose Monitor orthostatics q shift Etiology of her orthostasis is unclear. TSH and cortisol is within normal limits. Does not appear to be in any medications that would contribute (5) Fall: Code(s): W19.XXXA - Unspecified fall, initial encounter Status: Acute Assessment and Plan: Unwitnessed fall on 02/27/2022 in the bathroom. Patient reports falling onto her buttocks, denies any in her head Patient and family declined head CT Fall precautions implemented Further discussion with family reveals that patient has had frequent falls at home. They still would like the patient to return home on discharge but now or agreeable to home health. Continue PT/OT (6) COPD (chronic obstructive pulmonary disease): Qualifiers: COPD type: emphysema Emphysema type: unspecified Qualified Code(s): J43.9 - Emphysema, unspecified Code(s): J44.9 - Chronic obstructive pulmonary disease, unspecified Status: Acute Assessment and Plan: Not in acute exacerbation Albuterol as needed (7) Atrial fibrillation: Code(s): I48.91 - Unspecified atrial fibrillation Status: Acute Assessment and Plan: Rate is controlled Continue am
[2022-03-01] VITALS (11 sets, daily range): BP systolic 82–103; BP diastolic 51–63; PULSE 85–115; RESP 17–20; TEMP 36.8–37; O2SAT 90–98
[2022-03-01 07:06] LABS: Anion Gap 2 mmol/L (8-16); Blood Urea Nitrogen 20 mg/dL (7-17); Calcium 7.8 mg/dL (8.4-10.2); Carbon Dioxide 28 mmol/L (22-30); Chloride 101 mmol/L (98-107); Estimated CRCL calculation 41 ml/min; Estimated Glomerular Filt Rate > 60; Glucose 131 mg/dL (65-110); Potassium 4.6 mmol/L (3.4-5.0); Sodium 131 mmol/L (137-145)
[2022-03-01 08:05] LABS: Hematocrit 29.1 % (37.0-47.0); Hemoglobin 8.9 g/dL (12.0-15.0); Mean Corpuscular HGB Conc 30.6 g/dl (32-36); Mean Corpuscular Volume 88.2 fl (80-100); Mean Platelet Volume 9.6 fl (7.4-10.4); Platelet Count Result 231 k/mm3 (150-375); Red Cell Distribution Width 19.6 % (11.5-14.5); White Blood Count 20.9 K/mm3 (4.5-10.0)
[2022-03-01] MEDS: AMIODARONE HCL 200 MG TABLET 400 MG PO (08:07)
[2022-03-01] MEDS: ESCITALOPRAM OXALATE 10 MG TABLET PO (08:08)
[2022-03-01] MEDS: MIDODRINE HCL 10 MG TABLET PO ×3 (08:08→17:02)
--- NOTE | 2022-03-01 15:12 | PC.NURSE ---
Informed [facility] pt provider that wbc's increased from 8.7 to 20.9 today.
[2022-03-02] VITALS (10 sets, daily range): BP systolic 86–101; BP diastolic 44–60; PULSE 85–103; RESP 16–20; TEMP 36.2–36.6; O2SAT 90–97
[2022-03-02 05:46] LABS: Basophils Absolute Auto 0.1 K/mm3 (0.0-0.1); Basophils Percent Auto 0.3 % (0.2-1.2); Eosinophils Percent Auto 0.1 % (0-4.4); Hematocrit 27.4 % (37.0-47.0); Hemoglobin 8.2 g/dL (12.0-15.0); Immature Granulocyte Absolute 0.28 K/mm3 (0.00-0.031); Immature Granulocyte Percent A 1.5 % (0-0.5); Lymphocytes Absolute Auto 0.91 K/mm3 (0.9-3.2); Mean Corpuscular HGB Conc 29.9 g/dl (32-36); Mean Corpuscular Hemoglobin 26.5 pg (26-34); Mean Corpuscular Volume 88.7 fl (80-100); Mean Platelet Volume 9.9 fl (7.4-10.4); Monocytes Absolute Auto 1.9 K/mm3 (0.1-0.6); Monocytes Percent Auto 10.4 % (2.6-8.5); Neutrophils Percent Auto 82.7 % (45.5-73.1); Nucleated Red Blood Cells Absolute Auto 0.1 K/mm3 (0.0-0.012); Nucleated Red Blood Cells Perc 0.3 % (0.0-0.2); Platelet Count Result 230 k/mm3 (150-375); Red Blood Count 3.09 M/mm3 (4.2-5.4); White Blood Count 18.2 K/mm3 (4.5-10.0)
[2022-03-02 05:55] LABS: Anion Gap 3 mmol/L (8-16); Blood Urea Nitrogen 18 mg/dL (7-17); Calcium 7.7 mg/dL (8.4-10.2); Carbon Dioxide 26 mmol/L (22-30); Chloride 101 mmol/L (98-107); Estimated CRCL calculation 43 ml/min; Estimated Glomerular Filt Rate > 60; Glucose 103 mg/dL (65-110); Potassium 3.4 mmol/L (3.4-5.0); Sodium 130 mmol/L (137-145)
[2022-03-02 06:54] LABS: Platelet Estimate Adequate (Adequate)
[2022-03-02 06:55] LABS: Anisocytosis 2+ (NORMAL); Atypical Lymphocytes Present; Hypochromasia 2+ (NORMAL); Poikilocytosis 1+ (NORMAL); Target Cells 1+ (NORMAL)
[2022-03-02] MEDS: MIDODRINE HCL 10 MG TABLET PO ×3 (08:06→16:17)
[2022-03-02] MEDS: ESCITALOPRAM OXALATE 10 MG TABLET PO (08:06)
[2022-03-02] MEDS: AMIODARONE HCL 200 MG TABLET 400 MG PO (08:06)
--- NOTE | 2022-03-02 09:35 | PCPTNOTE ---
The patient treatment was not able to be completed on 03/02/22 due to patient being out of room for CT per nursing staff. Will plan to continue treatment per plan of care.
[2022-03-02] MEDS: metroNIDAZOLE 500 MG/ISO 100ML 500 MG/100 ML BAG 100 MG IVPB ×2 (09:49→16:17)
[2022-03-02 10:02] LABS: CRP 17.8 mg/dL (<1.0)
--- NOTE | 2022-03-02 11:54 | P.PNIM_ITS ---
Progress Note: A&P Assessment and Plan (1) Anemia: Qualifiers: Anemia type: iron deficiency Iron deficiency anemia type: chronic blood loss Qualified Code(s): D50.0 - Iron deficiency anemia secondary to blood loss (chronic) Code(s): D64.9 - Anemia, unspecified Status: Acute Assessment and Plan: Hemoglobin was 4.0 on presentation * She was transfused 3 units on 02/23/22 * Hemoglobin stabilized following transfusion, ranging from about 8-9 * Stool occult blood test was positive * Xarelto will be discontinued * Appreciate gastroenterology consultation * Underwent EGD 02/25 which did not show any evidence for bleeding. Colonoscopy showed few internal hemorrhoids also not felt to be the cause of bleeding * Small-bowel follow-through performed to evaluate for possible small bowel bleeding source. This revealed delayed small bowel transit. Appreciate further Gastroenterology recommendations regarding this. * Iron panel reviewed with adequate iron stores. B12 and folate within normal limits * Continue Protonix IV (2) CHF (congestive heart failure): Qualifiers: Heart failure chronicity: acute on chronic Heart failure type: unspecified Qualified Code(s): I50.9 - Heart failure, unspecified Code(s): I50.9 - Heart failure, unspecified Status: Acute Assessment and Plan: Presented with complaints of shortness of breath. BNP 1999. CXR with small bilateral pleural effusions * Patient appears euvolemic on exam * Echocardiogram from November 2021 shows normal EF 60-65% with abnormal diastolic function * Monitor intake and output and weigh daily. Heart healthy diet * She has intermittently required oxygen. Goal O2 sats 92% or above. She reportedly using oxygen intermittently at home up to 2 L per her daughter. 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 Discussed risks vs benefits of anticoagulation. Patient and family aware of stroke risk.At this time they are more concerned regarding bleed risk and would liketo stop Xarelto, especially given her significant fall risk (4) Orthostatic hypotension: Code(s): I95.1 - Orthostatic hypotension Status: Acute Assessment and Plan: Chronic issue. Patient is orthostatic with steep decline in BP upon standing, although she is relatively asymptomatic * No improvement with increased dose of midodrine to 5 mg TID. BP declined to 67/48 on standing * Increase to 10 mg TID. Monitor orthostatics and BP trends * Consider addition of Florinef if no improvement * Encourage adequate fluid intake * Jeffrey hose * Monitor orthostatics q shift * Etiology of her orthostasis is unclear. TSH and cortisol is within normal limits. Does not appear to be in any medications that would contribute (5) Fall: Code(s): W19.XXXA - Unspecified fall, initial encounter Status: Acute Assessment and Plan: Unwitnessed fall on 02/27/2022 in the bathroom. Patient reports falling onto her buttocks, denies any in her head * Patient and family declined head CT * Fall precautions implemented * Further discussion with family reveals that patient has had frequent falls at home. They still would like the patient to return home on discharge but now or agreeable to home health. * Continue PT/OT (6) COPD (chronic obstructive pulmonary di
--- NOTE | 2022-03-02 11:54 | PM.IMPN ---
Progress Note: A&P Assessment and Plan (1) Anemia: Qualifiers: Anemia type: iron deficiency Iron deficiency anemia type: chronic blood loss Qualified Code(s): D50.0 - Iron deficiency anemia secondary to blood loss (chronic) Code(s): D64.9 - Anemia, unspecified Status: Acute Assessment and Plan: Hemoglobin was 4.0 on presentation She was transfused 3 units on 02/23/22 Hemoglobin stabilized following transfusion, ranging from about 8-9 Stool occult blood test was positive Xarelto will be discontinued Appreciate gastroenterology consultation Underwent EGD 02/25 which did not show any evidence for bleeding. Colonoscopy showed few internal hemorrhoids also not felt to be the cause of bleeding Small-bowel follow-through performed to evaluate for possible small bowel bleeding source. This revealed delayed small bowel transit. Appreciate further Gastroenterology recommendations regarding this. Iron panel reviewed with adequate iron stores. B12 and folate within normal limits Continue Protonix IV (2) CHF (congestive heart failure): Qualifiers: Heart failure chronicity: acute on chronic Heart failure type: unspecified Qualified Code(s): I50.9 - Heart failure, unspecified Code(s): I50.9 - Heart failure, unspecified Status: Acute Assessment and Plan: Presented with complaints of shortness of breath. BNP 1999. CXR with small bilateral pleural effusions Patient appears euvolemic on exam Echocardiogram from November 2021 shows normal EF 60-65% with abnormal diastolic function Monitor intake and output and weigh daily. Heart healthy diet She has intermittently required oxygen. Goal O2 sats 92% or above. She reportedly using oxygen intermittently at home up to 2 L per her daughter. 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 Discussed risks vs benefits of anticoagulation. Patient and family aware of stroke risk.At this time they are more concerned regarding bleed risk and would liketo stop Xarelto, especially given her significant fall risk (4) Orthostatic hypotension: Code(s): I95.1 - Orthostatic hypotension Status: Acute Assessment and Plan: Chronic issue. Patient is orthostatic with steep decline in BP upon standing, although she is relatively asymptomatic No improvement with increased dose of midodrine to 5 mg TID. BP declined to 67/48 on standing Increase to 10 mg TID. Monitor orthostatics and BP trends Consider addition of Florinef if no improvement Encourage adequate fluid intake Jeffrey hose Monitor orthostatics q shift Etiology of her orthostasis is unclear. TSH and cortisol is within normal limits. Does not appear to be in any medications that would contribute (5) Fall: Code(s): W19.XXXA - Unspecified fall, initial encounter Status: Acute Assessment and Plan: Unwitnessed fall on 02/27/2022 in the bathroom. Patient reports falling onto her buttocks, denies any in her head Patient and family declined head CT Fall precautions implemented Further discussion with family reveals that patient has had frequent falls at home. They still would like the patient to return home on discharge but now or agreeable to home health. Continue PT/OT (6) COPD (chronic obstructive pulmonary disease): Qualifiers: COPD type: emphysema Emphysema type: unspecified Qualified Code(s): J43.9 - Emphysema, unspecified Code(s): J44.9 - Chronic obstructive pulmonary disease, unspecified Status: Acute Assessment and Plan: Not in acute exacerbation Albuterol as needed (7) Atrial fibrillation: Code(s): I48.91 - Unspecified atrial fibrillation Stat
--- NOTE | 2022-03-02 18:14 | PC.NURSE ---
Urine sample send for analysis.
[2022-03-03] VITALS (7 sets, daily range): BP systolic 92–104; BP diastolic 54–67; PULSE 79–102; RESP 18–20; TEMP 36.6–37.5; O2SAT 92–96
[2022-03-03] MEDS: metroNIDAZOLE 500 MG/ISO 100ML 500 MG/100 ML BAG 100 MG IVPB ×2 (00:05→08:34)
[2022-03-03 08:06] LABS: Basophils Percent Auto 0.3 % (0.2-1.2); Eosinophils Absolute Auto 0.1 K/mm3 (0-0.3); Eosinophils Percent Auto 0.6 % (0-4.4); Hematocrit 25.1 % (37.0-47.0); Hemoglobin 7.6 g/dL (12.0-15.0); Immature Granulocyte Absolute 0.05 K/mm3 (0.00-0.031); Immature Granulocyte Percent A 0.4 % (0-0.5); Lymphocytes Absolute Auto 0.96 K/mm3 (0.9-3.2); Lymphocytes Percent Auto 8.3 % (18.3-44.2); Mean Corpuscular HGB Conc 30.3 g/dl (32-36); Mean Corpuscular Hemoglobin 26.5 pg (26-34); Mean Corpuscular Volume 87.5 fl (80-100); Mean Platelet Volume 10.2 fl (7.4-10.4); Monocytes Absolute Auto 1.2 K/mm3 (0.1-0.6); Monocytes Percent Auto 9.9 % (2.6-8.5); Neutrophils Absolute Auto 9.4 K/mm3 (1.3-6.7); Neutrophils Percent Auto 80.5 % (45.5-73.1); Nucleated Red Blood Cells Perc 0.3 % (0.0-0.2); Platelet Count Result 217 k/mm3 (150-375); Red Blood Count 2.87 M/mm3 (4.2-5.4); Red Cell Distribution Width 19.6 % (11.5-14.5); White Blood Count 11.6 K/mm3 (4.5-10.0)
[2022-03-03 08:19] LABS: Alanine Aminotransferase 16 U/L (4-35); Albumin Level 2.3 g/dL (3.5-5.1); Alkaline Phosphatase 74 U/L (38-126); Anion Gap 3 mmol/L (8-16); Aspartate Amino Transferase 25 U/L (14-36); Bilirubin,Total 0.9 mg/dL (0.2-1.3); Blood Urea Nitrogen 18 mg/dL (7-17); Calcium 7.5 mg/dL (8.4-10.2); Carbon Dioxide 26 mmol/L (22-30); Chloride 104 mmol/L (98-107); Estimated CRCL calculation 42 ml/min; Estimated Glomerular Filt Rate > 60; Glucose 85 mg/dL (65-110); Potassium 3.2 mmol/L (3.4-5.0); Sodium 133 mmol/L (137-145)
[2022-03-03] MEDS: MIDODRINE HCL 10 MG TABLET PO ×3 (08:28→17:01)
[2022-03-03] MEDS: ESCITALOPRAM OXALATE 10 MG TABLET PO (08:28)
[2022-03-03] MEDS: AMIODARONE HCL 200 MG TABLET 400 MG PO (08:28)
[2022-03-03 09:32] LABS: Platelet Estimate Adequate (Adequate)
[2022-03-03 09:33] LABS: Burr Cells 1+ (NORMAL); Hypochromasia 2+ (NORMAL); Target Cells 1+ (NORMAL)
[2022-03-03 09:34] LABS: Polychromasia 1+ (NORMAL)
[2022-03-03] MEDS: POTASSIUM CHLORIDE 20 MEQ PACKET (FOR LIQUID) 40 MEQ PO (11:17)
--- NOTE | 2022-03-03 16:45 | PCOTNOTE ---
Attempted occupational therapy treatment at 11:45 AM, pt. refused stating that she was tired and did not fell it was necessary
[2022-03-03] MEDS: CEFDINIR 300 MG CAPSULE PO (20:22)
[2022-03-04] VITALS (15 sets, daily range): BP systolic 84–113; BP diastolic 55–70; PULSE 94–118; RESP 16–20; TEMP 35.9–36.8; O2SAT 85–96; BMI 22.5
[2022-03-04 06:55] LABS: Basophils Absolute Auto 0.1 K/mm3 (0.0-0.1); Basophils Percent Auto 0.7 % (0.2-1.2); Eosinophils Absolute Auto 0.1 K/mm3 (0-0.3); Eosinophils Percent Auto 0.9 % (0-4.4); Hematocrit 29.5 % (37.0-47.0); Immature Granulocyte Absolute 0.06 K/mm3 (0.00-0.031); Immature Granulocyte Percent A 0.5 % (0-0.5); Lymphocytes Absolute Auto 1.72 K/mm3 (0.9-3.2); Lymphocytes Percent Auto 15.5 % (18.3-44.2); Mean Corpuscular HGB Conc 30.5 g/dl (32-36); Mean Corpuscular Hemoglobin 26.1 pg (26-34); Mean Corpuscular Volume 85.5 fl (80-100); Mean Platelet Volume 9.4 fl (7.4-10.4); Monocytes Absolute Auto 1.2 K/mm3 (0.1-0.6); Monocytes Percent Auto 11.1 % (2.6-8.5); Neutrophils Absolute Auto 7.9 K/mm3 (1.3-6.7); Neutrophils Percent Auto 71.3 % (45.5-73.1); Nucleated Red Blood Cells Perc 0.3 % (0.0-0.2); Platelet Count Result 291 k/mm3 (150-375); Red Blood Count 3.45 M/mm3 (4.2-5.4); Red Cell Distribution Width 19.8 % (11.5-14.5); White Blood Count 11.1 K/mm3 (4.5-10.0)
[2022-03-04 07:06] LABS: Alanine Aminotransferase 19 U/L (4-35); Albumin Level 2.8 g/dL (3.5-5.1); Alkaline Phosphatase 85 U/L (38-126); Anion Gap 5 mmol/L (8-16); Aspartate Amino Transferase 40 U/L (14-36); Bilirubin,Total 1.3 mg/dL (0.2-1.3); Blood Urea Nitrogen 18 mg/dL (7-17); Calcium 7.6 mg/dL (8.4-10.2); Carbon Dioxide 23 mmol/L (22-30); Chloride 105 mmol/L (98-107); Estimated CRCL calculation 43 ml/min; Estimated Glomerular Filt Rate > 60; Glucose 93 mg/dL (65-110); Sodium 133 mmol/L (137-145)
--- NOTE | 2022-03-04 07:55 | ECG_ITS ---
Measurements Intervals [place] Rate: 94 P: [place]: 0 QRS: 31 QRSD: 88 T: 0 QT: 376 QTc: 472 Interpretive Statements ATRIAL FIBRILLATION LOW QRS VOLTAGE IN EXTREMITY LEADS [QRS DEFLECTION < 0.5 mV IN LIMB LEADS] NONSPECIFIC ST AND T-WAVE ABNORMALITY COMPARED TO ECG 02/22/2022 20:12:33 NO SIGNIFICANT CHANGES Electronically Signed On 03-04-2022 15:08:34 CDT by Toney Jorge M.D.
[2022-03-04] MEDS: MIDODRINE HCL 10 MG TABLET PO ×3 (08:18→16:35)
[2022-03-04] MEDS: AMIODARONE HCL 200 MG TABLET 400 MG PO (08:18)
[2022-03-04] MEDS: CEFDINIR 300 MG CAPSULE PO ×2 (08:18→20:08)
[2022-03-04] MEDS: ESCITALOPRAM OXALATE 10 MG TABLET PO (08:19)
[2022-03-04] MEDS: SODIUM CHLORIDE 0.9% IV 500 ML IV CONT (08:25)
[2022-03-04 08:34] LABS: Troponin I 0.019 ng/mL (0.000-0.034)
[2022-03-04] MEDS: BELLADONNA ALK/PHENOB ELIX 10 ML, MAG HYDROX/ALUMINUM HYD/SIMETH 30 ML, LIDOCAINE HCL 2... PO (09:11)
[2022-03-04 12:35] LABS: Troponin I < 0.012 ng/mL (0.000-0.034)
--- NOTE | 2022-03-04 13:35 | PCPTNOTE ---
The patient treatment was not able to be completed due to patient stating that she does not feel well today. Will plan to continue treatment per plan of care.
--- NOTE | 2022-03-04 13:49 | PM.IMPN ---
Progress Note: A&P Assessment and Plan (1) Anemia: Qualifiers: Anemia type: iron deficiency Iron deficiency anemia type: chronic blood loss Qualified Code(s): D50.0 - Iron deficiency anemia secondary to blood loss (chronic) Code(s): D64.9 - Anemia, unspecified Status: Acute Assessment and Plan: Hemoglobin was 4.0 on presentation She was transfused 3 units on 02/23/22 Hemoglobin stabilized following transfusion, ranging from about 8-9 Stool occult blood test was positive Xarelto will be discontinued Appreciate gastroenterology consultation Underwent EGD 02/25 which did not show any evidence for bleeding. Colonoscopy showed few internal hemorrhoids also not felt to be the cause of bleeding Small-bowel follow-through performed to evaluate for possible small bowel bleeding source. This revealed delayed small bowel transit. Appreciate further Gastroenterology recommendations regarding this. Iron panel reviewed with adequate iron stores. B12 and folate within normal limits Continue Protonix IV (2) CHF (congestive heart failure): Qualifiers: Heart failure chronicity: acute on chronic Heart failure type: unspecified Qualified Code(s): I50.9 - Heart failure, unspecified Code(s): I50.9 - Heart failure, unspecified Status: Acute Assessment and Plan: Presented with complaints of shortness of breath. BNP 1999. CXR with small bilateral pleural effusions Patient appears euvolemic on exam Echocardiogram from November 2021 shows normal EF 60-65% with abnormal diastolic function Monitor intake and output and weigh daily. Heart healthy diet She has intermittently required oxygen. Goal O2 sats 92% or above. She reportedly using oxygen intermittently at home up to 2 L per her daughter. 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 Discussed risks vs benefits of anticoagulation. Patient and family aware of stroke risk.At this time they are more concerned regarding bleed risk and would liketo stop Xarelto, especially given her significant fall risk (4) Orthostatic hypotension: Code(s): I95.1 - Orthostatic hypotension Status: Acute Assessment and Plan: Chronic issue. Patient is orthostatic with steep decline in BP upon standing, although she is relatively asymptomatic No improvement with increased dose of midodrine to 5 mg TID. BP declined to 67/48 on standing Increase to 10 mg TID. Monitor orthostatics and BP trends Consider addition of Florinef if no improvement Encourage adequate fluid intake Jeffrey hose Monitor orthostatics q shift Etiology of her orthostasis is unclear. TSH and cortisol is within normal limits. Does not appear to be in any medications that would contribute Patient developed hypotension this morning. Patient is already on midodrine 10 mg t.i.d. and her metoprolol is being held. She received 500 cc bolus. (5) Fall: Code(s): W19.XXXA - Unspecified fall, initial encounter Status: Acute Assessment and Plan: Unwitnessed fall on 02/27/2022 in the bathroom. Patient reports falling onto her buttocks, denies any in her head Patient and family declined head CT Fall precautions implemented Further discussion with family reveals that patient has had frequent falls at home. They still would like the patient to return home on discharge but now or agreeable to home health. Continue PT/OT (6) COPD (chronic obstructive pulmonary disease): Qualifiers: COPD type: emphysema Emphysema type: unspecified Qualified Code(s): J43.9 - Emphysema, unspecified Code(s): J44.9 - Chronic obstructive pulmonary disease, unspecified Status: Acute Assessment and Plan:
--- NOTE | 2022-03-04 13:49 | P.PNIM_ITS ---
Progress Note: A&P Assessment and Plan (1) Anemia: Qualifiers: Anemia type: iron deficiency Iron deficiency anemia type: chronic blood loss Qualified Code(s): D50.0 - Iron deficiency anemia secondary to blood loss (chronic) Code(s): D64.9 - Anemia, unspecified Status: Acute Assessment and Plan: Hemoglobin was 4.0 on presentation * She was transfused 3 units on 02/23/22 * Hemoglobin stabilized following transfusion, ranging from about 8-9 * Stool occult blood test was positive * Xarelto will be discontinued * Appreciate gastroenterology consultation * Underwent EGD 02/25 which did not show any evidence for bleeding. Colonoscopy showed few internal hemorrhoids also not felt to be the cause of bleeding * Small-bowel follow-through performed to evaluate for possible small bowel bleeding source. This revealed delayed small bowel transit. Appreciate further Gastroenterology recommendations regarding this. * Iron panel reviewed with adequate iron stores. B12 and folate within normal limits * Continue Protonix IV (2) CHF (congestive heart failure): Qualifiers: Heart failure chronicity: acute on chronic Heart failure type: unspecified Qualified Code(s): I50.9 - Heart failure, unspecified Code(s): I50.9 - Heart failure, unspecified Status: Acute Assessment and Plan: Presented with complaints of shortness of breath. BNP 1999. CXR with small bilateral pleural effusions * Patient appears euvolemic on exam * Echocardiogram from November 2021 shows normal EF 60-65% with abnormal diastolic function * Monitor intake and output and weigh daily. Heart healthy diet * She has intermittently required oxygen. Goal O2 sats 92% or above. She reportedly using oxygen intermittently at home up to 2 L per her daughter. (3) Chronic anticoagulation: Code(s): Z79.01 - custodial (current) use of anticoagulants Status: Acute Assessment and Plan: Patient on Xarelto due to atrial fibrillation * Xarelto on hold in light of anemia * Following discussion with family, will stop Xarelto. Discussed risks vs benefits of anticoagulation. Patient and family aware of stroke risk.At this time they are more concerned regarding bleed risk and would liketo stop Xarelto, especially given her significant fall risk (4) Orthostatic hypotension: Code(s): I95.1 - Orthostatic hypotension Status: Acute Assessment and Plan: Chronic issue. Patient is orthostatic with steep decline in BP upon standing, although she is relatively asymptomatic * No improvement with increased dose of midodrine to 5 mg TID. BP declined to 67/48 on standing * Increase to 10 mg TID. Monitor orthostatics and BP trends * Consider addition of Florinef if no improvement * Encourage adequate fluid intake * Jeffrey hose * Monitor orthostatics q shift * Etiology of her orthostasis is unclear. TSH and cortisol is within normal limits. Does not appear to be in any medications that would contribute Patient developed hypotension this morning. Patient is already on midodrine 10 mg t.i.d. and her metoprolol is being held. She received 500 cc bolus. (5) Fall: Code(s): W19.XXXA - Unspecified fall, initial encounter Status: Acute Assessment and Plan: Unwitnessed fall on 02/27/2022 in the bathroom. Patient reports falling onto her buttocks, denies any in her head * Patient and family declined head CT * Fall precautions implemented * Further discussion with family reveals that patient has had frequent falls at home. They still would like the patie
--- NOTE | 2022-03-04 14:22 | HOMEO2EVAL ---
Evaluation was performed at [facility] Home Oxygen Evaluation RC: Home Oxygen (O2) Evaluation Start: 03/04/22 13:50 Freq: ONCE Status: Active Protocol: RPE Activity Type Activity Date Activity User E-Sign Co-Sign Detail Recorded Client Recorded Date Recorded By Document 03/04/22 13:50 [email or web address] [email or web address] 03/04/22 14:22 DJO Document 03/04/22 13:55 [email or web address] [email or web address] 03/04/22 14:22 DJO Document 03/04/22 14:00 [email or web address] [email or web address] 03/04/22 14:22 DJO Document 03/04/22 14:05 [email or web address] [email or web address] 03/04/22 14:22 DJO Document 03/04/22 14:15 [email or web address] [email or web address] 03/04/22 14:22 DJO 03/04/22 03/04/22 03/04/22 13:50 13:55 14:00 Home O2 Evaluation Test Phase Resting Resting Resting Oxygen Delivery Room Air Nasal Cannula Nasal Cannula Oxygen Flow Rate (L/min) 1 2 Pulse Oximetry (90-100 %) 85 L 87 L 91 Pulse Rate (60-100 beats/min) 102 H 101 H 103 H Activity Tolerance Treatment Charges O2 Evaluation - Inpatient 03/04/22 03/04/22 14:05 14:15 Home O2 Evaluation Test Phase Exercise Resting Oxygen Delivery Nasal Cannula Nasal Cannula Oxygen Flow Rate (L/min) 2 2 Pulse Oximetry (90-100 %) 92 91 Pulse Rate (60-100 beats/min) 118 H 100 Activity Tolerance Fair Treatment Charges
--- NOTE | 2022-03-04 15:02 | PCRCNOTE ---
HOME O2 SET UP COMPLETE, 2 LITERS AT REST AND WITH ACTIVITY. SET UP WITH [employer], PHONE NUMBER [phone]. TANK HAS BEEN DELIVERED TO PT'S ROOM FOR DISCHARGE.
[2022-03-05] VITALS (9 sets, daily range): BP systolic 78–120; BP diastolic 59–70; PULSE 61–112; RESP 16–18; TEMP 36.6–37.1; O2SAT 93–97
[2022-03-05] MEDS: ALBUTEROL SULFATE (*SP) AEROSOL 1 PUFF 2 PUFF INHALATION (01:59)
--- NOTE | 2022-03-05 02:23 | PC.NURSE ---
0150 Pt coughing continuously, Spo2 84 while on 2L/NC. Oxygen increased to 4L/NC, Sp02 increased to 93. Place call to respiratory therapist for albuterol treatment as ordered. Will continue to monitor.
[2022-03-05 06:45] LABS: Basophils Absolute Auto 0.1 K/mm3 (0.0-0.1); Basophils Percent Auto 0.6 % (0.2-1.2); Eosinophils Percent Auto 0.3 % (0-4.4); Hematocrit 25.5 % (37.0-47.0); Hemoglobin 7.5 g/dL (12.0-15.0); Immature Granulocyte Absolute 0.06 K/mm3 (0.00-0.031); Immature Granulocyte Percent A 0.8 % (0-0.5); Lymphocytes Absolute Auto 1.01 K/mm3 (0.9-3.2); Lymphocytes Percent Auto 13.1 % (18.3-44.2); Mean Corpuscular HGB Conc 29.4 g/dl (32-36); Mean Corpuscular Hemoglobin 25.3 pg (26-34); Mean Corpuscular Volume 86.1 fl (80-100); Mean Platelet Volume 9.8 fl (7.4-10.4); Monocytes Absolute Auto 0.9 K/mm3 (0.1-0.6); Monocytes Percent Auto 12.2 % (2.6-8.5); Neutrophils Absolute Auto 5.6 K/mm3 (1.3-6.7); Platelet Count Result 256 k/mm3 (150-375); Red Blood Count 2.96 M/mm3 (4.2-5.4); Red Cell Distribution Width 20.1 % (11.5-14.5); White Blood Count 7.7 K/mm3 (4.5-10.0)
[2022-03-05 06:56] LABS: Alanine Aminotransferase 15 U/L (4-35); Albumin Level 2.4 g/dL (3.5-5.1); Alkaline Phosphatase 88 U/L (38-126); Anion Gap 4 mmol/L (8-16); Aspartate Amino Transferase 25 U/L (14-36); Bilirubin,Total 0.9 mg/dL (0.2-1.3); Blood Urea Nitrogen 15 mg/dL (7-17); Calcium 7.4 mg/dL (8.4-10.2); Carbon Dioxide 25 mmol/L (22-30); Chloride 105 mmol/L (98-107); Estimated CRCL calculation 41 ml/min; Estimated Glomerular Filt Rate > 60; Glucose 106 mg/dL (65-110); Potassium 3.3 mmol/L (3.4-5.0); Sodium 134 mmol/L (137-145)
[2022-03-05 07:26] LABS: Anisocytosis 1+ (NORMAL); Hypochromasia 2+ (NORMAL); Platelet Estimate Adequate (Adequate); Target Cells 1+ (NORMAL); Tear Drop Cells 1+ (NORMAL)
[2022-03-05] MEDS: CEFDINIR 300 MG CAPSULE PO (08:33)
[2022-03-05] MEDS: MIDODRINE HCL 10 MG TABLET PO ×2 (08:33→12:26)
[2022-03-05] MEDS: ESCITALOPRAM OXALATE 10 MG TABLET PO (08:34)
[2022-03-05] MEDS: AMIODARONE HCL 200 MG TABLET 400 MG PO (08:34)
[2022-03-05] MEDS: POTASSIUM CHLORIDE 20 MEQ TABLET 40 MEQ PO (08:38)
[2022-03-05 12:41] LABS: Hematocrit 27.8 % (37.0-47.0); Hemoglobin 8.1 g/dL (12.0-15.0)
--- NOTE | 2022-03-05 13:41 | P.DS_ITS ---
DS: Admitting Diagnosis Discharge Date 03/05/22 Admitting Diagnosis acute GI bleed generalized weakness DS: Discharge Diagnosis Discharge Diagnosis (1) Anemia: Qualifiers: Anemia type: iron deficiency Iron deficiency anemia type: chronic blood loss Qualified Code(s): D50.0 - Iron deficiency anemia secondary to blood loss (chronic) Code(s): D64.9 - Anemia, unspecified Status: Acute Assessment and Plan: Hemoglobin was 4.0 on presentation * She was transfused 3 units on 02/23/22 * Hemoglobin stabilized following transfusion, ranging from about 8-9 * Stool occult blood test was positive * Xarelto will be discontinued * Appreciate gastroenterology consultation * Underwent EGD 02/25 which did not show any evidence for bleeding. Colonoscopy showed few internal hemorrhoids also not felt to be the cause of bleeding * Small-bowel follow-through performed to evaluate for possible small bowel bleeding source. This revealed delayed small bowel transit. Appreciate further Gastroenterology recommendations regarding this. * Iron panel reviewed with adequate iron stores. B12 and folate within normal limits * Continue Protonix IV (2) CHF (congestive heart failure): Qualifiers: Heart failure chronicity: acute on chronic Heart failure type: unspecified Qualified Code(s): I50.9 - Heart failure, unspecified Code(s): I50.9 - Heart failure, unspecified Status: Acute Assessment and Plan: Presented with complaints of shortness of breath. BNP 1999. CXR with small bilateral pleural effusions * Patient appears euvolemic on exam * Echocardiogram from November 2021 shows normal EF 60-65% with abnormal diastolic function * Monitor intake and output and weigh daily. Heart healthy diet * She has intermittently required oxygen. Goal O2 sats 92% or above. She reportedly using oxygen intermittently at home up to 2 L per her daughter. (3) Chronic anticoagulation: Code(s): Z79.01 - care home (current) use of anticoagulants Status: Acute Assessment and Plan: Patient on Xarelto due to atrial fibrillation * Xarelto on hold in light of anemia * Following discussion with family, will stop Xarelto. Discussed risks vs benefits of anticoagulation. Patient and family aware of stroke risk.At this time they are more concerned regarding bleed risk and would liketo stop Xarelto, especially given her significant fall risk (4) Orthostatic hypotension: Code(s): I95.1 - Orthostatic hypotension Status: Acute Assessment and Plan: Chronic issue. Patient is orthostatic with steep decline in BP upon standing, although she is relatively asymptomatic * No improvement with increased dose of midodrine to 5 mg TID. BP declined to 67/48 on standing * Increase to 10 mg TID. Monitor orthostatics and BP trends * Consider addition of Florinef if no improvement * Encourage adequate fluid intake * Jeffrey hose * Monitor orthostatics q shift * Etiology of her orthostasis is unclear. TSH and cortisol is within normal limits. Does not appear to be in any medications that would contribute Patient developed hypotension this morning. Patient is already on midodrine 10 mg t.i.d. and her metoprolol is being held. She received 500 cc bolus. (5) Fall: Code(s): W19.XXXA - Unspecified fall, initial encounter Status: Acute Assessment and Plan: Unwitnessed fall on 02/27/2022 in the bathroom. Patient reports falling onto her buttocks, denies any in her head * Patient and family declined head CT * Fall precautio
--- NOTE | 2022-03-05 13:41 | PM.DS ---
DS: Admitting Diagnosis Discharge Date 03/05/22 Admitting Diagnosis acute GI bleed generalized weakness DS: Discharge Diagnosis Discharge Diagnosis (1) Anemia: Qualifiers: Anemia type: iron deficiency Iron deficiency anemia type: chronic blood loss Qualified Code(s): D50.0 - Iron deficiency anemia secondary to blood loss (chronic) Code(s): D64.9 - Anemia, unspecified Status: Acute Assessment and Plan: Hemoglobin was 4.0 on presentation She was transfused 3 units on 02/23/22 Hemoglobin stabilized following transfusion, ranging from about 8-9 Stool occult blood test was positive Xarelto will be discontinued Appreciate gastroenterology consultation Underwent EGD 02/25 which did not show any evidence for bleeding. Colonoscopy showed few internal hemorrhoids also not felt to be the cause of bleeding Small-bowel follow-through performed to evaluate for possible small bowel bleeding source. This revealed delayed small bowel transit. Appreciate further Gastroenterology recommendations regarding this. Iron panel reviewed with adequate iron stores. B12 and folate within normal limits Continue Protonix IV (2) CHF (congestive heart failure): Qualifiers: Heart failure chronicity: acute on chronic Heart failure type: unspecified Qualified Code(s): I50.9 - Heart failure, unspecified Code(s): I50.9 - Heart failure, unspecified Status: Acute Assessment and Plan: Presented with complaints of shortness of breath. BNP 1999. CXR with small bilateral pleural effusions Patient appears euvolemic on exam Echocardiogram from November 2021 shows normal EF 60-65% with abnormal diastolic function Monitor intake and output and weigh daily. Heart healthy diet She has intermittently required oxygen. Goal O2 sats 92% or above. She reportedly using oxygen intermittently at home up to 2 L per her daughter. (3) Chronic anticoagulation: Code(s): Z79.01 - retirement (current) use of anticoagulants Status: Acute Assessment and Plan: Patient on Xarelto due to atrial fibrillation Xarelto on hold in light of anemia Following discussion with family, will stop Xarelto. Discussed risks vs benefits of anticoagulation. Patient and family aware of stroke risk.At this time they are more concerned regarding bleed risk and would liketo stop Xarelto, especially given her significant fall risk (4) Orthostatic hypotension: Code(s): I95.1 - Orthostatic hypotension Status: Acute Assessment and Plan: Chronic issue. Patient is orthostatic with steep decline in BP upon standing, although she is relatively asymptomatic No improvement with increased dose of midodrine to 5 mg TID. BP declined to 67/48 on standing Increase to 10 mg TID. Monitor orthostatics and BP trends Consider addition of Florinef if no improvement Encourage adequate fluid intake Jeffrey hose Monitor orthostatics q shift Etiology of her orthostasis is unclear. TSH and cortisol is within normal limits. Does not appear to be in any medications that would contribute Patient developed hypotension this morning. Patient is already on midodrine 10 mg t.i.d. and her metoprolol is being held. She received 500 cc bolus. (5) Fall: Code(s): W19.XXXA - Unspecified fall, initial encounter Status: Acute Assessment and Plan: Unwitnessed fall on 02/27/2022 in the bathroom. Patient reports falling onto her buttocks, denies any in her head Patient and family declined head CT Fall precautions implemented Further discussion with family reveals that patient has had frequent falls at home. They still would like the patient to return home on discharge but now or agreeable to home health. Continue PT/OT (6) COPD (chronic obstructive pulmonary disease): Qualifiers: COPD type: emphysema Emphysema type: unspecified Qualified Code(s): J43.9 - Emphysema, unspecified C
== END 2022-03-05 15:45 | disposition home health service (06) | DRG 377 ==
LOC: ANHED 21:27 → ANH3MEDSUR 02-23 07:22
PROVIDERS: Family Medicine; Internal Medicine Gastroenterology; Nurse Practitioner; Physician Assistant; Admitting Provider Internal Medicine; Emergency Provider Emergency Medicine; PCP Family Medicine Adolescent Medicine; Visit Provider Nurse Practitioner Family
PROC: 0DJ08ZZ Inspection of Upper Intestinal Tract, Via Natural or Artificial Opening Endoscopic (ICD-10-PCS; CPT 43235; principal; 2022-02-25 13:00)
DX: K92.2 Gastrointestinal hemorrhage, unspecified (principal); Q39.4 Esophageal web; I50.33 Acute on chronic diastolic (congestive) heart failure; D68.32 Hemorrhagic disorder due to extrinsic circulating anticoagulants; D62 Acute posthemorrhagic anemia; E87.1 Hypo-osmolality and hyponatremia; I48.20 Chronic atrial fibrillation, unspecified; Z79.01 Long term (current) use of anticoagulants; T45.515A Adverse effect of anticoagulants, initial encounter; K64.8 Other hemorrhoids; K21.9 Gastro-esophageal reflux disease without esophagitis; I95.1 Orthostatic hypotension; W19.XXXA Unspecified fall, initial encounter; E87.6 Hypokalemia; R13.10 Dysphagia, unspecified; F03.90 Unspecified dementia, unspecified severity, without behavioral disturbance, psychotic disturbance, mood disturbance, and anxiety; D72.829 Elevated white blood cell count, unspecified; J43.9 Emphysema, unspecified; M17.11 Unilateral primary osteoarthritis, right knee; I48.91 Unspecified atrial fibrillation; Z90.49 Acquired absence of other specified parts of digestive tract; Z98.42 Cataract extraction status, left eye; Z98.41 Cataract extraction status, right eye; Z96.1 Presence of intraocular lens; Z99.81 Dependence on supplemental oxygen
CPT/HCPCS: 36415; 36430; 71045; 71046; 74176; 74250; 80048; 80053; 82274; 82533; 82607; 82746; 83540; 83550; 83735; 83880; 84100; 84443; 84484; 85014; 85018; 85025; 85027; 86140; 86850; 86900; 86901; 86920; 87040; 87086; 92610; 93005; 94618; 94640; 97110; 97116; 97161; 97165; 97530; 97535; 99285; A9270; G0378; J0696; J1100; J2370; J2405; J2704; J3480; J7040; J7050; J7120; P9016

== ENCOUNTER 2022-03-08 10:25 | Outpatient (NON) | payer MEDICARE, SELFPAY ==
[2022-03-08 10:56] LABS: Anion Gap 3 mmol/L (8-16); Blood Urea Nitrogen 12 mg/dL (7-17); Calcium 8.2 mg/dL (8.4-10.2); Carbon Dioxide 29 mmol/L (22-30); Chloride 106 mmol/L (98-107); Estimated Glomerular Filt Rate 59; Glucose 94 mg/dL (65-110); Potassium 4.3 mmol/L (3.4-5.0); Sodium 138 mmol/L (137-145)
[2022-03-08 10:58] LABS: Hematocrit 30.3 % (37.0-47.0); Hemoglobin 8.7 g/dL (12.0-15.0); Mean Corpuscular HGB Conc 28.7 g/dl (32-36); Mean Corpuscular Hemoglobin 25.6 pg (26-34); Mean Corpuscular Volume 89.1 fl (80-100); Mean Platelet Volume 9.7 fl (7.4-10.4); Platelet Count Result 326 k/mm3 (150-375); Red Cell Distribution Width 20.8 % (11.5-14.5); White Blood Count 6.8 K/mm3 (4.5-10.0)
== END 2022-03-08 10:26 | disposition home or self-care (01) ==
LOC: HOME HLTH 10:28
PROVIDERS: PCP Family Medicine Adolescent Medicine; Visit Provider Family Medicine Adolescent Medicine
DX: I50.9 Heart failure, unspecified (principal); I95.1 Orthostatic hypotension; D50.0 Iron deficiency anemia secondary to blood loss (chronic); D64.9 Anemia, unspecified
CPT/HCPCS: 80048; 85027

== ENCOUNTER 2022-03-15 01:45 | Emergency (ER) | payer OTHER, MEDICARE, SELFPAY ==
[2022-03-15] VITALS (7 sets, daily range): BP systolic 84–100; BP diastolic 57–67; PULSE 66–112; RESP 16–27; TEMP 36.6; O2SAT 92–100
--- NOTE | 2022-03-15 03:27 | PC.NURSE ---
Spoke on the phone with Leslee from [facility] about the pt's comfort medications and the family member's concern about billing issues with medications. Leslee has given me her phone number for continued communication. The plan is for Leslee to call [facility] in the morning to solve any billing issues and the family for the pt will have to picking table worker medications in the morning. After family picks up medicine from [facility] [place] will come to the house to provide education on medication administration. Family at bedside, will be updated.
--- NOTE | 2022-03-15 04:45 | PC.NURSE ---
Pt will be staying in the ED until the pharmacy opens in the morning and they can fill her medications. Lights dimmed and pt resting comfortably. Family at bedside. Will continue to monitor pulse ox
--- NOTE | 2022-03-15 05:02 | ED.SOB ---
HPI - SOB/Dyspnea General Chief Complaint: Shortness of Breath/Dyspnea <Jc Kumar MD - Last Filed: 03/15/22 06:22> Stated Complaint: sob x 30 min, resp distress <Jc Kumar MD - Last Filed: 03/15/22 06:22> Time Seen by Provider: 03/15/22 02:05 <Jc Kumar MD - Last Filed: 03/15/22 06:22> History of Present Illness HPI Narrative: Patient is an 87-year-old female who presents ER with shortness of breath. EMS arrived at her home and found her to be satting in the mid 70s. Patient been wearing 2 L of O2 at home. Patient responded to 15 L nonrebreather. Patient has dementia and CHF. Apparently patient was placed on hospice yesterday. Daughter reports that she had trouble getting the medication so she has no meds at home to help comfort her mother. She also was not taught how to use any of the medications. She is using [facility]. <Jc Kumar MD - Last Filed: 03/15/22 06:22> Related Data Home Medications: Home Medications Medication Instructions Recorded Confirmed metoprolol tartrate 25 mg tablet 12.5 mg PO BID 03/11/22 03/11/22 umeclidinium 62.5 mcg-vilanterol 1 inh INHALATION DAILY 03/11/22 03/11/22 25 mcg/actuation powdr for inhalation umeclidinium 62.5 mcg-vilanterol 1 inh INHALATION DAILY 03/11/22 03/11/22 25 mcg/actuation powdr for inhalation <Jc Kumar MD - Last Filed: 03/15/22 06:22> Allergies/Adverse Reactions: Allergies Allergy/AdvReac Type Severity Reaction Status Date / Time Penicillins Allergy Unknown Unknown Verified 03/11/22 10:43 ciprofloxacin [From Cipro] Allergy Hives Verified 03/11/22 10:43 Sulfa (Sulfonamide Allergy Hives Verified 03/11/22 10:43 Antibiotics) <Jc Kumar MD - Last Filed: 03/15/22 06:22> Review of Systems Review of Systems: ROS unobtainable: Yes unobtainable due to mental status <Jc Kumar MD - Last Filed: 03/15/22 06:22> [facility] Past Medical History Medical History: Medical History (Updated 03/15/22 @ 08:07 by Ray Holcomb MD) Afib Anemia Arthritis of knee, right Back pain Depression Emphysema, unspecified CXR 10/2019 GERD (gastroesophageal reflux disease) Left elbow fracture Leg fracture, right Medication induced coagulopathy Orthostatic hypotension Shingles Spontaneous pneumothorax UTI (urinary tract infection) <Jc Kumar MD - Last Filed: 03/15/22 06:22> Surgical History Surgical History: Surgical History History of appendectomy History of tonsillectomy Status post cataract extraction of both eyes with insertion of intraocular lens <Jc Kumar MD - Last Filed: 03/15/22 06:22> Family History Family History: Family History Father Acute myocardial infarction Mother Alcoholism Sibling Cirrhosis <Jc Kumar MD - Last Filed: 03/15/22 06:22> Social History Social History: Social History Social History: She is since 2017. Her oldest daughter Rose lives with her. She has had 3 daughters. 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 Lifelong nonsmoker, no alcohol or illicit drugs. Had heavy secondhand smoke exposure as a child and young adult. Patient's father worked on the [employer]. Code status: DNR/DNI per patient request. She states that she is lived a long full life and is not afraid of . Healthcare power of boilermaker fitter: Rose (daughter) Smoking status: Never smoker Second hand tobacco smoke exposure: No Alcohol intake: never Substance use: never Substance use type: does not use Gender identity (if verbalized by the patient): Female Sexual Orientation (if Verbalized by the Patient): Straight or Heterosexual Spiritual care concerns: No
[2022-03-15] MEDS: LORazepam INJ (*CRX) 2 MG/ML VIAL 0.5 MG IV PUSH (05:45)
--- NOTE | 2022-03-15 07:19 | PC.NURSE ---
Assumed care of pt, pt is resting on stretcher w/ humidified O2 NC at 15 L. Pt on tele monitor w/ VSS. Pts daughter at bedside and discussed POC for pt. Awaiting pharmacy to open and will transport pt back to home on hospice once medications are obtained by family. Pharmacy opens at 0800.
== END 2022-03-15 10:01 | disposition hospice, home (50) ==
PROVIDERS: Emergency Provider Emergency Medicine; PCP Family Medicine Adolescent Medicine
DX: R06.02 Shortness of breath (principal); Z51.5 Encounter for palliative care; F03.90 Unspecified dementia, unspecified severity, without behavioral disturbance, psychotic disturbance, mood disturbance, and anxiety; I50.9 Heart failure, unspecified; I48.91 Unspecified atrial fibrillation; M17.11 Unilateral primary osteoarthritis, right knee; F32.A Depression, unspecified; J43.9 Emphysema, unspecified; K21.9 Gastro-esophageal reflux disease without esophagitis; Z86.2 Personal history of diseases of the blood and blood-forming organs and certain disorders involving the immune mechanism; Z87.440 Personal history of urinary (tract) infections; Z98.42 Cataract extraction status, left eye; Z98.41 Cataract extraction status, right eye; Z96.1 Presence of intraocular lens; Z77.22 Contact with and (suspected) exposure to environmental tobacco smoke (acute) (chronic); Z66 Do not resuscitate
CPT/HCPCS: 96374; 99284; J2060